=== PATIENT | male | born 1965 | race African-American/Black ===

== ENCOUNTER 2016-03-16 05:53 | Inpatient (IN) ==
[2016-03-16] MEDS ORDERED: ceFAZolin 1,000 MG VIAL ONE (07:09)
[2016-03-16] MEDS ORDERED: SODIUM CHLORIDE 0.9% 100 ML IV ONE (07:09)
[2016-03-16] MEDS ORDERED: MIDAZOLAM 2 MG/2 ML VIAL IV ONE (08:42)
[2016-03-16] MEDS ORDERED: fentaNYL 100 MCG/2 ML VIAL IV ONE (08:42)
[2016-03-16] MEDS ORDERED: DIAZEPAM 5 MG TABLET PO ONE (08:42)
[2016-03-16] MEDS ORDERED: SODIUM CHLORIDE 0.45% 1,000 ML IV SCH (09:00)
[2016-03-16] MEDS ORDERED: DIAZEPAM 5 MG TABLET ONE (09:28)
[2016-03-16 09:30] LABS: Basophils % 0.5 % (0.0-0.8); Eosinophils # 0.1 10*3/uL (0.0-0.87); Eosinophils % 1.8 % (0.00-10.9); Hematocrit 40.7 VOL% (42.0-52.0); Hemoglobin 12.4 GM/DL (14.0-18.0); Immature Granulocytes % 0.3 %; Immature Granulocytes Absolute 0.02 #; Lymphocytes # 3.2 10*3/uL (1.4-4.0); Lymphocytes % 40.4 % (21.2-54.2); Mean Corpuscular HGB Conc 30.5 GM/DL (32-36); Mean Corpuscular Hemoglobin 23 PG (27-34); Mean Corpuscular Volume 76.8 FL (87-102); Mean Platelet Volume 9.8 FL (9.6-12.0); Monocytes # 0.9 10*3/uL (0.11-0.8); Monocytes % 10.7 % (1.7-12.7); Neutrophils # 3.7 10*3/uL (1.4-7.4); Neutrophils % 46.3 % (38.7-73.9); Platelet Count 348 10*3/uL (130-400); Red Cell Distribution Width 21.7 % (9.3-17.3); White Blood Count 7.9 10*3/uL (4.5-13.71)
[2016-03-16 09:40] LABS: PT Patient Result 10.4 SECS
--- NOTE | 2016-03-16 09:45 | IR History and Physical Update ---
IR Pre-Procedure - History and Physical H&P was reviewed, the patient examined and there: are no changes in the patients condition since last H&P was completed. Reason for procedure:: PAD with ischemic ulcers left lower leg - Dictation Physical: refer to scanned H&P - Physical Exam Vital Signs: Last Vital Signs Temp 97.6 F 03/16/16 06:58 Pulse 84 03/16/16 06:58 Resp 20 03/16/16 06:58 BP 132/95 03/16/16 06:58 Pulse Ox 99 03/16/16 06:58 Mental Status: alert and oriented Heart: regular rate and rhythm Lung: clear to auscultation Abdomen: within normal limits - Sedation IR anesthesia plan for sedation: moderate ASA Class: III Airway Assessment: Class III: Soft palate, base of uvula visible - Risks Risks: Procedures explained. Risks discussed include, but not limited to, the following:[Bleeding, infection, injury to vessels ] All questions answered. The following alternatives were discussed:[Watchful waiting ] Risks and benefits discussed with: patient Consent obtained from: patient Assessment and Plan - Time spent with patient Time spent with patient: Less than 30 minutes (1) Peripheral vascular disease Problem details: LLE ischemic ulcers that are not healing Status: Acute Assessment and plan: Plan for formal arteriogram of the left lower extremity. No catheter based intervention is planned today although could be performed if indicated. Otherwise, plan is for hopeful surgical femoral-popliteal bypass if possible. Current Visit: No
[2016-03-16 09:54] LABS: Osmolality,Calculated 287.1 MOS/KG (273-304); Potassium 4.4 MMOL/L (3.5-5.1)
[2016-03-16] MEDS ORDERED: HEPARIN/NACL 0.9% 2 UNITS/ML 1,000 ML IV ONE (09:57)
[2016-03-16] MEDS ORDERED: MIDAZOLAM 2 MG/2 ML VIAL ONE (10:07)
[2016-03-16] MEDS ORDERED: fentaNYL 100 MCG/2 ML VIAL ONE (10:07)
--- NOTE | 2016-03-16 12:06 | Post Interventional Procedure ---
Pre-op diagnosis: PAD, LLE ischemic ulcerations Post-op diagnosis: same Procedure: pelvic and left lower extremity arteriogram Contrast: 90 mL Visipaque 320 Flouroscopy: 1.6 min Radiologist: Luis Carlos Guzman Anesthesia: conscious sedation Medications: 25 mcg intravenous fentanyl and 1 mg intravenous Versed and Total Sedation Time: 45 min Specimens: none sent Estimated blood loss: minimal (3 mL) Complications: none Condition: stable Description/Findings: Right common femoral artery was evaluated with ultrasound and no visualized and/ or atretic/occluded. The left common femoral artery is patent. On ultrasound, the superficial femoral artery appears to be occluded. Via a left common femoral artery access, pelvic arteriogram demonstrates essentially widely patent bilateral iliac vasculature. The left lower extremity runoff images demonstrate the deep femoral and muscular branches to the hypertrophied with complete occlusion of the proximal and mid left SFA. There is reconstitution at the distal SFA/ popliteal artery. There is a widely patent popliteal artery and trifurcation below the knee with minimal atherosclerotic disease visualized. No intervention was performed. All catheters and wires were removed. A Mynx closure device was utilized to obtain hemostasis. A sterile dressing was applied. Patient tolerated the procedure well and remained stable throughout. Assessment and Plan - Time spent with patient Time spent with patient: Greater than 30 minutes (1) Peripheral vascular disease Problem details: LLE ischemic ulcers that are not healing Status: Acute Assessment and plan: Plan for formal arteriogram of the left lower extremity. No catheter based intervention is planned today although could be performed if indicated. Otherwise, plan is for hopeful surgical femoral-popliteal bypass if possible. Current Visit: No
[2016-03-16] MEDS ORDERED: DEXTROSE 50% 25 GM/50 ML VIAL IV PRN (12:11)
[2016-03-16] MEDS ORDERED: GLUCAGON 1 MG VIAL IM PRN (12:11)
--- NOTE | 2016-03-16 12:20 | Interventional Radiology Rpt ---
IR angio extremity LT Clinical Information: 50-year-old male with diabetes mellitus, peripheral artery disease and nonhealing left lower extremity ischemic ulcers. History of right BKA and subsequent AKA for similar issues. Physician: Dr. Guzman Procedure: The patient was advised of the benefits, risks, and alternatives of the procedure and informed consent was obtained. A time out was performed with verification of the patient's name, MRN, site of procedure, and type of procedure to be performed. The patient was positioned in the supine position on the angiographic table. The site was prepped and draped in the usual sterile fashion. Moderate sedation was performed by the physician including the presence of an independent trained observer that assisted in monitoring the patient's level of consciousness and physiological status. Following the administration of 1 mg intravenous Versed and 25 mcg intravenous fentanyl the physician spent 45 minutes of continuous [id number] time with the patient. A director design radiograph reveals no relevant abnormality. 2% lidocaine was used for local anesthesia. The left common femoral artery was accessed with a microintroducer set. A short 0.018" wire was inserted and the needle was exchanged for a 4 Fr microintroducer sheath. The guidewire and dilator were removed and a 0.035" J-wire was advanced into the abdominal aorta. A 6 Fr sheath was placed over the wire. A 5F Omniflush catheter was inserted through the sheath and placed into the lower abdominal aorta. Aortography demonstrates normal caliber distal aorta and widely patent bilateral common and external iliac vessels. The Omniflush catheter was then exchanged for a 5 Cypriot straight flush catheter. The left external iliac artery was catheterized. From this position, a bolus phase runoff arteriogram covering the entire left lower extremity was performed. There is complete occlusion of the proximal and is superficial femoral artery with reconstitution via multiple collaterals at the distal SFA/proximal popliteal artery. Just above the knee, the indwelling popliteal stent is patent with mild recurrent in-stent stenosis suggested. The popliteal artery remains widely patent with minimal atherosclerotic disease posterior to the knee. There is a normal trifurcation pattern with widely patent vessels below the knee. The is anterior tibial and dorsalis pedis artery are widely patent into the foot. Given the findings, no intervention was warranted. A Mynx closure device was utilized to obtain hemostasis at the left common femoral puncture site. The patient tolerated the procedure well and was returned to the PRU in stable condition. EBL: < 5 mL. Complications: None. Fluoroscopy time: 1.6 minutes Conclusion: Complete occlusion of the proximal and mid superficial femoral arteries with reconstitution via multiple collaterals at the distal SFA/proximal popliteal artery. Otherwise widely patent popliteal vessel and trifurcation in the lower leg. PROCEDURE INTERPRETED AT [facility] DEPARTMENT OF RADIOLOGY Final Report Signed by: Luis Carlos Guzman
--- NOTE | 2016-03-16 16:20 | Event Note ---
Mr. Velasquez's arteriogram indicates a good aortoiliac system common femoral on the left is in good condition femoral was completely occluded to the popliteal and we have reasonably good popliteal flow and runoff. I think that we would be best served with a vein femoral-popliteal bypass I've advised Mr. Velasquez about this previously in the office and again today he understands poorly the risk and complications and it limb loss may eventually occurred. He understands there is risk of infection bleeding and non-usable vein that would require prosthetic device that would increase the chance of early thrombosis he agrees with the plan we will do a left femoral-popliteal bypass with vein tomorrow
[2016-03-16] MEDS ORDERED: ALBUTEROL 2.5 MG/3 ML NEB RESP TX PRN (16:30)
--- NOTE | 2016-03-16 18:03 | Hospitalist History & Physical ---
Assessment and Plan (1) Peripheral arterial disease Status: Acute Assessment and plan: due to smoking, HTN, IDDM Current Visit: Yes (2) Diabetes mellitus Status: Acute Assessment and plan: ISC, lantus, hold metformin Current Visit: No (3) Essential (primary) hypertension Status: Acute Assessment and plan: norvasc, metoprolol, lisinopril Current Visit: No History of Present Illness Chief complaint: medical management of DM and HTN History of present illness: Mr. Velasquez is a 50 year old male with history of PAD reports nonhealing wounds on his shins and calf. Angiography shows complete occlusion of the proximal and mid superficial femoral arteries with reconstitution and collaterals in the distal superficial femoral artery and proximal popliteal artery patient's leg is quite swollen as he keeps it hanging down because he said the pain is better. Dr. Wallace asked us to manage his diabetes and hypertension while in the hospital. Patient had today and we will hold his metformin. Home Medications Medication Instructions Recorded Confirmed Type Amlodipine Besylate 10 mg PO DAILY 04/11/15 03/16/16 History Clopidogrel Bisulfate [Clopidogrel] 75 mg PO DAILY 04/11/15 03/16/16 History Lovastatin 10 mg PO DAILY W/BREAKFAST 04/11/15 03/16/16 History Metoprolol Tartrate 100 mg PO DAILY 04/11/15 03/16/16 History Insulin Glargine [Lantus] 35 unit SUBCUT 2300 09/12/15 03/16/16 History Lisinopril 10 mg PO DAILY 09/12/15 03/16/16 History metFORMIN [Glucophage] 850 mg PO TID 01/29/16 03/16/16 History Cilostazol [Pletal] 50 mg PO DAILY 03/13/16 03/16/16 History Albuterol Sulfate [Ventolin HFA] 2 puff INH Q4HR PRN 03/16/16 03/16/16 History Gabapentin 100 mg PO BID 03/16/16 03/16/16 History Montelukast Tab [Singulair Tab] 10 mg PO DAILY 03/16/16 03/16/16 History Allergies Allergy/AdvReac Type Severity Reaction Status Date / Time sulfamethoxazole Allergy Severe ANAPHYLAXIS Verified 01/29/16 08:58 [From Bactrim] trimethoprim [From Bactrim] Allergy Severe ANAPHYLAXIS Verified 01/29/16 08:58 Medical,Surgical,& Family Hx - Medical History Cardio: History of: Hypertension, Cardiovascular Problems (dvt in left leg) Neurology: History of: Cerebrovascular Accident (Mr. Velasquez reports multiple strokes in he believes 2008), Migraine (past history) No history of: Seizures HEENT: History of: Eye Problem (no vision in left eye and poor vision in right eye, glasses), Dental Problems Endocrine: History of: Diabetes Mellitus (IDDM), Dyslipidemia Respiratory: History of: Asthma (PT STATES HE DOES NOT USE INHALER), Bronchitis (past history) Genitourinary: History of: Kidney Stones (DR FRANCOIS) Gastrointestinal: History of: GI Problems (occasional diarrhea and stomach pains ) Musculoskeletal: History of: Amputation (Rt AKA), Back/Neck Problems (lower back pains), Musculoskeletal Problems (arthritis) Hematology: History of: Clotting Problems (blood clot in left leg and left carotid artery) No history of: Blood Transfusion Reaction Other: History of: Miscellaneous Medical Problems (NON HEALING WOUND TO LEFT LOWER EXT., rt AKA) No history of: Anesthesia Reactions - Surgical History Cardiac Surgeries: Sugical HX of: Femoral-Popliteal Bypass Graft, Carotid Endarterectomy (left DR WALLACE 2006) HEENT Surgeries: Surgical HX of: Carotid Endarterectomy (left DR WALLACE 2006), Eye Surgery (2006) Abdominal Surgeries: Surgical HX of: Colonoscopy Orthopedic Surgeries: Surgical HX of;: Implanted Devices (bilateral femoral stents), Orthopedic Surgery (bilateral knee scope) - Family History Family History: Reports;: Family Diabetes (Mother, Father), Family Heart Disease (Mother, Father), Family Hypertension (Mother, Father), Family Stroke ( Mother, Father) Denies;: Family Anesthesia Reaction, Family Cancer, Family Psychiatric Problems - Social History Smoking Status: Current every day smoker Frequency of Alcohol Use: None Type of Drug Use: None Marital Status: Single Lives With:: Alone Functional capacity: uses cane/walker - Constitutional Constitutional: Absent: fatigue, fever(s), headache(s) - EENT Eyes: Present: loss of vision (left blind from stroke ). Absent: blurry vision Ears: Absent: decreased hearing, ear discharge Nose, mouth and throat: Absent: headache(s), sore throat - Cardiovascular Cardiovascular: Present: dyspnea on exertion, edema. Absent: chest pain at rest , chest pain with activity, dyspnea - Respiratory Respiratory: Present: cough, dyspnea on exertion, wheezing, change in phlegm color. Absent: dyspnea - Gastrointestinal Gastrointestinal: Absent: constipation, diarrhea, nausea, vomiting - Genitourinary Genitourinary: Absent: difficulty urinating, dysuria - Neurological Neurological: Absent: confusion, headache(s), syncope - Psychiatric Psychiatric: Present: depression. Absent: anxiety - Endocrine Endocrine: Absent: cold intolerance, heat intolerance - Hematologic/Lymphatic Hematologic/Lymphatic: Absent: easy bleeding, easy bruising Exam - Constitutional Vitals: Period Temp Pulse Resp BP Sys/Kennedy Pulse Ox Last 24 Hr 97.6 F-97.7 F 77-93 14-20 108-162/55-95 96-100 General appearance: normal weight, no acute distress - Head Head exam: Present: normal inspection, normocephalic - Eye Eye exam: Present: EOMI. Absent: scleral icterus Pupils: Present: EM, normal accommodation - ENT ENT exam: Present: normal exam, normal external ear exam - Neck Neck exam: Absent: lymphadenopathy, thyromegaly - Respiratory Respiratory exam: Present: clear to auscultation bilaterally (clear with coughing ), wheezes. Absent: rhonchi - Cardiovascular Cardiovascular exam: Present: regular rate and rhythm. Absent: systolic murmur - GI/Abdominal GI/Abdominal exam: Present: normal bowel sounds, soft. Absent: tenderness - Extremities Exam Extremities exam: Present: edema (2+ edema) - Neurological Exam Neurological exam: Present: alert, oriented X3, CN II-XII intact, motor sensory deficit (diminished sensation to left leg ) - Psychiatric Psychiatric exam: Present: normal affect, normal mood Results - Labs CBC & BMP: 03/16/16 09:23 03/16/16 09:23 Lab Results: I have reviewed the past 24 hour labs - Diagnostic Findings Procedure: X-ray: report reviewed by me (Angiogram showed complete occlusion of the proximal mid superficial femoral arteries with collaterals in the distal superficial femoral artery and proximal popliteal artery)
--- NOTE | 2016-03-16 18:45 | XRay Report ---
XR chest 1V portable Indication: Shortness of breath. Chest one view: Comparison 01/31/2016. Heart size and mediastinal contour are normal. Lungs are hypoinflated but generally clear, except for minimal bibasilar atelectasis. Pleural spaces are clear. Bones are intact. Impression: Mild pulmonary hypoinflation with atelectasis. PROCEDURE INTERPRETED AT [facility] DEPARTMENT OF RADIOLOGY Final Report Signed by: Matias Beltran M.D.
[2016-03-16] MEDS: ALBUTEROL/IPRATROPIUM 3 ML NEB RESP TX SCH (19:07)
[2016-03-16] MEDS: GABAPENTIN 100 MG CAPSULE PO SCH (20:49)
[2016-03-16] MEDS: INSULIN LISPRO 100 UNIT/ML SUBCUT SCH (20:49)
[2016-03-16] MEDS ORDERED: INSULIN GLARGINE 100 UNIT/ML SUBCUT SCH (23:00)
[2016-03-17] MEDS: ALBUTEROL/IPRATROPIUM 3 ML NEB RESP TX SCH ×7 (00:41→23:00)
[2016-03-17] MEDS ORDERED: ALBUTEROL/IPRATROPIUM 3 ML NEB RESP TX ONE (06:00)
[2016-03-17] MEDS ORDERED: VANCOMYCIN INJ 1,000 MG in SODIUM CHLORIDE 0.9% 250 ML IV ONE (07:00)
[2016-03-17] MEDS: METOPROLOL TARTRATE 100 MG TABLET PO SCH ×2 (07:51→09:58)
[2016-03-17] MEDS: amLODIPine 10 MG TABLET PO SCH ×2 (07:51→08:02)
[2016-03-17] MEDS: NICOTINE 21 MG/24 HR PATCH TRANSDERM SCH ×2 (07:51→08:02)
[2016-03-17] MEDS: LISINOPRIL 10 MG TABLET PO SCH ×2 (07:51→08:02)
[2016-03-17] MEDS: INSULIN LISPRO 100 UNIT/ML SUBCUT SCH ×4 (07:54→20:21)
[2016-03-17] MEDS: CILOSTAZOL 50 MG TABLET PO SCH (08:02)
[2016-03-17] MEDS: CLOPIDOGREL 75 MG TABLET PO SCH (08:02)
[2016-03-17] MEDS ORDERED: BUPIVACAINE 0.5% 50 ML VIAL ONE (08:14)
[2016-03-17] MEDS ORDERED: HEPARIN 5,000 UNIT/1 ML VIAL ONE (08:14)
[2016-03-17] MEDS ORDERED: THROMBIN TOPICAL (RECOMBINANT) 5,000 UNIT VIAL TOP ONE (08:14)
[2016-03-17] MEDS ORDERED: ROCURONIUM 100 MG/10 ML VIAL IV ONE (08:31)
[2016-03-17] MEDS ORDERED: ESMOLOL 100 MG/10 ML VIAL IV ONE (08:31)
[2016-03-17] MEDS ORDERED: LIDOCAINE 1% 5 ML VIAL ONE (08:31)
[2016-03-17] MEDS ORDERED: PROPOFOL 200 MG/20 ML VIAL IV ONE (08:31)
[2016-03-17] MEDS ORDERED: PHENYLEPHRINE 1 MG/10 ML SYRINGE IV ONE (08:31)
[2016-03-17] MEDS ORDERED: METOPROLOL TARTRATE 5 MG/5 ML VIAL IV ONE (08:31)
[2016-03-17] MEDS ORDERED: ONDANSETRON 4 MG/2 ML VIAL IV PRN ×2 (12:29→13:14)
[2016-03-17] MEDS ORDERED: SEVOFLURANE 1 UNIT/15 MINUTE INH ONE (12:39)
[2016-03-17] MEDS ORDERED: MIDAZOLAM 2 MG/2 ML VIAL ONE (12:39)
[2016-03-17] MEDS ORDERED: fentaNYL 100 MCG/2 ML VIAL ONE ×2 (12:39)
[2016-03-17 12:49] LABS: Hematocrit 37.6 VOL% (42.0-52.0); Hemoglobin 11.6 GM/DL (14.0-18.0)
[2016-03-17] MEDS: LACTATED RINGERS 1,000 ML IV SCH (12:51)
[2016-03-17] MEDS ORDERED: HYDROmorphone 2 MG/1 ML VIAL IV PRN (13:14)
[2016-03-17 13:16] LABS: Calcium 8.2 MG/DL (8.5-10.1); Osmolality,Calculated 285.3 MOS/KG (273-304); Potassium 4.8 MMOL/L (3.5-5.1)
[2016-03-17] MEDS: GABAPENTIN 100 MG CAPSULE PO SCH ×2 (13:55→20:21)
[2016-03-17] MEDS: MONTELUKAST 10 MG TABLET PO SCH (13:55)
[2016-03-17] MEDS: LOVASTATIN 20 MG TABLET PO SCH (13:55)
[2016-03-17] MEDS: VANCOMYCIN INJ 1,000 MG in SODIUM CHLORIDE 0.9% 250 ML IV SCH (15:01)
[2016-03-17] MEDS: HYDROmorphone 2 MG/1 ML VIAL IV PRN ×2 (15:02→21:43)
--- NOTE | 2016-03-17 15:19 | Hospitalist Progress Note ---
Assessment and Plan (1) Peripheral arterial disease Status: Acute Assessment and plan: due to smoking, HTN, IDDM, s/p fem pop bypass Current Visit: Yes (2) Diabetes mellitus Status: Acute Assessment and plan: ISC, increase lantus Current Visit: No (3) Essential (primary) hypertension Status: Acute Assessment and plan: cont metoprolol and lisinopril, hold norvasc Current Visit: No Hospitalist: Subjective Interval history: Saw patient in recovery room. Patient was snoring we elevated the head of the bed so he can breathe better. He was still sedated from anesthesia. Exam - Constitutional Vitals: Period Temp Pulse Resp BP Sys/Kennedy Pulse Ox Last 24 Hr 97 F-98.4 F 70-98 13-26 109-138/60-94 93-100 Exam: Heart Rate-[RRR] Lungs-[CTAB] GI-[+bs soft, NT] Ext-[no edema] Neuro still waking up psych unable to assess general no acute distress Results - Labs CBC & BMP: 03/17/16 12:45 03/17/16 12:45 Lab Results: I have reviewed the past 24 hour labs Quality Measures - VTE Contraindication to Pharmacological VTE Prophylaxis: High Risk of Bleeding
--- NOTE | 2016-03-17 16:41 | Operative Note ---
DATE: 03/17/2016 SURGEON: Kyle Wallace MD ANESTHESIA: Jennie, general endotracheal. PREOPERATIVE DIAGNOSIS: DIABETIC PERIPHERAL VASCULAR DISEASE WITH ISCHEMIC ULCERS, NONHEALING OF THE LEFT LOWER LEG. POSTOPERATIVE DIAGNOSIS: SAME. OPERATION PERFORMED: A left femoral popliteal bypass with in situ saphenous vein, on-table venography and completion arteriography. Note: Extra difficulty due to scarring from previous vascular procedures at the common femoral artery. INDICATION FOR THE PROCEDURE: Mr. Velasquez is a 50-year-old man with diabetes and diabetic peripheral vascular disease. He has undergone previous left femoral endarterectomy, remote endarterectomy, and stenting. He has had multiple procedures on the right leg that eventually resulted in a right above- knee amputation. He has got ischemic ulcers of the left lower leg with rest pain. I have offered a left femoral popliteal bypass hopefully with vein, explaining the alternatives, risks, and complications all of which he understands well and accepts. DESCRIPTION OF THE PROCEDURE: After the induction of general endotracheal anesthesia, the patient's abdomen and leg to the midcalf are prepped with ChloraPrep and Ioban. The lower foot with ulcers is prepped with ChloraPrep and covered with an isolation bag and wrapped with Ioban as well. I began at the groin making an incision over the femoral canal through the previous incision. This was carried down to the femoral canal. The saphenous vein was noted. It had been previously evaluated with ultrasound and appeared to be adequate. I dissected the proximal saphenous vein using 4-0 silk suture ligatures and hemoclips to control side branches dissected all the way to the saphenofemoral junction. I then spent a great deal of extra time exposing the common femoral and profunda femoris and superficial femoral arteries. These were markedly scarred from the previous remote endarterectomy approximately 8 to 10 years ago. This took a good bit of time but eventually I was able to control the common femoral artery under the inguinal ligament, the profunda. The superficial femoral was completely scarred and non-patent. These were covered. I then turned my attention to the lower leg. The patient appeared to have a popliteal artery that was patent above the knee, although very close and with a stent in the proximal popliteal artery. I marked the saphenous vein, which was a bit more posterior than I would normally use. I initially made an incision and exposed the saphenous vein, which did appear to be a good vein. I dissected into the popliteal space and noted that I could use the popliteal artery just above the knee. It was controlled with vessel loops as well. The patient received 5000 units of intravenous Heparin. In initially turned my attention again to the groin, where I controlled the saphenofemoral junction with a Satinsky and divided the saphenofemoral junction and oversewed the femoral vein with a running 5-0 Prolene suture. Proximal valve lysis was carried out. I then opened the femoral artery. I actually completely divided the superficial femoral away from the bifurcation and got a good opening that gave good visualization of the profunda and the common femoral. This proximal saphenous vein was anastomosed end-to-side to the common femoral artery with a running 5-0 Prolene under loupe magnification getting good flow into the proximal saphenous vein. I turned my attention to the lower leg and divided the distal saphenous vein at a length that would allow an anastomosis to the mid popliteal artery. I initially performed a valve lysis with a LeMaitre valvulotome getting good flow in the distal vein. I then used a catheter and performed a venography noting the side branches that would cause fistulas, these were marked. I then opened the popliteal artery taking a small wedge of the artery out. The vein was trimmed and anastomosed end-to-side to the popliteal artery with a running 6-0 Prolene suture, again using loupe magnification. I initiated flow from the vein graft into the proximal popliteal and then into the distal popliteal and initially flow appeared to be good. I began taking down further vein to get to the branches for control. As I did so, I suddenly lost flow in the saphenous vein at a level at about these branches. I spent a bit of time doing further venography, and I had to open the vein distally and perform further valve lysis to restore flow. Then, I had good Doppler flow. The proximal branches were controlled. Completion arteriography showed a good vein graft flowing into the popliteal artery with good flow into the lower leg. I did not try to visualize all the way to the foot or ankle, however. The small venotomies were closed with 6-0 Prolene suture. Flow was good. I did not reverse Heparin. The incisions were irrigated with saline and Vancomycin. SurgiSeal was placed over each anastomosis. The incisions were closed with layers of running 2-0 Monocryl and skin clips. A 1/4-inch Vidor drain was placed at the popliteal incision to allow drainage overnight. Blood loss is estimated at 200 to 250 cc. Sponge, needle, and instrument counts are correct, and the patient taken to recovery in stable condition. Again, note that this procedure was more difficult than normal due to the amount of scarring at the common femoral artery. COLT
--- NOTE | 2016-03-17 17:34 | Event Note ---
Mr. Velaqsuez is awake alert and well his foot is warm. No hematoma in the groins for popliteal space
[2016-03-17] MEDS: oxyCODONE/ACETAMINOPHEN 5-325 MG TABLET PO PRN (20:21)
[2016-03-17] MEDS: INSULIN GLARGINE 100 UNIT/ML SUBCUT SCH (23:17)
[2016-03-18] MEDS: LACTATED RINGERS 1,000 ML IV SCH ×2 (00:40→10:02)
[2016-03-18] MEDS: VANCOMYCIN INJ 1,000 MG in SODIUM CHLORIDE 0.9% 250 ML IV SCH ×2 (00:40→12:05)
[2016-03-18] MEDS: HYDROmorphone 2 MG/1 ML VIAL IV PRN (01:36)
[2016-03-18] MEDS: ALBUTEROL/IPRATROPIUM 3 ML NEB RESP TX SCH ×5 (02:40→19:25)
[2016-03-18 04:39] LABS: Basophils % 0.3 % (0.0-0.8); Eosinophils # 0.1 10*3/uL (0.0-0.87); Eosinophils % 0.7 % (0.00-10.9); Hematocrit 31.5 VOL% (42.0-52.0); Hemoglobin 9.7 GM/DL (14.0-18.0); Immature Granulocytes % 0.3 %; Immature Granulocytes Absolute 0.05 #; Lymphocytes # 4.1 10*3/uL (1.4-4.0); Lymphocytes % 28.1 % (21.2-54.2); Mean Corpuscular HGB Conc 30.8 GM/DL (32-36); Mean Corpuscular Hemoglobin 24 PG (27-34); Mean Corpuscular Volume 77.6 FL (87-102); Mean Platelet Volume 10.4 FL (9.6-12.0); Monocytes # 1.7 10*3/uL (0.11-0.8); Monocytes % 11.7 % (1.7-12.7); Neutrophils # 8.6 10*3/uL (1.4-7.4); Neutrophils % 58.9 % (38.7-73.9); Platelet Count 289 T/CUMM (130-400); Red Blood Count 4.06 MC/CUMM (3.8-5.5); Red Cell Distribution Width 21.5 % (9.3-17.3); White Blood Count 14.7 T/CUMM (4-12)
[2016-03-18] MEDS: oxyCODONE/ACETAMINOPHEN 5-325 MG TABLET PO PRN ×2 (04:49→17:30)
[2016-03-18 05:10] LABS: Calcium 8.4 MG/DL (8.5-10.1); Osmolality,Calculated 285.3 MOS/KG (273-304); Potassium 4.5 MMOL/L (3.5-5.1)
[2016-03-18] MEDS: CLOPIDOGREL 75 MG TABLET PO SCH (09:55)
[2016-03-18] MEDS: CILOSTAZOL 50 MG TABLET PO SCH (09:55)
[2016-03-18] MEDS: ASPIRIN CHEW 81 MG TABLET PO SCH (09:55)
[2016-03-18] MEDS: LOVASTATIN 20 MG TABLET PO SCH (09:56)
[2016-03-18] MEDS: MONTELUKAST 10 MG TABLET PO SCH (09:56)
[2016-03-18] MEDS: GABAPENTIN 100 MG CAPSULE PO SCH ×2 (09:56→22:00)
[2016-03-18] MEDS: INSULIN LISPRO 100 UNIT/ML SUBCUT SCH ×4 (09:57→22:00)
[2016-03-18] MEDS: NICOTINE 21 MG/24 HR PATCH TRANSDERM SCH (09:58)
[2016-03-18] MEDS: METOPROLOL TARTRATE 100 MG TABLET PO SCH (10:05)
[2016-03-18] MEDS: LISINOPRIL 10 MG TABLET PO SCH (10:05)
--- NOTE | 2016-03-18 11:13 | Event Note ---
Mr. Velasquez's foot remains warm and is much more comfortableincisions look good no hematomas I removed the [place] drain I've got a good Doppler flow in the vein graft. I don't really palpate any pedal pulses. We will get him up out of the bed and I'll ask wound care diet today with these lower
--- NOTE | 2016-03-18 11:35 | Anesthesia ---
Anesthesia Post OP - Post Ansesthetic Evaluation Patient seen in post op: Yes Resp: within normal limits CV: within normal limits Mental: within normal limits Temp: within normal limits Aldm-Rq-[id number]: within normal limits Nausea and Vomiting: within normal limits Pain: within normal limits
--- NOTE | 2016-03-18 13:10 | Hospitalist Progress Note ---
Assessment and Plan (1) Peripheral arterial disease Status: Acute Assessment and plan: due to smoking, HTN, IDDM, s/p fem pop bypass doing well Current Visit: Yes (2) Diabetes mellitus Status: Acute Assessment and plan: ISC, not controlled, will add metformin tomorrow, started glyburide 5 mg po bid Current Visit: No (3) Essential (primary) hypertension Status: Acute Assessment and plan: Change metoprolol to 50 mg p.o. twice daily Current Visit: No Hospitalist: Subjective Interval history: Patient was offered a place to go for rehab but he has declined. He usually declines due to the fact that he cannot smoke in rehab. We will set up home health for him. His foot is warm when I examined it today. Dr. Wallace and I discussed the case. Exam - Constitutional Vitals: Period Temp Pulse Resp BP Sys/Kennedy Pulse Ox Last 24 Hr 97.3 F-98.7 F 81-121 13-20 95-137/52-94 93-100 Exam: Heart Rate-[tachy] Lungs-[CTAB] GI-[+bs soft, NT] Ext-[no edema] Neuro motor 5 out of 5, alert and oriented 3 psych normal mood and affect general no acute distress Results - Labs CBC & BMP: 03/18/16 04:01 03/18/16 04:01 Lab Results: I have reviewed the past 24 hour labs Quality Measures - VTE Contraindication to Pharmacological VTE Prophylaxis: High Risk of Bleeding
[2016-03-18] MEDS: glyBURIDE 5 MG TABLET PO SCH (16:52)
[2016-03-18] MEDS: COLLAGENASE OINT 30 GM TUBE TOP SCH (18:59)
[2016-03-18] MEDS: SODIUM HYPOCHLORITE 0.25% IRRIG 473 ML BOTTLE TOP SCH (18:59)
[2016-03-18] MEDS: METOPROLOL TARTRATE 50 MG TABLET PO SCH (22:00)
[2016-03-18] MEDS: INSULIN GLARGINE 100 UNIT/ML SUBCUT SCH (22:00)
[2016-03-19] MEDS: ALBUTEROL/IPRATROPIUM 3 ML NEB RESP TX SCH ×5 (00:21→14:03)
[2016-03-19] MEDS: HYDROmorphone 2 MG/1 ML VIAL IV PRN ×2 (04:15→22:35)
--- NOTE | 2016-03-19 09:18 | Event Note ---
Mr. Velasquez's foot remains warm today palpate a pulse in the vein graft wounds are started clean and local care. I'm going to plan for him morning with home health
[2016-03-19] MEDS: INSULIN LISPRO 100 UNIT/ML SUBCUT SCH ×4 (09:32→22:37)
[2016-03-19] MEDS: glyBURIDE 5 MG TABLET PO SCH ×2 (09:51→18:53)
[2016-03-19] MEDS: NICOTINE 21 MG/24 HR PATCH TRANSDERM SCH (09:51)
[2016-03-19] MEDS: GABAPENTIN 100 MG CAPSULE PO SCH ×2 (09:51→22:37)
[2016-03-19] MEDS: ASPIRIN CHEW 81 MG TABLET PO SCH (09:51)
[2016-03-19] MEDS: CILOSTAZOL 50 MG TABLET PO SCH (09:51)
[2016-03-19] MEDS: METOPROLOL TARTRATE 50 MG TABLET PO SCH ×2 (09:51→22:36)
[2016-03-19] MEDS: LOVASTATIN 20 MG TABLET PO SCH (09:51)
[2016-03-19] MEDS: CLOPIDOGREL 75 MG TABLET PO SCH (09:51)
[2016-03-19] MEDS: MONTELUKAST 10 MG TABLET PO SCH (09:51)
[2016-03-19] MEDS: oxyCODONE/ACETAMINOPHEN 5-325 MG TABLET PO PRN ×2 (09:52→15:59)
[2016-03-19] MEDS: LISINOPRIL 10 MG TABLET PO SCH (13:04)
[2016-03-19] MEDS ORDERED: ACETAMINOPHEN 325 MG TABLET PO PRN (15:38)
--- NOTE | 2016-03-19 15:44 | Hospitalist Progress Note ---
Assessment and Plan (1) Peripheral arterial disease Status: Acute Assessment and plan: due to smoking, HTN, IDDM, s/p fem pop bypass doing well Current Visit: Yes (2) Diabetes mellitus Status: Acute Assessment and plan: ISC, restarted metformin Current Visit: No (3) Essential (primary) hypertension Status: Acute Assessment and plan: Cont metoprolol to 50 mg p.o. twice daily Current Visit: No (4) Fever Status: Acute Assessment and plan: Blood cultures 2, UA, start vancomycin, monitor CBC Current Visit: Yes (5) COPD (chronic obstructive pulmonary disease) Status: Acute Assessment and plan: Stable, stop breathing treatments. Current Visit: Yes Hospitalist: Subjective Interval history: Patient running fevers to yesterday. Wounds look chronic. New surgical site looks excellent. We will draw some blood cultures and start some vancomycin and monitor. Blood sugars are too high. Exam - Constitutional Vitals: Period Temp Pulse Resp BP Sys/Kennedy Pulse Ox Last 24 Hr 97.4 F-101.7 F 70-130 18-22 104-135/57-65 92-100 Exam: Heart Rate-[tachy] Lungs-[CTAB] GI-[+bs soft, NT] Ext-[no edema] Neuro motor 5 out of 5, alert and oriented 3 psych normal mood and affect general no acute distress wound chronic noninfected nonhealing wound in left lower extremity, surgical site looks good Results - Labs CBC & BMP: 03/18/16 04:01 03/18/16 04:01 Lab Results: I have reviewed the past 24 hour labs Quality Measures - VTE Contraindication to Pharmacological VTE Prophylaxis: High Risk of Bleeding
[2016-03-19] MEDS ORDERED: VANCOMYCIN INJ 1,000 MG in SODIUM CHLORIDE 0.9% 250 ML IV SCH (16:00)
[2016-03-19] MEDS: VANCOMYCIN INJ 1,750 MG in SODIUM CHLORIDE 0.9% 500 ML IV SCH (18:08)
[2016-03-19] MEDS: metFORMIN 500 MG TABLET PO SCH (18:47)
[2016-03-19] MEDS: SODIUM HYPOCHLORITE 0.25% IRRIG 473 ML BOTTLE TOP SCH (19:28)
[2016-03-19] MEDS: COLLAGENASE OINT 30 GM TUBE TOP SCH (19:29)
[2016-03-19 19:46] LABS: Apearance,Urine Slightly Hazy (Clear); Bilirubin,Urine Negative (Negative); Blood, Urine Negative (Negative); Glucose,Urine (UA) >=500 mg/dL (Negative); Ketones,Urine Negative (Negative); Mucus,Urine Occasional /LPF (Occasional); Nitrite,Urine Negative (Negative); Protein,Urine Negative; RBC,Urine 1 /HPF (0-4); Squamous Epithelial Cell,Urine Occasional /HPF (0-10); Urine Color Yellow (Yellow); Urine Urobilinogen < 2.0 EU/DL (0.2-1.0); WBC,Urine 3 /HPF (0-6)
[2016-03-19] MEDS: INSULIN GLARGINE 100 UNIT/ML SUBCUT SCH (22:37)
[2016-03-20] MEDS: VANCOMYCIN INJ 1,750 MG in SODIUM CHLORIDE 0.9% 500 ML IV SCH ×3 (05:28→22:53)
[2016-03-20] MEDS: HYDROmorphone 2 MG/1 ML VIAL IV PRN ×3 (05:37→22:47)
[2016-03-20 06:25] LABS: Basophils % 0.2 % (0.0-0.8); Eosinophils # 0.2 10*3/uL (0.0-0.87); Eosinophils % 1.8 % (0.00-10.9); Hematocrit 30.3 VOL% (42.0-52.0); Hemoglobin 9.3 GM/DL (14.0-18.0); Immature Granulocytes % 0.3 %; Immature Granulocytes Absolute 0.03 #; Lymphocytes # 2.4 10*3/uL (1.4-4.0); Lymphocytes % 21.5 % (21.2-54.2); Mean Corpuscular HGB Conc 30.7 GM/DL (32-36); Mean Corpuscular Hemoglobin 24 PG (27-34); Mean Corpuscular Volume 76.7 FL (87-102); Mean Platelet Volume 10.3 FL (9.6-12.0); Monocytes # 1.7 10*3/uL (0.11-0.8); Monocytes % 15.2 % (1.7-12.7); Neutrophils # 6.7 10*3/uL (1.4-7.4); Platelet Count 268 T/CUMM (130-400); Red Blood Count 3.95 MC/CUMM (3.8-5.5); Red Cell Distribution Width 21.3 % (9.3-17.3)
--- NOTE | 2016-03-20 08:12 | Event Note ---
Estrellita Velasquez had a left femoral [id number] popliteal bypass with in situ vein on Wednesday has some chronic ischemic ulcers of the left lower leg and appear to be doing well has a weakly palpable pulse in the vein graft that's actually fairly deep under the tissues. He developed fever and was started on vancomycin yesterday with fever has resolved and he does not have a significant elevation was white blood count blood cultures are pending. I had anticipated letting him go home today with the fever and blood cultures I think we should continue him here on vancomycin until that issue is
[2016-03-20] MEDS: INSULIN LISPRO 100 UNIT/ML SUBCUT SCH ×4 (09:20→20:39)
[2016-03-20] MEDS: LISINOPRIL 10 MG TABLET PO SCH (09:21)
[2016-03-20] MEDS: CILOSTAZOL 50 MG TABLET PO SCH (09:21)
[2016-03-20] MEDS: LOVASTATIN 20 MG TABLET PO SCH (09:21)
[2016-03-20] MEDS: METOPROLOL TARTRATE 50 MG TABLET PO SCH ×2 (09:21→20:40)
[2016-03-20] MEDS: MONTELUKAST 10 MG TABLET PO SCH (09:21)
[2016-03-20] MEDS: GABAPENTIN 100 MG CAPSULE PO SCH ×2 (09:21→20:40)
[2016-03-20] MEDS: CLOPIDOGREL 75 MG TABLET PO SCH (09:21)
[2016-03-20] MEDS: NICOTINE 21 MG/24 HR PATCH TRANSDERM SCH (09:22)
[2016-03-20] MEDS: glyBURIDE 5 MG TABLET PO SCH ×2 (09:22→17:23)
[2016-03-20] MEDS: metFORMIN 500 MG TABLET PO SCH ×2 (09:22→17:23)
[2016-03-20] MEDS: ASPIRIN CHEW 81 MG TABLET PO SCH (09:22)
[2016-03-20] MEDS: COLLAGENASE OINT 30 GM TUBE TOP SCH (09:28)
[2016-03-20] MEDS: SODIUM HYPOCHLORITE 0.25% IRRIG 473 ML BOTTLE TOP SCH (09:28)
--- NOTE | 2016-03-20 11:24 | Hospitalist Progress Note ---
Assessment and Plan (1) Peripheral arterial disease Status: Acute Assessment and plan: due to smoking, HTN, IDDM, s/p fem pop bypass doing well Current Visit: Yes (2) Diabetes mellitus Status: Acute Assessment and plan: ISC, continue glyburide and metformin Current Visit: No (3) Essential (primary) hypertension Status: Acute Assessment and plan: Cont metoprolol to 50 mg p.o. twice daily Current Visit: No (4) Fever Status: Acute Assessment and plan: Blood cultures 2 pending, UA negative, continue vancomycin, CBC improved, no source found, repeat chest x-ray may be just atelectasis Current Visit: Yes (5) COPD (chronic obstructive pulmonary disease) Status: Acute Assessment and plan: Stable, stop breathing treatments. Current Visit: Yes Hospitalist: Subjective Interval history: Patient is feeling better today. His fevers are better but we do not have a source of his infection. His wounds look excellent. I am awaiting his first set of blood cultures. Blood sugars are still running high but I restarted his metformin yesterday. Exam - Constitutional Vitals: Period Temp Pulse Resp BP Sys/Kennedy Pulse Ox Last 24 Hr 98.2 F-99.3 F 98-111 17-18 93-114/53-68 94-100 Exam: Heart Rate-[tachy] Lungs-[CTAB] GI-[+bs soft, NT] Ext-[no edema] Neuro motor 5 out of 5, alert and oriented 3 psych normal mood and affect general no acute distress skin bottom no wounds Results - Labs CBC & BMP: 03/20/16 05:40 03/18/16 04:01 Lab Results: I have reviewed the past 24 hour labs Labs: blood cx pending, ua negative, Quality Measures - VTE Contraindication to Pharmacological VTE Prophylaxis: High Risk of Bleeding
--- NOTE | 2016-03-20 12:31 | XRay Report ---
Referring Physician: Fatemeh Wayne Exam: XR chest 1V Date: March 20, 2016 at 12:10 PM Reason: Fever Comparison: Chest one view portable March 16, 2016 Findings: The cardiac silhouette is normal in size for the portable technique. No focal consolidation, pneumothorax or pleural effusion is identified. No acute osseous process is seen. Impression: No acute cardiopulmonary process is identified. PROCEDURE INTERPRETED AT [facility] DEPARTMENT OF RADIOLOGY Final Report Signed by: Dr. Liset Fernández
--- NOTE | 2016-03-20 14:27 | Event Note ---
Patient seen with wound care nurse, Charisma. Did a selective debridement of devitalized tissue of the left lower extremity wounds using scissors and curette. Anterior wound taken down to good healthy tissue. Pressure applied to stop bleeding. The posterior wound noted to have two areas of necrotic tissue that will need removal by a scalpel. Also, serous drainage noted from left thigh incision. There is redness throughout the leg and tightness due to fluid buildup. No purulence expressed from thigh wound. Discussed with Dr. Wallace who will look at posterior lower leg wound on Wednesday to see if it needs further debridement. He wanted to keep khloe in thigh wound as long as no purulence noted .
[2016-03-20] MEDS: INSULIN GLARGINE 100 UNIT/ML SUBCUT SCH (22:43)
[2016-03-21 03:52] LABS: Basophils % 0.2 % (0.0-0.8); Eosinophils # 0.2 10*3/uL (0.0-0.87); Eosinophils % 2.3 % (0.00-10.9); Hematocrit 29.1 VOL% (42.0-52.0); Hemoglobin 9.2 GM/DL (14.0-18.0); Immature Granulocytes % 0.3 %; Immature Granulocytes Absolute 0.03 #; Lymphocytes % 29.8 % (21.2-54.2); Mean Corpuscular HGB Conc 31.6 GM/DL (32-36); Mean Corpuscular Hemoglobin 24 PG (27-34); Mean Corpuscular Volume 75.2 FL (87-102); Mean Platelet Volume 9.9 FL (9.6-12.0); Monocytes # 1.4 10*3/uL (0.11-0.8); Neutrophils # 5.4 10*3/uL (1.4-7.4); Neutrophils % 53.4 % (38.7-73.9); Platelet Count 282 T/CUMM (130-400); Red Blood Count 3.87 MC/CUMM (3.8-5.5); White Blood Count 10.1 T/CUMM (4-12)
[2016-03-21] MEDS: INSULIN LISPRO 100 UNIT/ML SUBCUT SCH ×4 (07:50→21:25)
[2016-03-21] MEDS: NICOTINE 21 MG/24 HR PATCH TRANSDERM SCH (08:15)
[2016-03-21] MEDS: metFORMIN 500 MG TABLET PO SCH ×2 (08:16→16:43)
[2016-03-21] MEDS: LOVASTATIN 20 MG TABLET PO SCH (08:16)
[2016-03-21] MEDS: ASPIRIN CHEW 81 MG TABLET PO SCH (08:16)
[2016-03-21] MEDS: GABAPENTIN 100 MG CAPSULE PO SCH ×2 (08:16→21:25)
[2016-03-21] MEDS: CILOSTAZOL 50 MG TABLET PO SCH (08:16)
[2016-03-21] MEDS: glyBURIDE 5 MG TABLET PO SCH ×2 (08:17→16:43)
[2016-03-21] MEDS: CLOPIDOGREL 75 MG TABLET PO SCH (08:17)
[2016-03-21] MEDS: LISINOPRIL 10 MG TABLET PO SCH (08:17)
[2016-03-21] MEDS: MONTELUKAST 10 MG TABLET PO SCH (08:17)
[2016-03-21] MEDS: METOPROLOL TARTRATE 50 MG TABLET PO SCH ×2 (08:17→21:25)
[2016-03-21] MEDS: VANCOMYCIN INJ 1,750 MG in SODIUM CHLORIDE 0.9% 500 ML IV SCH ×2 (09:31→22:51)
[2016-03-21] MEDS: SODIUM HYPOCHLORITE 0.25% IRRIG 473 ML BOTTLE TOP SCH (09:31)
[2016-03-21] MEDS: COLLAGENASE OINT 30 GM TUBE TOP SCH (09:31)
--- NOTE | 2016-03-21 09:45 | Event Note ---
He feels better. He denies any pain in his foot or signs of ischemia. He has no numbness weakness or rest pain. His dressing is dry and his foot is warm and soft and nontender. His low-grade temperature appears to be resolved. We will continue antibiotics and wound care.
[2016-03-21] MEDS: oxyCODONE/ACETAMINOPHEN 5-325 MG TABLET PO PRN (13:47)
--- NOTE | 2016-03-21 16:04 | Hospitalist Progress Note ---
Assessment and Plan (1) Peripheral arterial disease Status: Acute Assessment and plan: due to smoking, HTN, IDDM, s/p fem pop bypass Current Visit: Yes (2) Diabetes mellitus Status: Acute Assessment and plan: ISC, continue glyburide and metformin, decrease lantus Current Visit: No (3) Essential (primary) hypertension Status: Acute Assessment and plan: Cont metoprolol to 50 mg p.o. twice daily Current Visit: No (4) Fever Status: Acute Assessment and plan: Blood cultures 2 negative, UA negative, continue vancomycin Current Visit: Yes (5) COPD (chronic obstructive pulmonary disease) Status: Acute Assessment and plan: Stable Current Visit: Yes Exam - Constitutional Vitals: Period Temp Pulse Resp BP Sys/Kennedy Pulse Ox Last 24 Hr 98.4 F-99.5 F 99-124 19-20 97-119/58-89 94-99 Results - Labs CBC & BMP: 03/21/16 03:38 03/18/16 04:01 Lab Results: I have reviewed the past 24 hour labs Labs: UA culture negative and blood cx no growth - Diagnostic Findings Procedure: Chest x-ray: report reviewed by me (no pneumonia ) Quality Measures - VTE Contraindication to Pharmacological VTE Prophylaxis: High Risk of Bleeding
[2016-03-21] MEDS: INSULIN GLARGINE 100 UNIT/ML SUBCUT SCH (22:51)
[2016-03-22] MEDS: INSULIN LISPRO 100 UNIT/ML SUBCUT SCH ×4 (08:57→20:54)
--- NOTE | 2016-03-22 09:16 | Event Note ---
He feels well and denies pain. He is afebrile. His dressings are dry. He has no signs of rest pain.
[2016-03-22] MEDS: NICOTINE 21 MG/24 HR PATCH TRANSDERM SCH (09:29)
[2016-03-22] MEDS: LOVASTATIN 20 MG TABLET PO SCH (09:29)
[2016-03-22] MEDS: GABAPENTIN 100 MG CAPSULE PO SCH ×2 (09:29→20:54)
[2016-03-22] MEDS: MONTELUKAST 10 MG TABLET PO SCH (09:29)
[2016-03-22] MEDS: metFORMIN 500 MG TABLET PO SCH ×2 (09:29→17:53)
[2016-03-22] MEDS: CILOSTAZOL 50 MG TABLET PO SCH (09:29)
[2016-03-22] MEDS: CLOPIDOGREL 75 MG TABLET PO SCH (09:30)
[2016-03-22] MEDS: ASPIRIN CHEW 81 MG TABLET PO SCH (09:30)
[2016-03-22] MEDS: glyBURIDE 5 MG TABLET PO SCH ×2 (09:30→17:53)
[2016-03-22] MEDS: METOPROLOL TARTRATE 50 MG TABLET PO SCH ×2 (09:30→20:54)
[2016-03-22] MEDS: COLLAGENASE OINT 30 GM TUBE TOP SCH (09:30)
[2016-03-22] MEDS: SODIUM HYPOCHLORITE 0.25% IRRIG 473 ML BOTTLE TOP SCH (09:30)
[2016-03-22] MEDS: VANCOMYCIN INJ 1,750 MG in SODIUM CHLORIDE 0.9% 500 ML IV SCH (10:25)
--- NOTE | 2016-03-22 13:15 | Hospitalist Progress Note ---
Assessment and Plan (1) Peripheral arterial disease Status: Acute Assessment and plan: s/p fem pop bypass Current Visit: Yes (2) Diabetes mellitus Status: Acute Assessment and plan: ISC, continue glyburide and metformin and lantus Current Visit: No (3) Essential (primary) hypertension Status: Acute Assessment and plan: Cont metoprolol to 50 mg p.o. twice daily Current Visit: No (4) Fever Status: Acute Assessment and plan: no source keflex for five days then stop Current Visit: Yes (5) COPD (chronic obstructive pulmonary disease) Status: Acute Assessment and plan: Stable Current Visit: Yes Hospitalist: Subjective Interval history: Patient has not been afebrile overnight and from my standpoint can go home. Dr. Wallace will see him in the morning. Exam - Constitutional Vitals: Period Temp Pulse Resp BP Sys/Kennedy Pulse Ox Last 24 Hr 97.5 F-98.8 F 94-103 14-20 88-107/47-64 94-100 Exam: Heart Rate-[regular rate and rhythm] Lungs-[CTAB] GI-[+bs soft, NT] Ext-[no edema] Neuro motor 5 out of 5, alert and oriented 3 psych normal mood and affect general no acute distress Results - Labs CBC & BMP: 03/21/16 03:38 03/18/16 04:01 Lab Results: I have reviewed the past 24 hour labs Labs: Blood cultures and urine culture no growth Quality Measures - VTE Contraindication to Pharmacological VTE Prophylaxis: High Risk of Bleeding
[2016-03-22] MEDS: cephALEXin 500 MG CAPSULE PO SCH ×2 (17:53→23:44)
[2016-03-22] MEDS: INSULIN GLARGINE 100 UNIT/ML SUBCUT SCH (23:45)
[2016-03-23] MEDS: cephALEXin 500 MG CAPSULE PO SCH ×3 (05:39→18:32)
[2016-03-23] MEDS: INSULIN LISPRO 100 UNIT/ML SUBCUT SCH ×4 (08:25→22:28)
[2016-03-23] MEDS: METOPROLOL TARTRATE 50 MG TABLET PO SCH ×2 (09:21→22:26)
[2016-03-23] MEDS: glyBURIDE 5 MG TABLET PO SCH ×2 (09:21→16:43)
[2016-03-23] MEDS: CILOSTAZOL 50 MG TABLET PO SCH (09:21)
[2016-03-23] MEDS: ASPIRIN CHEW 81 MG TABLET PO SCH (09:21)
[2016-03-23] MEDS: GABAPENTIN 100 MG CAPSULE PO SCH ×2 (09:21→22:26)
[2016-03-23] MEDS: CLOPIDOGREL 75 MG TABLET PO SCH (09:21)
[2016-03-23] MEDS: LOVASTATIN 20 MG TABLET PO SCH (09:21)
[2016-03-23] MEDS: metFORMIN 500 MG TABLET PO SCH ×2 (09:21→16:43)
[2016-03-23] MEDS: MONTELUKAST 10 MG TABLET PO SCH (09:22)
[2016-03-23] MEDS: NICOTINE 21 MG/24 HR PATCH TRANSDERM SCH (09:22)
--- NOTE | 2016-03-23 10:40 | Event Note ---
Mr. Velasquez's in general feels much better and has considerably less edema of the incisions look good the open wounds are cleaning up I think we can try wet- to-dry time being we'll see if we can give him a dose of Dalvanc tomorrow to continue his antibiotic coverage and see if we can get him home with home health.
[2016-03-23] MEDS: SODIUM HYPOCHLORITE 0.25% IRRIG 473 ML BOTTLE TOP SCH (19:23)
[2016-03-23] MEDS: COLLAGENASE OINT 30 GM TUBE TOP SCH (19:23)
[2016-03-23] MEDS: oxyCODONE/ACETAMINOPHEN 5-325 MG TABLET PO PRN (22:26)
[2016-03-23] MEDS: INSULIN GLARGINE 100 UNIT/ML SUBCUT SCH (22:27)
[2016-03-24] MEDS: cephALEXin 500 MG CAPSULE PO SCH ×3 (00:47→11:59)
[2016-03-24] MEDS: glyBURIDE 5 MG TABLET PO SCH (09:39)
[2016-03-24] MEDS: GABAPENTIN 100 MG CAPSULE PO SCH (09:39)
[2016-03-24] MEDS: CILOSTAZOL 50 MG TABLET PO SCH (09:39)
[2016-03-24] MEDS: METOPROLOL TARTRATE 50 MG TABLET PO SCH (09:39)
[2016-03-24] MEDS: CLOPIDOGREL 75 MG TABLET PO SCH (09:39)
[2016-03-24] MEDS: ASPIRIN CHEW 81 MG TABLET PO SCH (09:39)
[2016-03-24] MEDS: LOVASTATIN 20 MG TABLET PO SCH (09:39)
[2016-03-24] MEDS: MONTELUKAST 10 MG TABLET PO SCH (09:39)
[2016-03-24] MEDS: metFORMIN 500 MG TABLET PO SCH (09:39)
[2016-03-24] MEDS: NICOTINE 21 MG/24 HR PATCH TRANSDERM SCH (09:41)
[2016-03-24] MEDS: INSULIN LISPRO 100 UNIT/ML SUBCUT SCH ×2 (09:42→11:59)
--- NOTE | 2016-03-24 12:45 | Discharge Summary ---
Hospital Course - Hospital Course Hospital Course: Mr. Estrellita Velasquez 50-year-old man with diabetes and peripheral vascular disease was admitted with arteriography that revealed a complete occlusion of the superficial femoral artery but with reconstitution of the popliteal on 03/17 I performed a left femoral popliteal bypass with in situ saphenous vein and showed improved perfusion of his left lower leg and then marked improvement in his ischemic rest pain he had pre-existing ulcers on the left lower leg that we are now treating more or less with wet-to-dry. There was question of infection these placed on vancomycin which he completed his fifth day to day we will have arranged for him to get a dose of bowel Ros[place] tomorrow as an outpatient home health will follow his wounds his incisions look good and I will see him next week for staple removal be given Percocet for pain he'll continue his normal home medications and has assured me that he will not smoke again when he turns I'll although hasn't that has been an ongoing issue and take care of Mr. Velasquez over the last several years Discharge Plan - Discharge Data Disposition: Home Health Service Condition at Discharge: Stable Discharge Diet: diabetic diet Activity: resume usual activities as tolerated Hygiene: may shower Weight Bearing at Discharge: weight bear as tolerated Driving: not until seen by doctor Contact your physician if you experience:: fever over 101 Wound / Dressing Care Instructions: [facility] has instructions - Discharge Medications New Aspirin Chew Tab 81 mg PO DAILY #60 tablet Nicotine [Nicotrol Ns] 10 mg NS 5X DAILY #14 ml glyBURIDE [Diabeta] 5 mg PO BID W/MEALS tablet metFORMIN [Glucophage] 1,000 mg PO BID W/MEALS tablet Continue Metoprolol Tartrate 100 mg PO DAILY Lovastatin 10 mg PO DAILY W/BREAKFAST Clopidogrel Bisulfate [Clopidogrel] 75 mg PO DAILY Lisinopril 10 mg PO DAILY Insulin Glargine [Lantus] 35 unit SUBCUT 2300 metFORMIN [Glucophage] 850 mg PO TID Cilostazol [Pletal] 50 mg PO DAILY Montelukast Tab [Singulair Tab] 10 mg PO DAILY Gabapentin 100 mg PO BID Albuterol Sulfate [Ventolin HFA] 2 puff INH Q4HR PRN PRN Reason: Shortness Of Breath Discontinued Amlodipine Besylate 10 mg PO DAILY - Follow Up or Referral Follow Up: Kyle Wallace MD [Primary Care Provider] - 1 Week - Forms/Instructions Exam - Constitutional Vitals: Period Temp Pulse Resp BP Sys/Kennedy Pulse Ox Last 24 Hr 97.6 F-99.0 F 90-109 18-20 100-140/56-74 96-99 Discharge Results Procedures and tests throughout hospitalization: Pending Orders 03/19/16 16:10 Blood Culture Stat Labs on day of discharge: Labs from last 24 hours 03/23/16 03/23/16 20:01 16:27 POC Glucose 232 H 175 H Preliminary micro results at discharge 03/19/16 16:10 Blood Culture - Preliminary Blood No growth at 3 days 03/19/16 16:10 Blood Culture - Preliminary Blood No growth at 3 days DS: Provider Date of admission: 03/17/16 12:29 Primary care physician: Kyle Wallace MD Attending physician on admission: Kyle Wallace MD Consults: 03/16/16 16:17 Consult to Physician [CONS] Routine Comment: medical care perioperatively Consulting Provider: Fatemeh Wayne Consult to Specialist Group: Hospitalist Person Notified: Lay Date Notified: 03/16/16 Time Notified: 16:35 03/17/16 14:06 Consult to Pharmacy [CONS] Routine Reason for Pharmacy Consult: Adjust Meds Renal Funct 03/18/16 11:16 Consult to Wound Care - [facility] [CONS] Routine Reason for Wound Care: Wound Care Management 03/18/16 16:03 Consult to Physical Therapy [CONS] Routine Reason for Physical Therapy: Evaluate and Treat Gait Training Start Therapy: Today 03/19/16 15:40 Consult to Pharmacy [CONS] Routine Reason for Pharmacy Consult: Dose/Manage Vancomycin 03/23/16 10:46 Consult to Case Mgmt/Social Srvs [CONS] Routine Reason for Case Mgmt/Social Srvs: Home [facility]fusion [facility] Consult Comment: LLE wd care;Dalvance x1dose 1500mg on wed am at infusion center or home Discharging clinician: Kyle Wallace MD
[2016-03-24 17:05] VITALS: BP 97/58
== END 2016-03-24 14:42 | disposition home health service (06) | DRG 253 ==
LOC: N.RAD 05:53 → N.SDSINP 05:54 → N.3E 11:08
PROVIDERS: ADMIT Surgery; ATTEND Surgery

== ENCOUNTER 2017-10-23 15:49 | Inpatient (IN) ==
[2017-10-23 17:26] LABS: Basophils % 0.5 % (0.0-0.8); Eosinophils # 0.1 10*3/uL (0.0-0.87); Eosinophils % 1.2 % (0.00-10.9); Hematocrit 40.4 VOL% (42.0-52.0); Hemoglobin 12.6 GM/DL (14.0-18.0); Immature Granulocytes % 0.2 %; Immature Granulocytes Absolute 0.02 #; Lymphocytes # 2.3 10*3/uL (1.4-4.0); Lymphocytes % 26.6 % (21.2-54.2); Mean Corpuscular HGB Conc 31.2 GM/DL (32-36); Mean Corpuscular Hemoglobin 27 PG (27-34); Mean Corpuscular Volume 85.1 FL (87-102); Mean Platelet Volume 10.4 FL (9.6-12.0); Monocytes # 0.5 10*3/uL (0.11-0.8); Monocytes % 5.5 % (1.7-12.7); NRBC # 0.04 10*3/uL; Neutrophils # 5.7 10*3/uL (1.4-7.4); Platelet Count 333 T/CUMM (130-400); Red Blood Count 4.75 MC/CUMM (3.8-5.5); Red Cell Distribution Width 20.5 % (9.3-17.3); White Blood Count 8.6 T/CUMM (4-12)
[2017-10-23] MEDS ORDERED: ALBUTEROL/IPRATROPIUM 3 ML NEB RESP TX STA (17:29)
[2017-10-23] MEDS ORDERED: FUROSEMIDE 100 MG/10 ML VIAL IV STA (17:29)
[2017-10-23] MEDS ORDERED: MORPHINE 4 MG/1 ML VIAL IV STA (17:30)
[2017-10-23 18:01] LABS: Albumin 3.8 G/DL (3.4-5.0); Bilirubin,Total 1.1 MG/DL (0.2-1.0); Calcium 8.9 MG/DL (8.5-10.1); Osmolality,Calculated 279.4 MOS/KG (273-304); Total Protein 7.6 G/DL (6.4-8.3)
[2017-10-23] MEDS ORDERED: methylPREDNISolone SOD SUC 125 MG/2 ML VIAL IV STA (18:17)
[2017-10-23 19:19] LABS: Barbiturates Screen,Urine Negative (Negative); Benzodiazepines Screen,Urine Negative (Negative); Cannabinoid Screen,Urine Negative (Negative); Opiate Screen,Urine Negative (Negative); Phencyclidine Screen,Urine Negative (Negative)
[2017-10-23] MEDS ORDERED: ONDANSETRON 4 MG/2 ML VIAL IV PRN (20:13)
[2017-10-23] MEDS ORDERED: ZALEPLON 5 MG CAPSULE PO PRN (20:13)
[2017-10-23] MEDS ORDERED: DEXTROSE 50% 25 GM/50 ML VIAL IV PRN (20:13)
[2017-10-23] MEDS ORDERED: LACTULOSE 20 GM/30 ML UDCUP PO PRN (20:13)
[2017-10-23] MEDS ORDERED: ACETAMINOPHEN 325 MG TABLET PO PRN (20:13)
[2017-10-23] MEDS ORDERED: ALBUTEROL 2.5 MG/3 ML NEB RESP TX PRN (20:13)
[2017-10-23] MEDS ORDERED: GLUCAGON 1 MG VIAL IM PRN (20:13)
[2017-10-23] MEDS: ALBUTEROL/IPRATROPIUM 3 ML NEB RESP TX SCH (21:10)
[2017-10-23 21:14] LABS: Allen Test Positive
[2017-10-23 21:15] LABS: ABG Base Excess -2.2 MMOL/L (-2.5-2.5); ABG HCO3 21.2 MMOL/L (20-26); ABG Oxygen Saturation 93.3 % (95-100); ABG PCO2 32.6 MM HG (35-48); ABG PH 7.432 (7.35-7.45); ABG PO2 71.2 MM HG (80-95); ABG TCO2 22.3 MMOL/L (23-27)
[2017-10-23 21:44] LABS: Apearance,Urine CLEAR (Clear); Bacteria,Urine Occasional /HPF (Few); Bilirubin,Urine Negative (Negative); Blood, Urine Large mg/dL (Negative); Glucose,Urine (UA) Negative (Negative); Ketones,Urine Negative (Negative); Mucus,Urine Occasional /LPF (Occasional); Nitrite,Urine Negative (Negative); Protein,Urine 30 MG/DL; RBC,Urine 543 /HPF (0-4); Urine Color Straw (Yellow); Urine Specific Gravity 1.006 (1.001-1.035); Urine Urobilinogen < 2.0 EU/DL (0.2-1.0); WBC,Urine 6 /HPF (0-6)
[2017-10-23 21:58] LABS: Lactic Acid 1.6 MMOL/L (0.4-2.0)
[2017-10-23 22:05] LABS: Thyroid Stimulating Hormone 1.14 uIU/ml (0.358-3.74)
[2017-10-23] MEDS: MONTELUKAST 10 MG TABLET PO SCH (22:43)
[2017-10-23] MEDS: SPIRONOLACTONE 50 MG TABLET PO SCH (22:43)
[2017-10-23] MEDS: LEVOFLOXACIN INJ 750 MG in PREMIX 1 EACH IV SCH (22:44)
[2017-10-23] MEDS: INSULIN LISPRO 100 UNIT/ML SUBCUT SCH (22:44)
[2017-10-23] MEDS: INSULIN GLARGINE 100 UNIT/ML SUBCUT SCH (22:44)
[2017-10-23] MEDS: FAMOTIDINE 20 MG/2 ML VIAL IV SCH (22:49)
[2017-10-24] MEDS: methylPREDNISolone SOD SUC 125 MG/2 ML VIAL IV SCH ×5 (01:02→20:58)
[2017-10-24] MEDS: FUROSEMIDE 40 MG/4 ML VIAL IV SCH ×3 (01:02→15:44)
[2017-10-24] MEDS: ALBUTEROL/IPRATROPIUM 3 ML NEB RESP TX SCH ×4 (01:35→19:15)
[2017-10-24 03:49] LABS: Basophils % 0.2 % (0.0-0.8); Hematocrit 40.5 VOL% (42.0-52.0); Hemoglobin 12.4 GM/DL (14.0-18.0); Immature Granulocytes % 0.5 %; Immature Granulocytes Absolute 0.05 #; Lymphocytes # 0.8 10*3/uL (1.4-4.0); Lymphocytes % 8.1 % (21.2-54.2); Mean Corpuscular HGB Conc 30.6 GM/DL (32-36); Mean Corpuscular Hemoglobin 26 PG (27-34); Mean Corpuscular Volume 84.7 FL (87-102); Mean Platelet Volume 10.7 FL (9.6-12.0); Monocytes # 0.1 10*3/uL (0.11-0.8); Monocytes % 0.8 % (1.7-12.7); Neutrophils % 90.4 % (38.7-73.9); Platelet Count 346 T/CUMM (130-400); Red Blood Count 4.78 MC/CUMM (3.8-5.5); Red Cell Distribution Width 20.1 % (9.3-17.3); White Blood Count 9.9 T/CUMM (4-12)
[2017-10-24 04:08] LABS: Albumin 3.7 G/DL (3.4-5.0); Bilirubin,Total 1.4 MG/DL (0.2-1.0); Calcium 8.6 MG/DL (8.5-10.1); Osmolality,Calculated 282.8 MOS/KG (273-304); Potassium 3.7 MMOL/L (3.5-5.1); Risk Ratio 3.63; Total Protein 7.9 G/DL (6.4-8.3); VLDL CHOLESTEROL 10.8 MG/DL
[2017-10-24] MEDS: sitaGLIPtin 100 MG TABLET PO SCH (08:07)
[2017-10-24] MEDS: CLOPIDOGREL 75 MG TABLET PO SCH (08:07)
[2017-10-24] MEDS: FAMOTIDINE 20 MG/2 ML VIAL IV SCH ×2 (08:07→21:01)
[2017-10-24] MEDS: SPIRONOLACTONE 50 MG TABLET PO SCH (08:07)
[2017-10-24] MEDS: PANTOPRAZOLE 40 MG TABLET PO SCH (08:07)
[2017-10-24] MEDS: POTASSIUM CHLORIDE 20 MEQ TABLET PO SCH (08:07)
[2017-10-24] MEDS: ATORVASTATIN 20 MG TABLET PO SCH (08:07)
[2017-10-24] MEDS: METOPROLOL SUCCINATE XL 100 MG TABLET PO SCH (08:07)
[2017-10-24] MEDS: ASPIRIN CHEW 81 MG TABLET PO SCH (08:07)
[2017-10-24] MEDS: INSULIN LISPRO 100 UNIT/ML SUBCUT SCH ×4 (08:07→20:58)
[2017-10-24] MEDS: NICOTINE 21 MG/24 HR PATCH TRANSDERM SCH (08:08)
[2017-10-24] MEDS: ENOXAPARIN 40 MG/0.4 ML SYRINGE SUBCUT SCH (08:08)
[2017-10-24] MEDS: INSULIN GLARGINE 100 UNIT/ML SUBCUT SCH ×2 (15:44→20:59)
[2017-10-24] MEDS: LEVOFLOXACIN INJ 750 MG in PREMIX 1 EACH IV SCH (20:59)
[2017-10-24] MEDS: MONTELUKAST 10 MG TABLET PO SCH (20:59)
[2017-10-25] MEDS: ALBUTEROL/IPRATROPIUM 3 ML NEB RESP TX SCH ×4 (00:42→19:00)
[2017-10-25] MEDS: methylPREDNISolone SOD SUC 125 MG/2 ML VIAL IV SCH ×3 (02:24→16:25)
[2017-10-25] MEDS: FUROSEMIDE 40 MG/4 ML VIAL IV SCH ×2 (02:24→14:04)
[2017-10-25 04:08] LABS: Basophils % 0.1 % (0.0-0.8); Hematocrit 37.7 VOL% (42.0-52.0); Hemoglobin 11.8 GM/DL (14.0-18.0); Immature Granulocytes % 0.6 %; Immature Granulocytes Absolute 0.09 #; Lymphocytes % 6.1 % (21.2-54.2); Mean Corpuscular HGB Conc 31.3 GM/DL (32-36); Mean Corpuscular Hemoglobin 26 PG (27-34); Mean Corpuscular Volume 82.5 FL (87-102); Mean Platelet Volume 11.6 FL (9.6-12.0); Monocytes # 0.8 10*3/uL (0.11-0.8); Monocytes % 5.3 % (1.7-12.7); NRBC # 0.02 10*3/uL; Neutrophils # 13.9 10*3/uL (1.4-7.4); Neutrophils % 87.9 % (38.7-73.9); Platelet Count 361 T/CUMM (130-400); Red Blood Count 4.57 MC/CUMM (3.8-5.5); White Blood Count 15.8 T/CUMM (4-12)
[2017-10-25 04:51] LABS: Albumin 3.5 G/DL (3.4-5.0); Bilirubin,Total 0.7 MG/DL (0.2-1.0); Calcium 8.9 MG/DL (8.5-10.1); Osmolality,Calculated 292.5 MOS/KG (273-304); Potassium 3.6 MMOL/L (3.5-5.1); Total Protein 7.3 G/DL (6.4-8.3)
[2017-10-25] MEDS: INSULIN GLARGINE 100 UNIT/ML SUBCUT SCH ×2 (08:27→21:16)
[2017-10-25] MEDS: INSULIN LISPRO 100 UNIT/ML SUBCUT SCH ×4 (08:28→21:15)
[2017-10-25] MEDS: NICOTINE 21 MG/24 HR PATCH TRANSDERM SCH (08:29)
[2017-10-25] MEDS: FAMOTIDINE 20 MG/2 ML VIAL IV SCH ×2 (08:29→21:16)
[2017-10-25] MEDS: ENOXAPARIN 40 MG/0.4 ML SYRINGE SUBCUT SCH (08:30)
[2017-10-25] MEDS: SPIRONOLACTONE 50 MG TABLET PO SCH (08:30)
[2017-10-25] MEDS: METOPROLOL SUCCINATE XL 100 MG TABLET PO SCH (08:30)
[2017-10-25] MEDS: ATORVASTATIN 20 MG TABLET PO SCH (08:30)
[2017-10-25] MEDS: POTASSIUM CHLORIDE 20 MEQ TABLET PO SCH (08:30)
[2017-10-25] MEDS: PANTOPRAZOLE 40 MG TABLET PO SCH (08:30)
[2017-10-25] MEDS: ASPIRIN CHEW 81 MG TABLET PO SCH (08:30)
[2017-10-25] MEDS: CLOPIDOGREL 75 MG TABLET PO SCH (08:30)
[2017-10-25] MEDS: sitaGLIPtin 100 MG TABLET PO SCH (08:30)
[2017-10-25] MEDS: LEVOFLOXACIN 750 MG TABLET PO SCH (10:42)
[2017-10-25] MEDS ORDERED: MAGNESIUM SULF RIDER 2 GM in PREMIX 1 EACH IV PRN (17:13)
[2017-10-25] MEDS ORDERED: POTASSIUM CHLORIDE RIDER 10 MEQ in PREMIX 1 EACH IV PRN (17:13)
[2017-10-25] MEDS: MONTELUKAST 10 MG TABLET PO SCH (21:16)
[2017-10-26] MEDS: ALBUTEROL/IPRATROPIUM 3 ML NEB RESP TX SCH ×4 (00:30→20:05)
[2017-10-26] MEDS: FUROSEMIDE 40 MG/4 ML VIAL IV SCH ×2 (02:09→14:05)
[2017-10-26] MEDS: methylPREDNISolone SOD SUC 125 MG/2 ML VIAL IV SCH (02:12)
[2017-10-26 05:22] LABS: Basophils % 0.1 % (0.0-0.8); Hematocrit 41.1 VOL% (42.0-52.0); Hemoglobin 13.2 GM/DL (14.0-18.0); Immature Granulocytes % 0.7 %; Immature Granulocytes Absolute 0.12 #; Lymphocytes # 1.2 10*3/uL (1.4-4.0); Lymphocytes % 6.6 % (21.2-54.2); Mean Corpuscular HGB Conc 32.1 GM/DL (32-36); Mean Corpuscular Hemoglobin 26 PG (27-34); Mean Corpuscular Volume 81.2 FL (87-102); Monocytes # 0.9 10*3/uL (0.11-0.8); Monocytes % 4.8 % (1.7-12.7); NRBC # 0.03 10*3/uL; Neutrophils # 15.9 10*3/uL (1.4-7.4); Neutrophils % 87.8 % (38.7-73.9); Platelet Count 414 T/CUMM (130-400); Red Blood Count 5.06 MC/CUMM (3.8-5.5); White Blood Count 18.1 T/CUMM (4-12)
[2017-10-26 05:41] LABS: Albumin 3.7 G/DL (3.4-5.0); Bilirubin,Total 0.9 MG/DL (0.2-1.0); Calcium 8.9 MG/DL (8.5-10.1); Osmolality,Calculated 285.7 MOS/KG (273-304); Potassium 3.7 MMOL/L (3.5-5.1); Total Protein 7.7 G/DL (6.4-8.3)
[2017-10-26] MEDS ORDERED: DIAZEPAM 5 MG TABLET PO ONE (09:00)
[2017-10-26] MEDS ORDERED: diphenhydrAMINE CAP 25 MG CAPSULE PO ONE (09:00)
[2017-10-26] MEDS: INSULIN LISPRO 100 UNIT/ML SUBCUT SCH ×4 (09:55→21:15)
[2017-10-26] MEDS: CLOPIDOGREL 75 MG TABLET PO SCH (09:56)
[2017-10-26] MEDS: ENOXAPARIN 40 MG/0.4 ML SYRINGE SUBCUT SCH (09:57)
[2017-10-26] MEDS: ASPIRIN CHEW 81 MG TABLET PO SCH (09:57)
[2017-10-26] MEDS: SPIRONOLACTONE 50 MG TABLET PO SCH (09:57)
[2017-10-26] MEDS: sitaGLIPtin 100 MG TABLET PO SCH (09:57)
[2017-10-26] MEDS: INSULIN GLARGINE 100 UNIT/ML SUBCUT SCH ×2 (09:57→21:15)
[2017-10-26] MEDS: PANTOPRAZOLE 40 MG TABLET PO SCH (09:57)
[2017-10-26] MEDS: ATORVASTATIN 20 MG TABLET PO SCH (09:57)
[2017-10-26] MEDS: METOPROLOL SUCCINATE XL 100 MG TABLET PO SCH (09:57)
[2017-10-26] MEDS: POTASSIUM CHLORIDE 20 MEQ TABLET PO SCH (09:57)
[2017-10-26] MEDS: LEVOFLOXACIN 750 MG TABLET PO SCH (09:57)
[2017-10-26] MEDS: FAMOTIDINE 20 MG/2 ML VIAL IV SCH ×2 (09:58→21:16)
[2017-10-26] MEDS: NICOTINE 21 MG/24 HR PATCH TRANSDERM SCH (09:58)
[2017-10-26] MEDS ORDERED: LIDOCAINE 1% 20 ML VIAL ONE (15:25)
[2017-10-26] MEDS ORDERED: HYDROmorphone 2 MG/1 ML VIAL ONE (15:40)
[2017-10-26] MEDS ORDERED: MIDAZOLAM 2 MG/2 ML VIAL ONE (15:41)
[2017-10-26] MEDS ORDERED: NITROGLYCERIN DRIP 50 MG/250 ML BOTTLE IV ONE (15:45)
[2017-10-26] MEDS ORDERED: VERAPAMIL 5 MG/2 ML VIAL ONE (15:45)
[2017-10-26] MEDS ORDERED: ENOXAPARIN 60 MG/0.6 ML SYRINGE ONE ×4 (15:54→17:08)
[2017-10-26] MEDS ORDERED: CLOPIDOGREL 300 MG TABLET ONE (17:25)
[2017-10-26] MEDS ORDERED: HYDROmorphone 2 MG/1 ML VIAL IV PRN (17:26)
[2017-10-26] MEDS: MONTELUKAST 10 MG TABLET PO SCH (21:17)
[2017-10-27 04:26] LABS: Basophils % 0.1 % (0.0-0.8); Eosinophils % 0.2 % (0.00-10.9); Hematocrit 42.4 VOL% (42.0-52.0); Hemoglobin 13.1 GM/DL (14.0-18.0); Immature Granulocytes % 0.4 %; Immature Granulocytes Absolute 0.07 #; Lymphocytes # 4.6 10*3/uL (1.4-4.0); Lymphocytes % 27.7 % (21.2-54.2); Mean Corpuscular HGB Conc 30.9 GM/DL (32-36); Mean Corpuscular Hemoglobin 26 PG (27-34); Mean Platelet Volume 11.1 FL (9.6-12.0); Monocytes # 1.5 10*3/uL (0.11-0.8); Monocytes % 9.1 % (1.7-12.7); NRBC # 0.03 10*3/uL; Neutrophils # 10.4 10*3/uL (1.4-7.4); Neutrophils % 62.5 % (38.7-73.9); Platelet Count 389 T/CUMM (130-400); Red Blood Count 5.05 MC/CUMM (3.8-5.5); Red Cell Distribution Width 19.9 % (9.3-17.3); White Blood Count 16.6 T/CUMM (4-12)
[2017-10-27 05:01] LABS: Calcium 8.7 MG/DL (8.5-10.1); Osmolality,Calculated 280.7 MOS/KG (273-304); Potassium 3.5 MMOL/L (3.5-5.1)
[2017-10-27] MEDS: FUROSEMIDE 40 MG/4 ML VIAL IV SCH (06:24)
[2017-10-27] MEDS: ALBUTEROL/IPRATROPIUM 3 ML NEB RESP TX SCH ×3 (06:46→18:59)
[2017-10-27] MEDS: INSULIN LISPRO 100 UNIT/ML SUBCUT SCH ×4 (08:43→22:00)
[2017-10-27] MEDS ORDERED: predniSONE 20 MG TABLET PO SCH ×2 (09:00→10:21)
[2017-10-27] MEDS ORDERED: ASPIRIN EC 81 MG TABLET PO SCH (09:00)
[2017-10-27] MEDS: METOPROLOL SUCCINATE XL 100 MG TABLET PO SCH (10:00)
[2017-10-27] MEDS: ENOXAPARIN 40 MG/0.4 ML SYRINGE SUBCUT SCH (10:02)
[2017-10-27] MEDS: NICOTINE 21 MG/24 HR PATCH TRANSDERM SCH (10:02)
[2017-10-27] MEDS: PANTOPRAZOLE 40 MG TABLET PO SCH (10:04)
[2017-10-27] MEDS: LEVOFLOXACIN 750 MG TABLET PO SCH (10:04)
[2017-10-27] MEDS: CLOPIDOGREL 75 MG TABLET PO SCH (10:04)
[2017-10-27] MEDS: POTASSIUM CHLORIDE 20 MEQ TABLET PO SCH (10:04)
[2017-10-27] MEDS: ASPIRIN CHEW 81 MG TABLET PO SCH (10:05)
[2017-10-27] MEDS: sitaGLIPtin 100 MG TABLET PO SCH (10:05)
[2017-10-27] MEDS: FAMOTIDINE 20 MG/2 ML VIAL IV SCH ×2 (10:14→21:59)
[2017-10-27] MEDS: ROSUVASTATIN 20 MG TABLET PO SCH (10:14)
[2017-10-27] MEDS: INSULIN GLARGINE 100 UNIT/ML SUBCUT SCH ×2 (10:15→22:00)
[2017-10-27] MEDS: ATORVASTATIN 20 MG TABLET PO SCH (10:22)
[2017-10-27] MEDS ORDERED: SODIUM CHLORIDE 0.9% 500 ML IV ONE (15:25)
[2017-10-27] MEDS: MONTELUKAST 10 MG TABLET PO SCH (21:59)
[2017-10-28] MEDS: ALBUTEROL/IPRATROPIUM 3 ML NEB RESP TX SCH ×3 (00:51→14:18)
[2017-10-28 05:55] LABS: Calcium 9.1 MG/DL (8.5-10.1); Osmolality,Calculated 282.8 MOS/KG (273-304); Potassium 3.8 MMOL/L (3.5-5.1)
[2017-10-28] MEDS ORDERED: LOSARTAN 25 MG TABLET PO SCH (09:30)
[2017-10-28] MEDS: sitaGLIPtin 100 MG TABLET PO SCH (10:14)
[2017-10-28] MEDS: ROSUVASTATIN 20 MG TABLET PO SCH (10:14)
[2017-10-28] MEDS: ASPIRIN CHEW 81 MG TABLET PO SCH (10:14)
[2017-10-28] MEDS: CLOPIDOGREL 75 MG TABLET PO SCH (10:14)
[2017-10-28] MEDS: INSULIN GLARGINE 100 UNIT/ML SUBCUT SCH (10:14)
[2017-10-28] MEDS: PANTOPRAZOLE 40 MG TABLET PO SCH (10:15)
[2017-10-28] MEDS: POTASSIUM CHLORIDE 20 MEQ TABLET PO SCH (10:15)
[2017-10-28] MEDS: INSULIN LISPRO 100 UNIT/ML SUBCUT SCH ×2 (10:15→13:24)
[2017-10-28] MEDS: LEVOFLOXACIN 750 MG TABLET PO SCH (10:15)
[2017-10-28] MEDS: NICOTINE 21 MG/24 HR PATCH TRANSDERM SCH (10:16)
[2017-10-28] MEDS: ENOXAPARIN 40 MG/0.4 ML SYRINGE SUBCUT SCH (10:16)
[2017-10-28] MEDS: FAMOTIDINE 20 MG/2 ML VIAL IV SCH (10:17)
[2017-10-28 11:26] VITALS: BP 110/71
== END 2017-10-28 14:32 | disposition home or self-care (01) | DRG 246 ==
LOC: N.ED 15:49 → N.EDINP 18:27 → SUATTDRO 18:27 → N.CC 19:23 → N.5E 10-25 16:42 → N.TELES 10-26 18:04
PROVIDERS: ADMIT Internal Medicine; ATTEND Internal Medicine
PROC: CLCCHCL (ICD-10-PCS; 2017-10-26 14:45)

== ENCOUNTER 2018-11-23 20:36 | Inpatient (IN) ==
[2018-11-23] MEDS ORDERED: LACTATED RINGERS 500 ML IV ONE (21:15)
[2018-11-23 21:18] LABS: Basophils # 0.1 10*3/uL (0.0-0.2); Basophils % 0.4 % (0.0-0.8); Immature Granulocytes % 3.5 %; Immature Granulocytes Absolute 0.67 #; Lymphocytes # 0.7 10*3/uL (1.4-4.0); Lymphocytes % 3.6 % (21.2-54.2); Mean Corpuscular HGB Conc 32.6 GM/DL (32-36); Mean Corpuscular Volume 84.9 FL (87-102); Mean Platelet Volume 10.1 FL (9.6-12.0); Neutrophils % 86.5 % (38.7-73.9); Platelet Count 222 T/CUMM (130-400); Red Blood Count 5.42 MC/CUMM (3.8-5.5); Red Cell Distribution Width 16.2 % (9.3-17.3); White Blood Count 19.1 T/CUMM (4-12)
[2018-11-23 21:29] LABS: PT Patient Result 10.9 SECS (9.6-12.2)
[2018-11-23 21:38] LABS: Calcium 8.8 MG/DL (8.5-10.1)
[2018-11-23 21:39] LABS: Band Neutrophils 4 % (0-10); Lymphocytes 10 % (20-55); Platelet Estimate Normal; Segmented Neutrophils 82 % (50-85); Total Cells Counted 100
[2018-11-23] MEDS ORDERED: LACTATED RINGERS 2,000 ML IV ONE (21:47)
[2018-11-23] MEDS ORDERED: cefTRIAXone 1,000 MG in SODIUM CHLORIDE 0.9% 100 ML IV STA (21:48)
[2018-11-23 22:37] LABS: Apearance,Urine Slightly Hazy (Clear); Bacteria,Urine Many /HPF (Few); Bilirubin,Urine Negative (Negative); Blood, Urine Moderate mg/dL (Negative); Glucose,Urine (UA) Negative (Negative); Hyaline Casts,Urine 3 /LPF (0-3); Ketones,Urine Negative (Negative); Mucus,Urine Few /LPF (Occasional); Nitrite,Urine Negative (Negative); Protein,Urine 30 MG/DL; RBC,Urine 19 /HPF (0-4); Squamous Epithelial Cell,Urine Occasional /HPF (0-10); Urine Color Amber (Yellow); Urine Specific Gravity 1.016 (1.001-1.035); WBC,Urine 16 /HPF (0-6)
[2018-11-23] MEDS ORDERED: ONDANSETRON 4 MG/2 ML VIAL IV PRN (23:39)
[2018-11-23] MEDS ORDERED: GLUCAGON 1 MG VIAL IM PRN (23:39)
[2018-11-23] MEDS ORDERED: DEXTROSE 50% 25 GM/50 ML VIAL IV PRN ×2 (23:39)
[2018-11-23] MEDS ORDERED: ALBUTEROL 2.5 MG/3 ML NEB RESP TX PRN (23:39)
[2018-11-23] MEDS ORDERED: NOREPINEPHRINE 8 MG in SODIUM CHLORIDE 0.9% 242 ML IV PRN (23:44)
[2018-11-24] MEDS: PIPERACILLIN/TAZOBACTAM 3,375 MG in SODIUM CHLORIDE 0.9% 100 ML IV SCH ×3 (00:15→15:21)
[2018-11-24] MEDS: ENOXAPARIN 40 MG/0.4 ML SYRINGE SUBCUT SCH (00:54)
[2018-11-24] MEDS ORDERED: ACETAMINOPHEN 325 MG TABLET PO PRN (01:02)
[2018-11-24] MEDS: SODIUM CHLORIDE 0.9% 1,000 ML IV SCH ×2 (01:21→15:21)
[2018-11-24] MEDS: VANCOMYCIN INJ 1,500 MG in SODIUM CHLORIDE 0.9% 500 ML IV SCH ×2 (05:15→17:26)
[2018-11-24 07:58] LABS: Basophils # 0.1 10*3/uL (0.0-0.2); Basophils % 0.4 % (0.0-0.8); Eosinophils % 0.1 % (0.00-10.9); Hematocrit 39.9 VOL% (42.0-52.0); Hemoglobin 12.9 GM/DL (14.0-18.0); Immature Granulocytes % 0.8 %; Immature Granulocytes Absolute 0.17 #; Lymphocytes % 9.1 % (21.2-54.2); Mean Corpuscular HGB Conc 32.3 GM/DL (32-36); Mean Corpuscular Volume 84.9 FL (87-102); Mean Platelet Volume 10.6 FL (9.6-12.0); Monocytes % 8.6 % (1.7-12.7); Platelet Count 209 T/CUMM (130-400); Red Cell Distribution Width 16.2 % (9.3-17.3); White Blood Count 21.6 T/CUMM (4-12)
[2018-11-24 08:14] LABS: Albumin 2.6 G/DL (3.4-5.0); Bilirubin,Total 0.5 MG/DL (0.2-1.0); Calcium 8.7 MG/DL (8.5-10.1); Osmolality,Calculated 284.8 MOS/KG (273-304); Total Protein 5.9 G/DL (6.4-8.3)
[2018-11-24 08:20] LABS: Band Neutrophils 5 % (0-10); Hypochromasia 1+; Lymphocytes 6 % (20-55); Platelet Estimate Adequate; Segmented Neutrophils 79 % (50-85); Total Cells Counted 100
[2018-11-24] MEDS: INSULIN REGULAR 100 UNIT/ML SUBCUT SCH ×4 (09:09→21:03)
[2018-11-24] MEDS: PANTOPRAZOLE 40 MG TABLET PO SCH (09:11)
[2018-11-24] MEDS: INSULIN GLARGINE 100 UNIT/ML SUBCUT SCH (21:03)
[2018-11-25] MEDS: PIPERACILLIN/TAZOBACTAM 3,375 MG in SODIUM CHLORIDE 0.9% 100 ML IV SCH ×4 (00:09→23:58)
[2018-11-25] MEDS: ENOXAPARIN 40 MG/0.4 ML SYRINGE SUBCUT SCH ×2 (00:09→23:58)
[2018-11-25] MEDS: VANCOMYCIN INJ 1,500 MG in SODIUM CHLORIDE 0.9% 500 ML IV SCH (05:00)
[2018-11-25] MEDS: SODIUM CHLORIDE 0.9% 1,000 ML IV SCH (05:01)
[2018-11-25 05:28] LABS: Basophils # 0.1 10*3/uL (0.0-0.2); Basophils % 0.4 % (0.0-0.8); Eosinophils # 0.1 10*3/uL (0.0-0.87); Eosinophils % 0.4 % (0.00-10.9); Hematocrit 40.4 VOL% (42.0-52.0); Hemoglobin 13.1 GM/DL (14.0-18.0); Immature Granulocytes % 0.7 %; Immature Granulocytes Absolute 0.12 #; Lymphocytes # 2.7 10*3/uL (1.4-4.0); Lymphocytes % 16.6 % (21.2-54.2); Mean Corpuscular HGB Conc 32.4 GM/DL (32-36); Mean Corpuscular Volume 85.4 FL (87-102); Mean Platelet Volume 10.8 FL (9.6-12.0); Monocytes % 10.6 % (1.7-12.7); Neutrophils % 71.3 % (38.7-73.9); Platelet Count 216 T/CUMM (130-400); Red Blood Count 4.73 MC/CUMM (3.8-5.5); Red Cell Distribution Width 16.4 % (9.3-17.3); White Blood Count 16.3 T/CUMM (4-12)
[2018-11-25 05:55] LABS: Alanine Aminotransferase 19 U/L (16-61); Albumin 2.4 G/DL (3.4-5.0); Alkaline Phosphatase 73 U/L (45-117); Aspartate Amino Transferase 15 U/L (0-37); Bilirubin,Total < 0.39 MG/DL (0.2-1.0); Blood Urea Nitrogen 9 MG/DL (7-18); Estimated Glom Filtration Rate 147 ML/MIN; Glucose 174 MG/DL (74-106); Osmolality,Calculated 283.3 MOS/KG (273-304); Total Protein 5.5 G/DL (6.4-8.3)
[2018-11-25] MEDS: ATORVASTATIN 40 MG TABLET PO SCH (08:11)
[2018-11-25] MEDS: INSULIN REGULAR 100 UNIT/ML SUBCUT SCH ×4 (08:11→20:54)
[2018-11-25] MEDS: CLOPIDOGREL 75 MG TABLET PO SCH (08:11)
[2018-11-25] MEDS: PANTOPRAZOLE 40 MG TABLET PO SCH (08:11)
[2018-11-25] MEDS: ASPIRIN CHEW 81 MG TABLET PO SCH (09:07)
[2018-11-25] MEDS ORDERED: METOPROLOL TARTRATE 25 MG TABLET PO SCH (13:00)
[2018-11-25] MEDS: INSULIN GLARGINE 100 UNIT/ML SUBCUT SCH (20:53)
[2018-11-25] MEDS: SACUBITRIL/VALSARTAN 49-51 MG TABLET PO SCH (20:54)
[2018-11-25] MEDS: METOPROLOL SUCCINATE XL 25 MG TABLET PO SCH (20:54)
[2018-11-26 04:54] LABS: Basophils % 0.3 % (0.0-0.8); Eosinophils # 0.1 10*3/uL (0.0-0.87); Eosinophils % 0.7 % (0.00-10.9); Hematocrit 40.8 VOL% (42.0-52.0); Hemoglobin 13.1 GM/DL (14.0-18.0); Immature Granulocytes % 0.6 %; Immature Granulocytes Absolute 0.07 #; Lymphocytes # 3.8 10*3/uL (1.4-4.0); Lymphocytes % 30.7 % (21.2-54.2); Mean Corpuscular HGB Conc 32.1 GM/DL (32-36); Mean Corpuscular Volume 84.6 FL (87-102); Mean Platelet Volume 10.7 FL (9.6-12.0); Monocytes % 11.3 % (1.7-12.7); Neutrophils % 56.4 % (38.7-73.9); Platelet Count 264 T/CUMM (130-400); Red Blood Count 4.82 MC/CUMM (3.8-5.5); Red Cell Distribution Width 16.8 % (9.3-17.3); White Blood Count 12.4 T/CUMM (4-12)
[2018-11-26 05:24] LABS: Calcium 8.5 MG/DL (8.5-10.1)
[2018-11-26] MEDS: INSULIN REGULAR 100 UNIT/ML SUBCUT SCH ×4 (08:53→20:45)
[2018-11-26] MEDS: PIPERACILLIN/TAZOBACTAM 3,375 MG in SODIUM CHLORIDE 0.9% 100 ML IV SCH ×3 (08:56→23:42)
[2018-11-26] MEDS: ASPIRIN CHEW 81 MG TABLET PO SCH (08:57)
[2018-11-26] MEDS: PANTOPRAZOLE 40 MG TABLET PO SCH (08:57)
[2018-11-26] MEDS: METOPROLOL SUCCINATE XL 25 MG TABLET PO SCH ×2 (08:57→20:46)
[2018-11-26] MEDS: ATORVASTATIN 40 MG TABLET PO SCH (08:57)
[2018-11-26] MEDS: CLOPIDOGREL 75 MG TABLET PO SCH (08:57)
[2018-11-26] MEDS: SACUBITRIL/VALSARTAN 49-51 MG TABLET PO SCH ×2 (08:57→20:46)
[2018-11-26] MEDS: POTASSIUM CHLORIDE 20 MEQ TABLET PO SCH (09:35)
[2018-11-26] MEDS: INSULIN GLARGINE 100 UNIT/ML SUBCUT SCH (20:46)
[2018-11-26] MEDS: ENOXAPARIN 40 MG/0.4 ML SYRINGE SUBCUT SCH (23:42)
[2018-11-27 06:05] LABS: Basophils % 0.5 % (0.0-0.8); Eosinophils # 0.1 10*3/uL (0.0-0.87); Hematocrit 42.5 VOL% (42.0-52.0); Hemoglobin 13.4 GM/DL (14.0-18.0); Immature Granulocytes % 1.5 %; Immature Granulocytes Absolute 0.12 #; Lymphocytes % 37.1 % (21.2-54.2); Mean Corpuscular HGB Conc 31.5 GM/DL (32-36); Mean Corpuscular Volume 84.3 FL (87-102); Mean Platelet Volume 10.5 FL (9.6-12.0); Neutrophils % 49.9 % (38.7-73.9); Platelet Count 269 T/CUMM (130-400); Red Blood Count 5.04 MC/CUMM (3.8-5.5); Red Cell Distribution Width 16.8 % (9.3-17.3); White Blood Count 8.1 T/CUMM (4-12)
[2018-11-27 06:27] LABS: Band Neutrophils 1 % (0-10); Eosinophils 2 % (0-10); Lymphocytes 35 % (20-55); Segmented Neutrophils 51 % (50-85); Total Cells Counted 100
[2018-11-27 06:28] LABS: Anisocytosis 1+; Ovalocytes 1+; Target Cells 1+
[2018-11-27 06:29] LABS: Alanine Aminotransferase 22 U/L (16-61); Albumin 2.6 G/DL (3.4-5.0); Alkaline Phosphatase 71 U/L (45-117); Aspartate Amino Transferase 10 U/L (0-37); Bilirubin,Total < 0.39 MG/DL (0.2-1.0); Blood Urea Nitrogen 7 MG/DL (7-18); Calcium 8.6 MG/DL (8.5-10.1); Estimated Glom Filtration Rate 134 ML/MIN; Glucose 176 MG/DL (74-106); Osmolality,Calculated 287.8 MOS/KG (273-304); Platelet Estimate Normal; Total Protein 6.1 G/DL (6.4-8.3)
[2018-11-27] MEDS: ATORVASTATIN 40 MG TABLET PO SCH (09:00)
[2018-11-27] MEDS: ASPIRIN CHEW 81 MG TABLET PO SCH (09:00)
[2018-11-27] MEDS: METOPROLOL SUCCINATE XL 25 MG TABLET PO SCH ×2 (09:00→20:38)
[2018-11-27] MEDS: CLOPIDOGREL 75 MG TABLET PO SCH (09:00)
[2018-11-27] MEDS: SACUBITRIL/VALSARTAN 49-51 MG TABLET PO SCH ×2 (09:00→20:38)
[2018-11-27] MEDS: INSULIN REGULAR 100 UNIT/ML SUBCUT SCH ×4 (09:01→20:39)
[2018-11-27] MEDS: POTASSIUM CHLORIDE 20 MEQ TABLET PO SCH (09:01)
[2018-11-27] MEDS: PIPERACILLIN/TAZOBACTAM 3,375 MG in SODIUM CHLORIDE 0.9% 100 ML IV SCH ×3 (09:01→23:34)
[2018-11-27] MEDS: PANTOPRAZOLE 40 MG TABLET PO SCH (09:01)
[2018-11-27] MEDS: INSULIN GLARGINE 100 UNIT/ML SUBCUT SCH (20:38)
[2018-11-27] MEDS: ENOXAPARIN 40 MG/0.4 ML SYRINGE SUBCUT SCH (23:33)
[2018-11-28 05:12] LABS: Basophils % 0.5 % (0.0-0.8); Eosinophils # 0.1 10*3/uL (0.0-0.87); Eosinophils % 1.6 % (0.00-10.9); Hematocrit 43.2 VOL% (42.0-52.0); Hemoglobin 13.9 GM/DL (14.0-18.0); Immature Granulocytes % 1.3 %; Lymphocytes # 3.5 10*3/uL (1.4-4.0); Lymphocytes % 45.9 % (21.2-54.2); Mean Corpuscular HGB Conc 32.2 GM/DL (32-36); Mean Platelet Volume 10.8 FL (9.6-12.0); Monocytes % 9.9 % (1.7-12.7); Neutrophils % 40.8 % (38.7-73.9); Platelet Count 327 T/CUMM (130-400); Red Blood Count 5.14 MC/CUMM (3.8-5.5); Red Cell Distribution Width 16.5 % (9.3-17.3); White Blood Count 7.6 T/CUMM (4-12)
[2018-11-28 05:24] LABS: Calcium 8.9 MG/DL (8.5-10.1); Osmolality,Calculated 290.4 MOS/KG (273-304)
[2018-11-28] MEDS ORDERED: CEFEPIME 1,000 MG in SODIUM CHLORIDE 0.9% 100 ML IV SCH (09:00)
[2018-11-28] MEDS: ASPIRIN CHEW 81 MG TABLET PO SCH (09:24)
[2018-11-28] MEDS: POTASSIUM CHLORIDE 20 MEQ TABLET PO SCH (09:24)
[2018-11-28] MEDS: METOPROLOL SUCCINATE XL 25 MG TABLET PO SCH (09:24)
[2018-11-28] MEDS: ATORVASTATIN 40 MG TABLET PO SCH (09:24)
[2018-11-28] MEDS: PANTOPRAZOLE 40 MG TABLET PO SCH (09:24)
[2018-11-28] MEDS: CLOPIDOGREL 75 MG TABLET PO SCH (09:24)
[2018-11-28] MEDS: INSULIN REGULAR 100 UNIT/ML SUBCUT SCH ×2 (09:32→11:42)
[2018-11-28] MEDS: SACUBITRIL/VALSARTAN 49-51 MG TABLET PO SCH (09:54)
[2018-11-28] MEDS: PIPERACILLIN/TAZOBACTAM 3,375 MG in SODIUM CHLORIDE 0.9% 100 ML IV SCH (10:04)
[2018-11-28 11:18] VITALS: BP 119/69
[2018-12-01] MEDS ORDERED: INFLUENZA VIRUS VACCINE 0.5 ML SYRINGE IM ONE (00:40)
[2018-12-01] MEDS ORDERED: PNEUMOCOCCAL VACCINE (13 VALENT) 0.5 ML SYRINGE IM ONE (00:42)
== END 2018-11-28 12:21 | disposition home health service (06) | DRG 690 ==
LOC: N.ED 20:36 → N.EDINP 23:39 → SUATTDRO 23:39 → N.ICU 11-24 00:12 → N.5E 11-25 14:39
PROVIDERS: ADMIT Internal Medicine; ATTEND Internal Medicine

== ENCOUNTER 2020-06-17 14:26 | Inpatient (IN) ==
[2020-06-17] MEDS ORDERED: cefTRIAXone 1,000 MG in SODIUM CHLORIDE 0.9% 100 ML IV STA (15:03)
[2020-06-17] MEDS ORDERED: SODIUM CHLORIDE 0.9% 1,000 ML IV STA (15:03)
[2020-06-17 15:29] LABS: Basophils % 0.1 % (0.0-0.8); Eosinophils % 0.1 % (0.00-10.9); Hematocrit 43.7 VOL% (42.0-52.0); Hemoglobin 13.6 GM/DL (14.0-18.0); Immature Granulocytes % 0.6 %; Immature Granulocytes Absolute 0.05 #; Lymphocytes # 0.6 10*3/uL (1.4-4.0); Lymphocytes % 7.5 % (21.2-54.2); Mean Corpuscular HGB Conc 31.1 GM/DL (32-36); Mean Corpuscular Volume 83.7 FL (87-102); Mean Platelet Volume 10.4 FL (9.6-12.0); Monocytes % 0.8 % (1.7-12.7); Neutrophils % 90.9 % (38.7-73.9); Platelet Count 260 T/CUMM (130-400); Red Blood Count 5.22 MC/CUMM (3.8-5.5); White Blood Count 7.8 T/CUMM (4-12)
[2020-06-17 15:49] LABS: Bacteria,Urine Occasional /HPF (Few); Bilirubin,Urine Negative (Negative); Blood, Urine Moderate mg/dL (Negative); Glucose,Urine (UA) Negative (Negative); Hyaline Casts,Urine 3 /LPF (0-3); Ketones,Urine 5 mg/dL (Negative); Mucus,Urine Occasional /LPF (Occasional); Nitrite,Urine Negative (Negative); Protein,Urine 100 MG/DL; RBC,Urine 14 /HPF (0-4); Squamous Epithelial Cell,Urine Occasional /HPF (0-10); Urine Appearance CLOUDY (Clear); Urine Color Yellow (Yellow); Urine Specific Gravity 1.011 (1.001-1.035)
[2020-06-17 15:50] LABS: Alanine Aminotransferase 20 U/L (16-61); Albumin 3.3 G/DL (3.4-5.0); Alkaline Phosphatase 161 U/L (45-117); Aspartate Amino Transferase 14 U/L (0-37); Blood Urea Nitrogen 11 MG/DL (7-18); Calcium 8.6 MG/DL (8.5-10.1); Carbon Dioxide 22 MMOL/L (21-32); Estimated Glom Filtration Rate 133 ML/MIN; Glucose 171 MG/DL (74-106); Osmolality,Calculated 277.7 MOS/KG (273-304); Potassium 3.6 MMOL/L (3.5-5.1); Sodium 138 MMOL/L (136-145); Total Protein 6.8 G/DL (6.4-8.2)
[2020-06-17] MEDS ORDERED: SODIUM CHLORIDE 0.9% 500 ML IV STA (17:03)
[2020-06-17 17:08] LABS: Band Neutrophils 12 % (0-10); Eosinophils 1 % (0-10); Hypochromasia 1+; Lymphocytes 7 % (20-55); Microcytosis 1+; Segmented Neutrophils 79 % (50-85); Total Cells Counted 100
[2020-06-17 17:09] LABS: Atypical Lymphocytes Few; Platelet Estimate Normal; Polychromasia Slight
[2020-06-17] MEDS ORDERED: GLUCAGON 1 MG VIAL IM PRN (17:40)
[2020-06-17] MEDS ORDERED: DEXTROSE 50% 25 GM/50 ML VIAL IV PRN (17:40)
[2020-06-17] MEDS ORDERED: ACETAMINOPHEN 325 MG TABLET PO PRN (17:42)
[2020-06-17] MEDS ORDERED: ONDANSETRON 4 MG/2 ML VIAL IV PRN (17:42)
[2020-06-17] MEDS ORDERED: SODIUM CHLORIDE 0.9% 1,000 ML IV SCH (18:00)
[2020-06-17] MEDS ORDERED: ENOXAPARIN 40 MG/0.4 ML SYRINGE SUBCUT SCH (18:00)
[2020-06-17] MEDS: LEVOFLOXACIN INJ 750 MG/150 ML PREMIX IV SCH (19:15)
[2020-06-17] MEDS ORDERED: VANCOMYCIN INJ 1,500 MG in SODIUM CHLORIDE 0.9% 500 ML IV SCH (19:30)
[2020-06-17] MEDS: INSULIN LISPRO 100 UNIT/ML SUBCUT SCH (21:35)
[2020-06-18 06:00] LABS: Osmolality,Calculated 280.8 MOS/KG (273-304); Potassium 3.7 MMOL/L (3.5-5.1)
[2020-06-18 06:20] LABS: Basophils # 0.1 10*3/uL (0.0-0.2); Basophils % 0.3 % (0.0-0.8); Eosinophils % 0.2 % (0.00-10.9); Hematocrit 32.5 VOL% (42.0-52.0); Immature Granulocytes % 2.9 %; Immature Granulocytes Absolute 0.67 #; Lymphocytes # 2.8 10*3/uL (1.4-4.0); Lymphocytes % 12.1 % (21.2-54.2); Mean Corpuscular HGB Conc 32.9 GM/DL (32-36); Mean Corpuscular Volume 81.3 FL (87-102); Monocytes % 8.3 % (1.7-12.7); NRBC # 0.02 10*3/uL; Neutrophils % 76.2 % (38.7-73.9); Platelet Count 237 T/CUMM (130-400); Red Cell Distribution Width 17.5 % (9.3-17.3)
[2020-06-18 06:31] LABS: Hemoglobin 10.7 GM/DL (14.0-18.0); White Blood Count 23.4 T/CUMM (4-12)
[2020-06-18 06:35] LABS: Band Neutrophils 8 % (0-10); Eosinophils 1 % (0-10); Hypochromasia 1+; Lymphocytes 8 % (20-55); Microcytosis 1+; Platelet Estimate Adequate; Segmented Neutrophils 78 % (50-85); Total Cells Counted 100
[2020-06-18] MEDS: INSULIN LISPRO 100 UNIT/ML SUBCUT SCH ×4 (10:08→20:35)
[2020-06-18] MEDS: PANTOPRAZOLE 40 MG TABLET PO SCH (10:08)
[2020-06-18] MEDS ORDERED: ALBUTEROL 2.5 MG/3 ML NEB RESP TX PRN (10:56)
[2020-06-18] MEDS: SODIUM CHLORIDE 0.9% 1,000 ML IV SCH (10:58)
[2020-06-18] MEDS: NICOTINE 21 MG/24 HR PATCH TRANSDERM SCH (11:06)
[2020-06-18] MEDS: CLOPIDOGREL 75 MG TABLET PO SCH (12:08)
[2020-06-18] MEDS: LEVOFLOXACIN INJ 750 MG/150 ML PREMIX IV SCH (19:31)
[2020-06-18] MEDS: GABAPENTIN 300 MG CAPSULE PO SCH (20:34)
[2020-06-18] MEDS: MONTELUKAST 10 MG TABLET PO SCH (20:34)
[2020-06-18] MEDS: INSULIN GLARGINE 100 UNIT/ML SUBCUT SCH (20:34)
[2020-06-18] MEDS ORDERED: INSULIN GLARGINE 100 UNIT/ML SUBCUT SCH (21:00)
[2020-06-19] MEDS: SODIUM CHLORIDE 0.9% 1,000 ML IV SCH ×2 (03:24→18:00)
[2020-06-19 05:16] LABS: Basophils # 0.1 10*3/uL (0.0-0.2); Basophils % 0.3 % (0.0-0.8); Eosinophils # 0.1 10*3/uL (0.0-0.87); Eosinophils % 0.5 % (0.00-10.9); Hematocrit 34.1 VOL% (42.0-52.0); Hemoglobin 11.1 GM/DL (14.0-18.0); Immature Granulocytes % 0.6 %; Lymphocytes # 2.5 10*3/uL (1.4-4.0); Lymphocytes % 13.7 % (21.2-54.2); Mean Corpuscular HGB Conc 32.6 GM/DL (32-36); Mean Corpuscular Volume 81.6 FL (87-102); Mean Platelet Volume 10.6 FL (9.6-12.0); Monocytes % 7.3 % (1.7-12.7); Neutrophils % 77.6 % (38.7-73.9); Platelet Count 224 T/CUMM (130-400); Red Blood Count 4.18 MC/CUMM (3.8-5.5); Red Cell Distribution Width 17.6 % (9.3-17.3)
[2020-06-19 05:38] LABS: Calcium 8.5 MG/DL (8.5-10.1); Osmolality,Calculated 285.5 MOS/KG (273-304); Potassium 3.7 MMOL/L (3.5-5.1)
[2020-06-19] MEDS ORDERED: CLOPIDOGREL 75 MG TABLET PO SCH (09:00)
[2020-06-19] MEDS: INSULIN LISPRO 100 UNIT/ML SUBCUT SCH ×7 (10:01→22:10)
[2020-06-19] MEDS: CLOPIDOGREL 75 MG TABLET PO SCH (10:02)
[2020-06-19] MEDS: ASPIRIN EC 81 MG TABLET PO SCH (10:02)
[2020-06-19] MEDS: ROSUVASTATIN 20 MG TABLET PO SCH (10:02)
[2020-06-19] MEDS: FENOFIBRATE 145 MG TABLET PO SCH (10:02)
[2020-06-19] MEDS: PANTOPRAZOLE 40 MG TABLET PO SCH (10:02)
[2020-06-19] MEDS: CETIRIZINE 10 MG TABLET PO SCH (10:02)
[2020-06-19] MEDS: NICOTINE 21 MG/24 HR PATCH TRANSDERM SCH (10:03)
[2020-06-19] MEDS: FUROSEMIDE 40 MG TABLET PO SCH (10:03)
[2020-06-19] MEDS: LEVOFLOXACIN INJ 750 MG/150 ML PREMIX IV SCH (18:02)
[2020-06-19] MEDS: INSULIN GLARGINE 100 UNIT/ML SUBCUT SCH (22:10)
[2020-06-19] MEDS: MONTELUKAST 10 MG TABLET PO SCH (22:10)
[2020-06-19] MEDS: GABAPENTIN 300 MG CAPSULE PO SCH (22:10)
[2020-06-20 05:29] LABS: Basophils % 0.3 % (0.0-0.8); Eosinophils # 0.1 10*3/uL (0.0-0.87); Eosinophils % 0.9 % (0.00-10.9); Hematocrit 35.7 VOL% (42.0-52.0); Hemoglobin 11.4 GM/DL (14.0-18.0); Immature Granulocytes % 0.5 %; Immature Granulocytes Absolute 0.06 #; Lymphocytes # 2.8 10*3/uL (1.4-4.0); Mean Corpuscular HGB Conc 31.9 GM/DL (32-36); Mean Corpuscular Volume 82.1 FL (87-102); Mean Platelet Volume 11.6 FL (9.6-12.0); Monocytes % 9.6 % (1.7-12.7); Neutrophils % 64.7 % (38.7-73.9); Platelet Count 288 T/CUMM (130-400); Red Blood Count 4.35 MC/CUMM (3.8-5.5); Red Cell Distribution Width 17.2 % (9.3-17.3); White Blood Count 11.6 T/CUMM (4-12)
[2020-06-20 05:47] LABS: Calcium 8.8 MG/DL (8.5-10.1); Osmolality,Calculated 288.3 MOS/KG (273-304); Potassium 3.6 MMOL/L (3.5-5.1)
[2020-06-20] MEDS: SODIUM CHLORIDE 0.9% 1,000 ML IV SCH (07:13)
[2020-06-20] MEDS: NICOTINE 21 MG/24 HR PATCH TRANSDERM SCH (09:02)
[2020-06-20] MEDS: INSULIN LISPRO 100 UNIT/ML SUBCUT SCH ×4 (09:02→11:46)
[2020-06-20] MEDS: PANTOPRAZOLE 40 MG TABLET PO SCH (09:03)
[2020-06-20] MEDS: CETIRIZINE 10 MG TABLET PO SCH (09:03)
[2020-06-20] MEDS: FUROSEMIDE 40 MG TABLET PO SCH (09:03)
[2020-06-20] MEDS: ASPIRIN EC 81 MG TABLET PO SCH (09:03)
[2020-06-20] MEDS: ROSUVASTATIN 20 MG TABLET PO SCH (09:03)
[2020-06-20] MEDS: FENOFIBRATE 145 MG TABLET PO SCH (09:04)
[2020-06-20] MEDS: CLOPIDOGREL 75 MG TABLET PO SCH (09:04)
[2020-06-20 11:37] VITALS: BP 136/77
== END 2020-06-20 13:55 | disposition home or self-care (01) | DRG 871 ==
LOC: EDUNIT# → N.ED 14:26 → N.EDINP 17:40 → N.3E 20:42
PROVIDERS: ADMIT Emergency Medicine; ATTEND Emergency Medicine

== ENCOUNTER 2020-09-05 16:39 | Inpatient (IN) ==
[2020-09-05] MEDS ORDERED: SODIUM CHLORIDE 0.9% 250 ML IV STA (20:25)
[2020-09-05 21:41] LABS: Basophils % 0.3 % (0.0-0.8); Eosinophils # 0.1 10*3/uL (0.0-0.87); Eosinophils % 0.7 % (0.00-10.9); Hematocrit 38.3 VOL% (42.0-52.0); Hemoglobin 12.2 GM/DL (14.0-18.0); Immature Granulocytes % 0.6 %; Immature Granulocytes Absolute 0.07 #; Lymphocytes # 2.7 10*3/uL (1.4-4.0); Lymphocytes % 22.1 % (21.2-54.2); Mean Corpuscular HGB Conc 31.9 GM/DL (32-36); Mean Corpuscular Volume 79.6 FL (87-102); Mean Platelet Volume 10.2 FL (9.6-12.0); Monocytes % 11.1 % (1.7-12.7); Neutrophils % 65.2 % (38.7-73.9); Platelet Count 325 T/CUMM (130-400); Red Blood Count 4.81 MC/CUMM (3.8-5.5); Red Cell Distribution Width 18.9 % (9.3-17.3); White Blood Count 12.2 T/CUMM (4-12)
[2020-09-05 21:47] LABS: Bacteria,Urine Occasional /HPF (Few); Bilirubin,Urine Negative (Negative); Blood, Urine Negative (Negative); Glucose,Urine (UA) 50 mg/dL (Negative); Ketones,Urine Negative (Negative); Mucus,Urine Occasional /LPF (Occasional); Nitrite,Urine Positive (Negative); Protein,Urine Negative; RBC,Urine 1 /HPF (0-4); Squamous Epithelial Cell,Urine Occasional /HPF (0-10); Urine Appearance CLEAR (Clear); Urine Color Yellow (Yellow); Urine Specific Gravity 1.016 (1.001-1.035)
[2020-09-05 22:02] LABS: Alanine Aminotransferase 29 U/L (16-61); Albumin 2.8 G/DL (3.4-5.0); Alkaline Phosphatase 64 U/L (45-117); Aspartate Amino Transferase 18 U/L (0-37); Bilirubin,Total < 0.39 MG/DL (0.20-1.00); Blood Urea Nitrogen 6 MG/DL (7-18); Calcium 8.8 MG/DL (8.5-10.1); Carbon Dioxide 22 MMOL/L (21-32); Estimated Glom Filtration Rate 146 ML/MIN; Glucose 157 MG/DL (74-106); Osmolality,Calculated 273.8 MOS/KG (273-304); Potassium 4.1 MMOL/L (3.5-5.1); Sodium 137 MMOL/L (136-145); Total Protein 7.4 G/DL (6.4-8.2)
[2020-09-05] MEDS ORDERED: VANCOMYCIN INJ 1,000 MG in SODIUM CHLORIDE 0.9% 250 ML IV STA (23:34)
[2020-09-05] MEDS ORDERED: PIPERACILLIN/TAZOBACTAM 3,375 MG in SODIUM CHLORIDE 0.9% 100 ML IV STA (23:34)
[2020-09-05] MEDS ORDERED: SODIUM CHLORIDE 0.9% 1,000 ML IV STA (23:36)
[2020-09-06] MEDS ORDERED: DEXTROSE 50% 25 GM/50 ML VIAL IV PRN (01:50)
[2020-09-06] MEDS ORDERED: GLUCAGON 1 MG VIAL IM PRN (01:50)
[2020-09-06] MEDS ORDERED: ACETAMINOPHEN 325 MG TABLET PO PRN (01:52)
[2020-09-06] MEDS ORDERED: DOCUSATE SODIUM 100 MG CAPSULE PO PRN (01:52)
[2020-09-06] MEDS ORDERED: BISACODYL 5 MG TABLET PO PRN (01:52)
[2020-09-06] MEDS ORDERED: ONDANSETRON 4 MG/2 ML VIAL IV PRN (01:52)
[2020-09-06] MEDS ORDERED: hydrALAZINE 20 MG/1 ML VIAL IV PRN (01:52)
[2020-09-06] MEDS ORDERED: MORPHINE 2 MG/1 ML SYRINGE IV PRN (04:29)
[2020-09-06 06:27] LABS: Basophils % 0.3 % (0.0-0.8); Eosinophils # 0.1 10*3/uL (0.0-0.87); Eosinophils % 0.9 % (0.00-10.9); Hematocrit 37.6 VOL% (42.0-52.0); Hemoglobin 12.4 GM/DL (14.0-18.0); Immature Granulocytes % 0.4 %; Immature Granulocytes Absolute 0.05 #; Lymphocytes # 2.5 10*3/uL (1.4-4.0); Lymphocytes % 20.2 % (21.2-54.2); Mean Corpuscular Volume 78.3 FL (87-102); Mean Platelet Volume 9.8 FL (9.6-12.0); Monocytes % 11.1 % (1.7-12.7); Neutrophils % 67.1 % (38.7-73.9); Platelet Count 418 T/CUMM (130-400); Red Cell Distribution Width 18.5 % (9.3-17.3); White Blood Count 12.6 T/CUMM (4-12)
[2020-09-06 06:39] LABS: Calcium 8.5 MG/DL (8.5-10.1); Osmolality,Calculated 278.5 MOS/KG (273-304); Potassium 3.9 MMOL/L (3.5-5.1)
[2020-09-06] MEDS: SODIUM CHLORIDE 0.9% 1,000 ML IV SCH ×2 (07:11→18:39)
[2020-09-06] MEDS: INSULIN LISPRO 100 UNIT/ML SUBCUT SCH ×4 (08:33→22:19)
[2020-09-06] MEDS: PANTOPRAZOLE 40 MG TABLET PO SCH (09:10)
[2020-09-06] MEDS: PIPERACILLIN/TAZOBACTAM 3,375 MG in SODIUM CHLORIDE 0.9% 100 ML IV SCH ×3 (09:11→23:50)
[2020-09-06] MEDS ORDERED: LIDOCAINE 1% 20 ML VIAL ONE (09:47)
[2020-09-06] MEDS ORDERED: HEPARIN 5,000 UNIT/1 ML VIAL ONE (09:47)
[2020-09-06] MEDS ORDERED: propofoL 200 MG/20 ML VIAL IV ONE (09:55)
[2020-09-06] MEDS ORDERED: LIDOCAINE 2% 5 ML VIAL ONE (09:55)
[2020-09-06] MEDS ORDERED: SEVOFLURANE 1 UNIT/15 MINUTE INH ONE ×2 (09:55→11:12)
[2020-09-06] MEDS ORDERED: ONDANSETRON 4 MG/2 ML VIAL ONE (09:55)
[2020-09-06] MEDS ORDERED: fentaNYL 100 MCG/2 ML VIAL ONE ×2 (09:56→11:21)
[2020-09-06] MEDS ORDERED: MIDAZOLAM 2 MG/2 ML VIAL ONE (09:56)
[2020-09-06] MEDS ORDERED: ACETAMINOPHEN INJ 1,000 MG/100 ML VIAL IV ONE (11:12)
[2020-09-06] MEDS ORDERED: SODIUM CHLORIDE 0.9% 250 ML IV ONE (11:46)
[2020-09-06] MEDS ORDERED: FAMOTIDINE 20 MG TABLET PO PRN (14:00)
[2020-09-06] MEDS: VANCOMYCIN INJ 1,250 MG in SODIUM CHLORIDE 0.9% 250 ML IV SCH (14:48)
[2020-09-06] MEDS: CETIRIZINE 10 MG TABLET PO SCH (18:05)
[2020-09-06] MEDS: MONTELUKAST 10 MG TABLET PO SCH (18:05)
[2020-09-06] MEDS: METOPROLOL SUCCINATE XL 100 MG TABLET PO SCH (22:19)
[2020-09-06] MEDS: GABAPENTIN 300 MG CAPSULE PO SCH (22:19)
[2020-09-06] MEDS: SACUBITRIL/VALSARTAN 49-51 MG TABLET PO SCH (22:19)
[2020-09-07] MEDS: VANCOMYCIN INJ 1,250 MG in SODIUM CHLORIDE 0.9% 250 ML IV SCH ×3 (04:47→23:10)
[2020-09-07] MEDS: SODIUM CHLORIDE 0.9% 1,000 ML IV SCH ×2 (04:50→18:00)
[2020-09-07 06:01] LABS: Basophils # 0.1 10*3/uL (0.0-0.2); Basophils % 0.3 % (0.0-0.8); Eosinophils # 0.1 10*3/uL (0.0-0.87); Eosinophils % 0.9 % (0.00-10.9); Hematocrit 34.9 VOL% (42.0-52.0); Hemoglobin 11.3 GM/DL (14.0-18.0); Immature Granulocytes % 0.5 %; Immature Granulocytes Absolute 0.07 #; Lymphocytes # 2.6 10*3/uL (1.4-4.0); Lymphocytes % 17.1 % (21.2-54.2); Mean Corpuscular HGB Conc 32.4 GM/DL (32-36); Mean Corpuscular Volume 79.1 FL (87-102); Neutrophils % 71.2 % (38.7-73.9); Platelet Count 430 T/CUMM (130-400); Red Blood Count 4.41 MC/CUMM (3.8-5.5); Red Cell Distribution Width 18.5 % (9.3-17.3); White Blood Count 15.2 T/CUMM (4-12)
[2020-09-07 06:31] LABS: Calcium 8.5 MG/DL (8.5-10.1); Osmolality,Calculated 281.4 MOS/KG (273-304); Potassium 3.6 MMOL/L (3.5-5.1)
[2020-09-07] MEDS: PANTOPRAZOLE 40 MG TABLET PO SCH (08:24)
[2020-09-07] MEDS: SACUBITRIL/VALSARTAN 49-51 MG TABLET PO SCH ×2 (08:24→20:49)
[2020-09-07] MEDS: PIPERACILLIN/TAZOBACTAM 3,375 MG in SODIUM CHLORIDE 0.9% 100 ML IV SCH ×2 (08:24→17:08)
[2020-09-07] MEDS: ROSUVASTATIN 20 MG TABLET PO SCH (08:24)
[2020-09-07] MEDS: INSULIN LISPRO 100 UNIT/ML SUBCUT SCH ×4 (08:24→20:49)
[2020-09-07] MEDS: FENOFIBRATE 145 MG TABLET PO SCH (08:25)
[2020-09-07] MEDS: FUROSEMIDE 40 MG TABLET PO SCH (08:25)
[2020-09-07] MEDS: METOPROLOL SUCCINATE XL 100 MG TABLET PO SCH ×2 (08:25→20:48)
[2020-09-07] MEDS: SODIUM HYPOCHLORITE 0.25% IRRIG 473 ML BOTTLE TOP SCH (10:45)
[2020-09-07] MEDS: CETIRIZINE 10 MG TABLET PO SCH (17:08)
[2020-09-07] MEDS: MONTELUKAST 10 MG TABLET PO SCH (17:08)
[2020-09-07] MEDS: GABAPENTIN 300 MG CAPSULE PO SCH (23:10)
[2020-09-08] MEDS: PIPERACILLIN/TAZOBACTAM 3,375 MG in SODIUM CHLORIDE 0.9% 100 ML IV SCH ×3 (00:54→16:22)
[2020-09-08 06:25] LABS: Basophils # 0.1 10*3/uL (0.0-0.2); Basophils % 0.4 % (0.0-0.8); Eosinophils # 0.2 10*3/uL (0.0-0.87); Eosinophils % 1.3 % (0.00-10.9); Hematocrit 35.3 VOL% (42.0-52.0); Hemoglobin 11.4 GM/DL (14.0-18.0); Immature Granulocytes % 0.6 %; Lymphocytes # 2.8 10*3/uL (1.4-4.0); Lymphocytes % 17.3 % (21.2-54.2); Mean Corpuscular HGB Conc 32.3 GM/DL (32-36); Mean Corpuscular Volume 79.3 FL (87-102); Monocytes % 9.7 % (1.7-12.7); Neutrophils % 70.7 % (38.7-73.9); Platelet Count 480 T/CUMM (130-400); Red Blood Count 4.45 MC/CUMM (3.8-5.5); Red Cell Distribution Width 18.5 % (9.3-17.3)
[2020-09-08 06:44] LABS: Calcium 8.3 MG/DL (8.5-10.1); Osmolality,Calculated 280.5 MOS/KG (273-304); Potassium 3.4 MMOL/L (3.5-5.1)
[2020-09-08] MEDS: SODIUM CHLORIDE 0.9% 1,000 ML IV SCH (07:06)
[2020-09-08] MEDS: ROSUVASTATIN 20 MG TABLET PO SCH (09:00)
[2020-09-08] MEDS: FENOFIBRATE 145 MG TABLET PO SCH (09:00)
[2020-09-08] MEDS: PANTOPRAZOLE 40 MG TABLET PO SCH (09:00)
[2020-09-08] MEDS: SACUBITRIL/VALSARTAN 49-51 MG TABLET PO SCH ×2 (09:00→21:51)
[2020-09-08] MEDS: FUROSEMIDE 40 MG TABLET PO SCH (09:00)
[2020-09-08] MEDS: METOPROLOL SUCCINATE XL 100 MG TABLET PO SCH ×2 (09:00→21:51)
[2020-09-08] MEDS: INSULIN LISPRO 100 UNIT/ML SUBCUT SCH ×4 (09:00→21:50)
[2020-09-08] MEDS: SODIUM HYPOCHLORITE 0.25% IRRIG 473 ML BOTTLE TOP SCH (09:01)
[2020-09-08] MEDS ORDERED: ALBUTEROL/IPRATROPIUM 3 ML NEB RESP TX PRN (10:21)
[2020-09-08] MEDS: VANCOMYCIN INJ 1,250 MG in SODIUM CHLORIDE 0.9% 250 ML IV SCH (13:28)
[2020-09-08] MEDS: CETIRIZINE 10 MG TABLET PO SCH (17:11)
[2020-09-08] MEDS: MONTELUKAST 10 MG TABLET PO SCH (17:11)
[2020-09-08] MEDS: POTASSIUM CHLORIDE 20 MEQ TABLET PO PRN ×2 (21:51→21:56)
[2020-09-08] MEDS: GABAPENTIN 300 MG CAPSULE PO SCH (22:03)
[2020-09-09] MEDS: VANCOMYCIN INJ 1,250 MG in SODIUM CHLORIDE 0.9% 250 ML IV SCH ×2 (01:02→13:23)
[2020-09-09] MEDS: PIPERACILLIN/TAZOBACTAM 3,375 MG in SODIUM CHLORIDE 0.9% 100 ML IV SCH ×2 (02:23→09:28)
[2020-09-09 05:15] LABS: Basophils # 0.1 10*3/uL (0.0-0.2); Basophils % 0.4 % (0.0-0.8); Eosinophils # 0.2 10*3/uL (0.0-0.87); Eosinophils % 1.7 % (0.00-10.9); Hematocrit 35.7 VOL% (42.0-52.0); Hemoglobin 11.7 GM/DL (14.0-18.0); Immature Granulocytes % 0.7 %; Immature Granulocytes Absolute 0.09 #; Lymphocytes # 2.8 10*3/uL (1.4-4.0); Lymphocytes % 21.3 % (21.2-54.2); Mean Corpuscular HGB Conc 32.8 GM/DL (32-36); Mean Corpuscular Volume 77.6 FL (87-102); Mean Platelet Volume 9.6 FL (9.6-12.0); Monocytes % 10.5 % (1.7-12.7); Neutrophils % 65.4 % (38.7-73.9); Platelet Count 506 T/CUMM (130-400); Red Cell Distribution Width 18.3 % (9.3-17.3); White Blood Count 12.9 T/CUMM (4-12)
[2020-09-09 05:55] LABS: Calcium 8.4 MG/DL (8.5-10.1); Osmolality,Calculated 280.7 MOS/KG (273-304)
[2020-09-09] MEDS: SACUBITRIL/VALSARTAN 49-51 MG TABLET PO SCH ×2 (09:27→21:07)
[2020-09-09] MEDS: FUROSEMIDE 40 MG TABLET PO SCH (09:27)
[2020-09-09] MEDS: FENOFIBRATE 145 MG TABLET PO SCH (09:27)
[2020-09-09] MEDS: PANTOPRAZOLE 40 MG TABLET PO SCH (09:27)
[2020-09-09] MEDS: METOPROLOL SUCCINATE XL 100 MG TABLET PO SCH ×2 (09:27→21:08)
[2020-09-09] MEDS: ROSUVASTATIN 20 MG TABLET PO SCH (09:27)
[2020-09-09] MEDS: INSULIN LISPRO 100 UNIT/ML SUBCUT SCH ×4 (10:15→22:21)
[2020-09-09] MEDS: SODIUM HYPOCHLORITE 0.25% IRRIG 473 ML BOTTLE TOP SCH (13:17)
[2020-09-09] MEDS: CEFEPIME 1,000 MG in SODIUM CHLORIDE 0.9% 100 ML IV SCH ×2 (13:40→21:07)
[2020-09-09] MEDS: CLOPIDOGREL 75 MG TABLET PO SCH (13:40)
[2020-09-09] MEDS: ASPIRIN EC 81 MG TABLET PO SCH (13:40)
[2020-09-09] MEDS: CETIRIZINE 10 MG TABLET PO SCH (18:25)
[2020-09-09] MEDS: MONTELUKAST 10 MG TABLET PO SCH (18:25)
[2020-09-09] MEDS: GABAPENTIN 300 MG CAPSULE PO SCH ×2 (21:08→22:23)
[2020-09-10] MEDS: CEFEPIME 1,000 MG in SODIUM CHLORIDE 0.9% 100 ML IV SCH ×4 (01:25→21:45)
[2020-09-10 05:07] LABS: Basophils # 0.1 10*3/uL (0.0-0.2); Basophils % 0.7 % (0.0-0.8); Eosinophils # 0.2 10*3/uL (0.0-0.87); Eosinophils % 1.7 % (0.00-10.9); Hematocrit 37.9 VOL% (42.0-52.0); Hemoglobin 11.9 GM/DL (14.0-18.0); Immature Granulocytes % 0.5 %; Immature Granulocytes Absolute 0.05 #; Lymphocytes # 2.5 10*3/uL (1.4-4.0); Lymphocytes % 24.7 % (21.2-54.2); Mean Corpuscular HGB Conc 31.4 GM/DL (32-36); Mean Corpuscular Volume 78.6 FL (87-102); Mean Platelet Volume 9.9 FL (9.6-12.0); Neutrophils % 62.4 % (38.7-73.9); Platelet Count 551 T/CUMM (130-400); Red Blood Count 4.82 MC/CUMM (3.8-5.5); Red Cell Distribution Width 18.6 % (9.3-17.3); White Blood Count 10.1 T/CUMM (4-12)
[2020-09-10 05:34] LABS: Calcium 8.5 MG/DL (8.5-10.1); Osmolality,Calculated 286.5 MOS/KG (273-304); Potassium 3.6 MMOL/L (3.5-5.1)
[2020-09-10] MEDS: FENOFIBRATE 145 MG TABLET PO SCH (08:48)
[2020-09-10] MEDS: SACUBITRIL/VALSARTAN 49-51 MG TABLET PO SCH ×2 (08:48→21:45)
[2020-09-10] MEDS: METOPROLOL SUCCINATE XL 100 MG TABLET PO SCH ×2 (08:48→21:45)
[2020-09-10] MEDS: ASPIRIN EC 81 MG TABLET PO SCH (08:48)
[2020-09-10] MEDS: FUROSEMIDE 40 MG TABLET PO SCH (08:48)
[2020-09-10] MEDS: PANTOPRAZOLE 40 MG TABLET PO SCH (08:48)
[2020-09-10] MEDS: CLOPIDOGREL 75 MG TABLET PO SCH (08:48)
[2020-09-10] MEDS: ROSUVASTATIN 20 MG TABLET PO SCH (08:48)
[2020-09-10] MEDS: POTASSIUM CHLORIDE 20 MEQ TABLET PO PRN ×2 (08:49→11:45)
[2020-09-10] MEDS: SODIUM HYPOCHLORITE 0.25% IRRIG 473 ML BOTTLE TOP SCH (09:22)
[2020-09-10] MEDS: INSULIN LISPRO 100 UNIT/ML SUBCUT SCH ×4 (09:25→22:26)
[2020-09-10] MEDS: CETIRIZINE 10 MG TABLET PO SCH (17:23)
[2020-09-10] MEDS: MONTELUKAST 10 MG TABLET PO SCH (17:23)
[2020-09-10] MEDS: GABAPENTIN 300 MG CAPSULE PO SCH (22:59)
[2020-09-11] MEDS: CEFEPIME 1,000 MG in SODIUM CHLORIDE 0.9% 100 ML IV SCH ×4 (02:22→21:20)
[2020-09-11 06:07] LABS: Basophils # 0.1 10*3/uL (0.0-0.2); Basophils % 0.6 % (0.0-0.8); Eosinophils # 0.1 10*3/uL (0.0-0.87); Eosinophils % 1.4 % (0.00-10.9); Hematocrit 37.5 VOL% (42.0-52.0); Hemoglobin 12.1 GM/DL (14.0-18.0); Immature Granulocytes % 0.5 %; Immature Granulocytes Absolute 0.05 #; Lymphocytes # 2.9 10*3/uL (1.4-4.0); Lymphocytes % 28.2 % (21.2-54.2); Mean Corpuscular HGB Conc 32.3 GM/DL (32-36); Mean Corpuscular Volume 78.5 FL (87-102); Mean Platelet Volume 9.6 FL (9.6-12.0); Monocytes % 9.5 % (1.7-12.7); NRBC # 0.02 10*3/uL; Neutrophils % 59.8 % (38.7-73.9); Platelet Count 582 T/CUMM (130-400); Red Blood Count 4.78 MC/CUMM (3.8-5.5); Red Cell Distribution Width 18.9 % (9.3-17.3); White Blood Count 10.2 T/CUMM (4-12)
[2020-09-11 06:25] LABS: Calcium 8.7 MG/DL (8.5-10.1); Osmolality,Calculated 280.7 MOS/KG (273-304); Potassium 3.6 MMOL/L (3.5-5.1)
[2020-09-11] MEDS: INSULIN LISPRO 100 UNIT/ML SUBCUT SCH ×4 (07:30→21:20)
[2020-09-11] MEDS: SODIUM HYPOCHLORITE 0.25% IRRIG 473 ML BOTTLE TOP SCH (09:00)
[2020-09-11] MEDS: ROSUVASTATIN 20 MG TABLET PO SCH (09:44)
[2020-09-11] MEDS: ASPIRIN EC 81 MG TABLET PO SCH (09:44)
[2020-09-11] MEDS: SACUBITRIL/VALSARTAN 49-51 MG TABLET PO SCH ×2 (09:44→21:20)
[2020-09-11] MEDS: FENOFIBRATE 145 MG TABLET PO SCH (09:45)
[2020-09-11] MEDS: FUROSEMIDE 40 MG TABLET PO SCH (09:45)
[2020-09-11] MEDS: METOPROLOL SUCCINATE XL 100 MG TABLET PO SCH ×2 (09:45→21:20)
[2020-09-11] MEDS: CLOPIDOGREL 75 MG TABLET PO SCH (09:45)
[2020-09-11] MEDS: PANTOPRAZOLE 40 MG TABLET PO SCH (09:45)
[2020-09-11] MEDS: CETIRIZINE 10 MG TABLET PO SCH (17:45)
[2020-09-11] MEDS: MONTELUKAST 10 MG TABLET PO SCH (17:45)
[2020-09-11] MEDS: GABAPENTIN 300 MG CAPSULE PO SCH (22:40)
[2020-09-12] MEDS: CEFEPIME 1,000 MG in SODIUM CHLORIDE 0.9% 100 ML IV SCH ×4 (01:16→20:59)
[2020-09-12 05:53] LABS: Basophils # 0.1 10*3/uL (0.0-0.2); Basophils % 0.7 % (0.0-0.8); Eosinophils # 0.1 10*3/uL (0.0-0.87); Eosinophils % 1.4 % (0.00-10.9); Hematocrit 37.1 VOL% (42.0-52.0); Hemoglobin 11.9 GM/DL (14.0-18.0); Immature Granulocytes % 0.4 %; Immature Granulocytes Absolute 0.04 #; Lymphocytes # 3.3 10*3/uL (1.4-4.0); Lymphocytes % 34.4 % (21.2-54.2); Mean Corpuscular HGB Conc 32.1 GM/DL (32-36); Mean Corpuscular Volume 79.8 FL (87-102); Mean Platelet Volume 9.6 FL (9.6-12.0); Monocytes % 8.6 % (1.7-12.7); Neutrophils % 54.5 % (38.7-73.9); Platelet Count 562 T/CUMM (130-400); Red Blood Count 4.65 MC/CUMM (3.8-5.5); Red Cell Distribution Width 19.4 % (9.3-17.3); White Blood Count 9.5 T/CUMM (4-12)
[2020-09-12 06:12] LABS: Calcium 8.8 MG/DL (8.5-10.1); Osmolality,Calculated 283.7 MOS/KG (273-304); Potassium 3.7 MMOL/L (3.5-5.1)
[2020-09-12] MEDS: INSULIN LISPRO 100 UNIT/ML SUBCUT SCH ×4 (10:17→20:59)
[2020-09-12] MEDS: ASPIRIN EC 81 MG TABLET PO SCH (10:18)
[2020-09-12] MEDS: ROSUVASTATIN 20 MG TABLET PO SCH (10:18)
[2020-09-12] MEDS: PANTOPRAZOLE 40 MG TABLET PO SCH (10:19)
[2020-09-12] MEDS: FENOFIBRATE 145 MG TABLET PO SCH (10:19)
[2020-09-12] MEDS: FUROSEMIDE 40 MG TABLET PO SCH (10:19)
[2020-09-12] MEDS: METOPROLOL SUCCINATE XL 100 MG TABLET PO SCH ×2 (10:19→20:59)
[2020-09-12] MEDS: SACUBITRIL/VALSARTAN 49-51 MG TABLET PO SCH ×2 (10:19→20:59)
[2020-09-12] MEDS: CLOPIDOGREL 75 MG TABLET PO SCH (10:19)
[2020-09-12] MEDS: SODIUM HYPOCHLORITE 0.25% IRRIG 473 ML BOTTLE TOP SCH (11:33)
[2020-09-12] MEDS: MONTELUKAST 10 MG TABLET PO SCH (17:49)
[2020-09-12] MEDS: CETIRIZINE 10 MG TABLET PO SCH (17:49)
[2020-09-12] MEDS: GABAPENTIN 300 MG CAPSULE PO SCH (23:39)
[2020-09-13] MEDS: CEFEPIME 1,000 MG in SODIUM CHLORIDE 0.9% 100 ML IV SCH ×4 (01:48→20:58)
[2020-09-13 05:16] LABS: Basophils # 0.1 10*3/uL (0.0-0.2); Basophils % 0.6 % (0.0-0.8); Eosinophils # 0.2 10*3/uL (0.0-0.87); Eosinophils % 1.8 % (0.00-10.9); Hemoglobin 12.2 GM/DL (14.0-18.0); Immature Granulocytes % 0.5 %; Immature Granulocytes Absolute 0.05 #; Lymphocytes # 3.2 10*3/uL (1.4-4.0); Mean Corpuscular HGB Conc 32.1 GM/DL (32-36); Mean Platelet Volume 9.5 FL (9.6-12.0); Monocytes % 8.9 % (1.7-12.7); Neutrophils % 55.2 % (38.7-73.9); Platelet Count 589 T/CUMM (130-400); Red Blood Count 4.81 MC/CUMM (3.8-5.5); Red Cell Distribution Width 19.9 % (9.3-17.3); White Blood Count 9.6 T/CUMM (4-12)
[2020-09-13 05:56] LABS: Calcium 8.8 MG/DL (8.5-10.1); Osmolality,Calculated 283.7 MOS/KG (273-304); Potassium 3.7 MMOL/L (3.5-5.1)
[2020-09-13] MEDS: ROSUVASTATIN 20 MG TABLET PO SCH (09:11)
[2020-09-13] MEDS: FUROSEMIDE 40 MG TABLET PO SCH (09:11)
[2020-09-13] MEDS: FENOFIBRATE 145 MG TABLET PO SCH (09:11)
[2020-09-13] MEDS: SACUBITRIL/VALSARTAN 49-51 MG TABLET PO SCH ×2 (09:11→20:59)
[2020-09-13] MEDS: METOPROLOL SUCCINATE XL 100 MG TABLET PO SCH ×2 (09:11→20:59)
[2020-09-13] MEDS: ASPIRIN EC 81 MG TABLET PO SCH (09:11)
[2020-09-13] MEDS: CLOPIDOGREL 75 MG TABLET PO SCH (09:11)
[2020-09-13] MEDS: INSULIN LISPRO 100 UNIT/ML SUBCUT SCH ×5 (09:12→20:59)
[2020-09-13] MEDS: PANTOPRAZOLE 40 MG TABLET PO SCH (09:12)
[2020-09-13] MEDS: SODIUM HYPOCHLORITE 0.25% IRRIG 473 ML BOTTLE TOP SCH (09:16)
[2020-09-13] MEDS: CETIRIZINE 10 MG TABLET PO SCH (17:04)
[2020-09-13] MEDS: MONTELUKAST 10 MG TABLET PO SCH (17:04)
[2020-09-13] MEDS: INSULIN GLARGINE 100 UNIT/ML SUBCUT SCH (21:00)
[2020-09-13] MEDS: GABAPENTIN 300 MG CAPSULE PO SCH (23:15)
[2020-09-14] MEDS: CEFEPIME 1,000 MG in SODIUM CHLORIDE 0.9% 100 ML IV SCH ×4 (01:40→21:16)
[2020-09-14 05:33] LABS: Basophils # 0.1 10*3/uL (0.0-0.2); Basophils % 0.6 % (0.0-0.8); Eosinophils # 0.2 10*3/uL (0.0-0.87); Eosinophils % 1.4 % (0.00-10.9); Hemoglobin 12.2 GM/DL (14.0-18.0); Immature Granulocytes % 0.4 %; Immature Granulocytes Absolute 0.05 #; Lymphocytes # 3.1 10*3/uL (1.4-4.0); Lymphocytes % 27.7 % (21.2-54.2); Mean Corpuscular HGB Conc 31.3 GM/DL (32-36); Mean Corpuscular Volume 79.1 FL (87-102); Mean Platelet Volume 9.7 FL (9.6-12.0); Neutrophils % 59.9 % (38.7-73.9); Platelet Count 628 T/CUMM (130-400); Red Blood Count 4.93 MC/CUMM (3.8-5.5); Red Cell Distribution Width 20.1 % (9.3-17.3); White Blood Count 11.3 T/CUMM (4-12)
[2020-09-14 06:02] LABS: Calcium 8.8 MG/DL (8.5-10.1); Osmolality,Calculated 283.5 MOS/KG (273-304); Potassium 3.5 MMOL/L (3.5-5.1)
[2020-09-14 06:11] LABS: Anisocytosis 2+; Platelet Estimate Increased; Target Cells Few
[2020-09-14 06:12] LABS: Polychromasia Slight
[2020-09-14] MEDS: INSULIN LISPRO 100 UNIT/ML SUBCUT SCH ×4 (09:25→21:15)
[2020-09-14] MEDS: FENOFIBRATE 145 MG TABLET PO SCH (09:28)
[2020-09-14] MEDS: SACUBITRIL/VALSARTAN 49-51 MG TABLET PO SCH ×2 (09:28→21:11)
[2020-09-14] MEDS: CLOPIDOGREL 75 MG TABLET PO SCH (09:28)
[2020-09-14] MEDS: FUROSEMIDE 40 MG TABLET PO SCH (09:28)
[2020-09-14] MEDS: ASPIRIN EC 81 MG TABLET PO SCH (09:29)
[2020-09-14] MEDS: ROSUVASTATIN 20 MG TABLET PO SCH (09:29)
[2020-09-14] MEDS: PANTOPRAZOLE 40 MG TABLET PO SCH (09:29)
[2020-09-14] MEDS: METOPROLOL SUCCINATE XL 100 MG TABLET PO SCH ×2 (09:29→21:11)
[2020-09-14] MEDS: SODIUM HYPOCHLORITE 0.25% IRRIG 473 ML BOTTLE TOP SCH (16:20)
[2020-09-14] MEDS: CETIRIZINE 10 MG TABLET PO SCH (18:04)
[2020-09-14] MEDS: MONTELUKAST 10 MG TABLET PO SCH (18:04)
[2020-09-14] MEDS: INSULIN GLARGINE 100 UNIT/ML SUBCUT SCH (21:15)
[2020-09-14] MEDS: GABAPENTIN 300 MG CAPSULE PO SCH (23:40)
[2020-09-15] MEDS: CEFEPIME 1,000 MG in SODIUM CHLORIDE 0.9% 100 ML IV SCH ×3 (01:44→14:54)
[2020-09-15] MEDS: INSULIN LISPRO 100 UNIT/ML SUBCUT SCH ×2 (08:21→11:19)
[2020-09-15] MEDS: ASPIRIN EC 81 MG TABLET PO SCH (08:25)
[2020-09-15] MEDS: METOPROLOL SUCCINATE XL 100 MG TABLET PO SCH (08:25)
[2020-09-15] MEDS: FUROSEMIDE 40 MG TABLET PO SCH (08:26)
[2020-09-15] MEDS: ROSUVASTATIN 20 MG TABLET PO SCH (08:26)
[2020-09-15] MEDS: CLOPIDOGREL 75 MG TABLET PO SCH (08:26)
[2020-09-15] MEDS: SACUBITRIL/VALSARTAN 49-51 MG TABLET PO SCH (08:26)
[2020-09-15] MEDS: FENOFIBRATE 145 MG TABLET PO SCH (08:30)
[2020-09-15] MEDS: PANTOPRAZOLE 40 MG TABLET PO SCH (10:14)
[2020-09-15] MEDS: SODIUM HYPOCHLORITE 0.25% IRRIG 473 ML BOTTLE TOP SCH (10:15)
[2020-09-15 15:56] VITALS: BP 128/75
== END 2020-09-15 16:35 | disposition home health service (06) | DRG 253 ==
LOC: N.ED 16:39 → SUATTDRO 09-06 01:51 → N.EDINP 09-06 01:51 → N.3E 09-06 05:43
PROVIDERS: ADMIT Internal Medicine; ATTEND Phlebology

== ENCOUNTER 2021-06-30 12:17 | Inpatient (IN) ==
[2021-06-30] MEDS ORDERED: DEXTROSE 50% 25 GM/50 ML SYRINGE IV ONE (13:50)
[2021-06-30] MEDS ORDERED: DEXTROSE 50% 25 GM/50 ML VIAL IV STA (14:19)
[2021-06-30] MEDS: DEXTROSE 5% NACL 0.45% 1,000 ML IV SCH ×2 (14:19→17:11)
[2021-06-30 14:44] LABS: Osmolality,Calculated 276.4 MOS/KG (273-304); Potassium 4.3 MMOL/L (3.5-5.1)
[2021-06-30] MEDS ORDERED: ONDANSETRON 4 MG/2 ML VIAL IV PRN (15:43)
[2021-06-30] MEDS ORDERED: DEXTROSE 10% 25 GM/250 ML BAG IV PRN ×2 (15:43)
[2021-06-30] MEDS ORDERED: hydrALAZINE 20 MG/1 ML VIAL IV PRN (15:43)
[2021-06-30] MEDS ORDERED: ACETAMINOPHEN 325 MG TABLET PO PRN (15:43)
[2021-06-30] MEDS ORDERED: DOCUSATE SODIUM 100 MG CAPSULE PO PRN (15:43)
[2021-06-30] MEDS ORDERED: SIMETHICONE CHEW 125 MG TABLET PO PRN (15:43)
[2021-06-30] MEDS ORDERED: GLUCAGON 1 MG VIAL IM PRN ×2 (15:43)
[2021-06-30] MEDS ORDERED: CALCIUM CARBONATE CHEW 500 MG TABLET PO PRN (15:43)
[2021-06-30 17:40] LABS: Basophils % 0.1 % (0.0-0.8); Hemoglobin 13.4 GM/DL (14.0-18.0); Immature Granulocytes % 0.5 %; Immature Granulocytes Absolute 0.05 #; Lymphocytes # 1.7 10*3/uL (1.4-4.0); Lymphocytes % 15.3 % (21.2-54.2); Mean Corpuscular HGB Conc 31.2 GM/DL (32-36); Mean Corpuscular Volume 69.1 FL (87-102); Monocytes # 1.5 10*3/uL (0.11-0.8); Monocytes % 13.6 % (1.7-12.7); NRBC # 0.03 10*3/uL; Neutrophils % 70.5 % (38.7-73.9); Platelet Count 225 T/CUMM (130-400); Red Blood Count 6.22 MC/CUMM (3.8-5.5); Red Cell Distribution Width 22.8 % (9.3-17.3)
[2021-06-30] MEDS: ENOXAPARIN 40 MG/0.4 ML SYRINGE SUBCUT SCH (17:45)
[2021-06-30 18:04] LABS: Hyaline Casts,Urine 32 /LPF (0-3); Mucus,Urine Few /LPF (Occasional); RBC,Urine 127 /HPF (0-4); Squamous Epithelial Cell,Urine Occasional /HPF (0-10)
[2021-06-30 18:11] LABS: Protein,Urine >=300 mg/dL (Negative); Urine Appearance Clear (Clear); Urine Color Dark Yellow (Yellow); Urine Specific Gravity >= 1.030 (1.001-1.035); Urine pH 5.5 (4.5-8.0)
[2021-06-30 18:12] LABS: Bilirubin,Urine Small mg/dL (Negative); Blood, Urine Large mg/dL (Negative); Glucose,Urine (UA) 100 mg/dL (Negative); Ketones,Urine Negative (Negative); Nitrite,Urine Negative (Negative)
[2021-07-01] MEDS: DEXTROSE 5% NACL 0.45% 1,000 ML IV SCH ×2 (03:49→19:03)
[2021-07-01 05:31] LABS: Basophils % 0.1 % (0.0-0.8); Eosinophils % 0.1 % (0.00-10.9); Hematocrit 36.9 VOL% (42.0-52.0); Hemoglobin 11.5 GM/DL (14.0-18.0); Immature Granulocytes % 0.4 %; Immature Granulocytes Absolute 0.03 #; Lymphocytes # 1.9 10*3/uL (1.4-4.0); Lymphocytes % 22.2 % (21.2-54.2); Mean Corpuscular HGB Conc 31.2 GM/DL (32-36); Mean Corpuscular Volume 69.2 FL (87-102); Monocytes # 0.9 10*3/uL (0.11-0.8); Monocytes % 10.5 % (1.7-12.7); NRBC # 0.02 10*3/uL; Neutrophils % 66.7 % (38.7-73.9); Platelet Count 274 T/CUMM (130-400); Red Blood Count 5.33 MC/CUMM (3.8-5.5); Red Cell Distribution Width 22.1 % (9.3-17.3); White Blood Count 8.5 T/CUMM (4-12)
[2021-07-01 05:53] LABS: Hypochromia 1+; Target Cells Few
[2021-07-01 05:54] LABS: Acanthocytes Few; Burr Cells Slight; Microcytosis 1+; Platelet Estimate Normal
[2021-07-01 05:56] LABS: Albumin 1.8 G/DL (3.4-5.0); Calcium 8.6 MG/DL (8.5-10.1); Osmolality,Calculated 273.4 MOS/KG (273-304); Potassium 3.8 MMOL/L (3.5-5.1); Total Protein 6.3 G/DL (6.4-8.2)
[2021-07-01] MEDS: PANTOPRAZOLE 40 MG TABLET PO SCH (08:57)
[2021-07-01] MEDS ORDERED: GLUCAGON 1 MG VIAL IM PRN (12:41)
[2021-07-01] MEDS ORDERED: DEXTROSE 50% 25 GM/50 ML VIAL IV PRN (12:41)
[2021-07-01] MEDS ORDERED: FUROSEMIDE 40 MG/4 ML VIAL IV ONE (14:30)
[2021-07-01] MEDS: INSULIN REGULAR 100 UNIT/ML SUBCUT SCH ×2 (16:26→21:11)
[2021-07-01] MEDS: SODIUM CHLORIDE 0.9% 1,000 ML IV SCH (16:27)
[2021-07-01] MEDS: CETIRIZINE 10 MG TABLET PO SCH (19:02)
[2021-07-01] MEDS: ROSUVASTATIN 20 MG TABLET PO SCH (21:09)
[2021-07-01] MEDS: METOPROLOL SUCCINATE XL 100 MG TABLET PO SCH (21:11)
[2021-07-01] MEDS: ENOXAPARIN 40 MG/0.4 ML SYRINGE SUBCUT SCH (21:11)
[2021-07-01] MEDS ORDERED: GABAPENTIN 300 MG CAPSULE PO SCH (23:00)
[2021-07-02 05:30] LABS: Basophils % 0.4 % (0.0-0.8); Eosinophils % 0.4 % (0.00-10.9); Hematocrit 38.8 VOL% (42.0-52.0); Hemoglobin 11.8 GM/DL (14.0-18.0); Immature Granulocytes % 0.3 %; Immature Granulocytes Absolute 0.02 #; Lymphocytes # 2.3 10*3/uL (1.4-4.0); Lymphocytes % 33.4 % (21.2-54.2); Mean Corpuscular HGB Conc 30.4 GM/DL (32-36); Mean Corpuscular Volume 70.3 FL (87-102); Monocytes # 0.9 10*3/uL (0.11-0.8); Monocytes % 13.6 % (1.7-12.7); NRBC # 0.02 10*3/uL; Neutrophils % 51.9 % (38.7-73.9); Platelet Count 241 T/CUMM (130-400); Red Blood Count 5.52 MC/CUMM (3.8-5.5); Red Cell Distribution Width 22.4 % (9.3-17.3); White Blood Count 6.8 T/CUMM (4-12)
[2021-07-02 05:44] LABS: Calcium 8.6 MG/DL (8.5-10.1); Osmolality,Calculated 276.8 MOS/KG (273-304); Potassium 3.3 MMOL/L (3.5-5.1)
[2021-07-02 05:57] LABS: Hypochromia 1+; Microcytosis 1+; Polychromasia Slight; Target Cells Slight
[2021-07-02 05:58] LABS: Platelet Estimate Normal
[2021-07-02] MEDS: SODIUM CHLORIDE 0.9% 1,000 ML IV SCH (06:05)
[2021-07-02] MEDS ORDERED: ASPIRIN EC 81 MG TABLET PO SCH (09:00)
[2021-07-02] MEDS: PANTOPRAZOLE 40 MG TABLET PO SCH (09:10)
[2021-07-02] MEDS: METOPROLOL SUCCINATE XL 100 MG TABLET PO SCH ×2 (09:10→20:38)
[2021-07-02] MEDS: FENOFIBRATE 145 MG TABLET PO SCH (09:10)
[2021-07-02] MEDS: CLOPIDOGREL 75 MG TABLET PO SCH (09:10)
[2021-07-02] MEDS: MONTELUKAST 10 MG TABLET PO SCH (09:10)
[2021-07-02] MEDS: INSULIN REGULAR 100 UNIT/ML SUBCUT SCH ×4 (09:10→20:38)
[2021-07-02] MEDS ORDERED: POTASSIUM CHLORIDE 20 MEQ TABLET PO ONE (11:00)
[2021-07-02] MEDS: SKIN HEALING OINT (AQUAPHOR) 50 GM TUBE TOP SCH (16:40)
[2021-07-02] MEDS: CETIRIZINE 10 MG TABLET PO SCH (18:11)
[2021-07-02] MEDS: ENOXAPARIN 40 MG/0.4 ML SYRINGE SUBCUT SCH (20:38)
[2021-07-02] MEDS: ROSUVASTATIN 20 MG TABLET PO SCH (20:38)
[2021-07-03] MEDS: NICOTINE 14 MG/24 HR PATCH TRANSDERM SCH ×2 (00:02→08:59)
[2021-07-03 05:15] LABS: Basophils % 0.4 % (0.0-0.8); Eosinophils # 0.1 10*3/uL (0.0-0.87); Eosinophils % 1.6 % (0.00-10.9); Hematocrit 39.9 VOL% (42.0-52.0); Hemoglobin 12.2 GM/DL (14.0-18.0); Immature Granulocytes % 0.4 %; Immature Granulocytes Absolute 0.03 #; Lymphocytes # 2.8 10*3/uL (1.4-4.0); Lymphocytes % 37.2 % (21.2-54.2); Mean Corpuscular HGB Conc 30.6 GM/DL (32-36); Mean Corpuscular Volume 70.9 FL (87-102); Mean Platelet Volume 10.5 FL (9.6-12.0); NRBC # 0.02 10*3/uL; Neutrophils % 47.4 % (38.7-73.9); Platelet Count 276 T/CUMM (130-400); Red Blood Count 5.63 MC/CUMM (3.8-5.5); Red Cell Distribution Width 22.6 % (9.3-17.3); White Blood Count 7.5 T/CUMM (4-12)
[2021-07-03 05:38] LABS: Blood Urea Nitrogen 15 MG/DL (7-18); Carbon Dioxide 26 MMOL/L (21-32); Chloride 103 MMOL/L (98-107); Glucose 208 MG/DL (74-106); HDL Cholesterol 11 MG/DL (40-60); Osmolality,Calculated 279.8 MOS/KG (273-304); Risk Ratio 4.55; Sodium 137 MMOL/L (136-145); Triglycerides 76 MG/DL (2-150); VLDL Cholesterol 15.2 MG/DL
[2021-07-03 05:58] LABS: Cholesterol < 50 MG/DL (50-200)
[2021-07-03] MEDS: CLOPIDOGREL 75 MG TABLET PO SCH (08:57)
[2021-07-03] MEDS: PANTOPRAZOLE 40 MG TABLET PO SCH (08:57)
[2021-07-03] MEDS: METOPROLOL SUCCINATE XL 100 MG TABLET PO SCH (08:58)
[2021-07-03] MEDS: FENOFIBRATE 145 MG TABLET PO SCH (08:58)
[2021-07-03] MEDS: SKIN HEALING OINT (AQUAPHOR) 50 GM TUBE TOP SCH (08:59)
[2021-07-03] MEDS ORDERED: CHOLECALCIFEROL 5,000 UNIT TABLET PO SCH (09:00)
[2021-07-03] MEDS ORDERED: FERRIC GLUCONATE COMPLEX 125 MG in SODIUM CHLORIDE 0.9% 100 ML IV SCH (09:00)
[2021-07-03] MEDS ORDERED: FUROSEMIDE 40 MG TABLET PO SCH (09:00)
[2021-07-03] MEDS: MONTELUKAST 10 MG TABLET PO SCH (09:17)
[2021-07-03] MEDS: INSULIN REGULAR 100 UNIT/ML SUBCUT SCH ×2 (09:17→12:20)
[2021-07-03 12:23] VITALS: BP 111/70
== END 2021-07-03 14:20 | disposition home health service (06) | DRG 637 ==
LOC: EDSEX → EDBD → EDUNIT# → SUATTDRO → N.ED 12:17 → N.EDINP 18:07 → N.5E 18:17
PROVIDERS: ADMIT Internal Medicine; ATTEND Internal Medicine

== ENCOUNTER 2021-09-28 11:20 | Inpatient (IN) ==
[2021-09-28] MEDS ORDERED: SODIUM CHLORIDE 0.9% 1,000 ML IV STA (11:30)
[2021-09-28 11:49] LABS: Arterial Base Excess iSTAT -13 MMOL/L (-2.5-2.5); Arterial O2 Saturation iSTAT 99 % (95-100); Arterial PCO2 iSTAT 16 MM HG (35-48); Arterial PO2 iSTAT 125 MM HG (80-95); Arterial Total CO2 iSTAT 9 MMO/L (23-27); Arterial pH iSTAT 7.346 (7.35-7.45)
[2021-09-28 11:53] LABS: Basophils % 0.2 % (0.0-0.8); Eosinophils % 0.1 % (0.00-10.9); Hematocrit 49.6 VOL% (42.0-52.0); Hemoglobin 15.4 GM/DL (14.0-18.0); Immature Granulocytes % 0.5 %; Immature Granulocytes Absolute 0.06 #; Lymphocytes # 0.9 10*3/uL (1.4-4.0); Lymphocytes % 7.9 % (21.2-54.2); Monocytes # 0.5 10*3/uL (0.11-0.8); Monocytes % 4.5 % (1.7-12.7); NRBC # 0.09 10*3/uL; Neutrophils % 86.8 % (38.7-73.9); Platelet Count 68 T/CUMM (130-400); Red Blood Count 6.44 MC/CUMM (3.8-5.5); Red Cell Distribution Width 26.5 % (9.3-17.3); White Blood Count 11.4 T/CUMM (4-12)
[2021-09-28 12:10] LABS: Alanine Aminotransferase 951 U/L (16-61); Albumin 2.7 G/DL (3.4-5.0); Alkaline Phosphatase 167 U/L (45-117); Aspartate Amino Transferase 800 U/L (0-37); Blood Urea Nitrogen 65 MG/DL (7-18); Calcium 8.6 MG/DL (8.5-10.1); Carbon Dioxide 15 MMOL/L (21-32); Chloride 89 MMOL/L (98-107); Osmolality,Calculated 292.6 MOS/KG (273-304); Potassium 5.8 MMOL/L (3.5-5.1); Sodium 124 MMOL/L (136-145)
[2021-09-28 12:20] LABS: Glucose 557 MG/DL (74-106)
[2021-09-28] MEDS ORDERED: LACTATED RINGERS 1,000 ML IV ONE (12:21)
[2021-09-28] MEDS ORDERED: PIPERACILLIN/TAZOBACTAM 3,375 MG in SODIUM CHLORIDE 0.9% 100 ML IV STA (12:29)
[2021-09-28] MEDS ORDERED: SODIUM BICARB INJ 100 MEQ in STERILE WATER INJ 400 ML IV PRN (12:31)
[2021-09-28] MEDS ORDERED: MAGNESIUM SULF RIDER 2 GM/50 ML PREMIX IV PRN (12:31)
[2021-09-28] MEDS ORDERED: MAGNESIUM SULF RIDER 4 GM/100 ML PREMIX IV PRN (12:31)
[2021-09-28] MEDS ORDERED: SODIUM PHOSPHATE IV PRN (12:31)
[2021-09-28] MEDS ORDERED: SODIUM CHLORIDE 0.9% 1,000 ML IV ONE (12:31)
[2021-09-28] MEDS ORDERED: SODIUM CHLORIDE 0.9% IV PRN (12:31)
[2021-09-28] MEDS ORDERED: INSULIN REGULAR 100 UNIT/ML IV ONE (12:31)
[2021-09-28] MEDS ORDERED: DEXTROSE 10% 250 ML BAG IV PRN ×2 (12:51)
[2021-09-28 12:52] LABS: Urine Appearance Cloudy (Clear); Urine Color Yellow (Yellow); Urine Specific Gravity 1.025 (1.001-1.035)
[2021-09-28 12:53] LABS: Bilirubin,Urine Moderate mg/dL (Negative); Blood, Urine Small mg/dL (Negative); Glucose,Urine (UA) >=1000 mg/dL (Negative); Ketones,Urine Trace mg/dL (Negative); Nitrite,Urine Negative (Negative); Protein,Urine 30 mg/dL (Negative)
[2021-09-28 12:53] LABS: Phosphorous 5.6 MG/DL (2.5-4.9)
[2021-09-28 12:58] LABS: Bacteria,Urine Many /HPF (Few); Hyaline Casts,Urine 128 /LPF (0-3); RBC,Urine 13 /HPF (0-4); Squamous Epithelial Cell,Urine Moderate /HPF (0-10)
[2021-09-28 13:13] LABS: PT Patient Result 39.8 SECS (10.1-12.1); Partial Thromboplastin Time 44.4 SECS (23.7-32.9)
[2021-09-28 13:48] LABS: Barbiturates Screen,Urine Negative (Negative); Benzodiazepines Screen,Urine Negative (Negative); Cannabinoid Screen,Urine Negative (Negative); Opiate Screen,Urine Negative (Negative); Phencyclidine Screen,Urine Negative (Negative)
[2021-09-28 13:54] LABS: Hepatitis B Core IgM Quant 0.15 Index; Hepatitis B Surface Ag Quant < 0.10 Index; Hepatitis B Surface Ag Result Non-Reactive (NonReactive); Hepatitis C Virus Ab Quant 0.06 Index; Hepatitis C Virus Ab Result Non-Reactive (NonReactive)
[2021-09-28] MEDS ORDERED: ENOXAPARIN 30 MG/0.3 ML SYRINGE SUBCUT SCH (14:00)
[2021-09-28] MEDS ORDERED: MORPHINE 2 MG/1 ML SYRINGE IV ONE (14:31)
[2021-09-28] MEDS: INSULIN REGULAR DRIP 100 ML IV SCH (14:55)
[2021-09-28 15:21] LABS: Calcium 7.6 MG/DL (8.5-10.1); Osmolality,Calculated 296.1 MOS/KG (273-304); Potassium 4.9 MMOL/L (3.5-5.1)
[2021-09-28] MEDS: SODIUM CHLORIDE 0.9% 1,000 ML IV SCH ×2 (15:37→16:20)
[2021-09-28] MEDS: cefTRIAXone 1,000 MG in SODIUM CHLORIDE 0.9% 100 ML IV SCH (15:37)
[2021-09-28 17:10] LABS: Calcium 7.3 MG/DL (8.5-10.1); Osmolality,Calculated 295.8 MOS/KG (273-304); Potassium 4.4 MMOL/L (3.5-5.1)
[2021-09-28] MEDS ORDERED: SODIUM CHLORIDE 0.9% 1,000 ML IV SCH (18:00)
[2021-09-28] MEDS ORDERED: MORPHINE 2 MG/1 ML SYRINGE IV PRN (18:18)
[2021-09-28] MEDS ORDERED: ONDANSETRON 4 MG/2 ML VIAL IV PRN (18:18)
[2021-09-28 18:33] LABS: Arterial Base Excess iSTAT -20 MMOL/L (-2.5-2.5); Arterial Bicarbonate iSTAT 5.4 MMOL/L (20-26); Arterial O2 Saturation iSTAT 99 % (95-100); Arterial PCO2 iSTAT 14 MM HG (35-48); Arterial PO2 iSTAT 145 MM HG (80-95); Arterial Total CO2 iSTAT 6 MMO/L (23-27); Arterial pH iSTAT 7.193 (7.35-7.45)
[2021-09-28] MEDS ORDERED: SODIUM BICARBONATE 50 MEQ/50 ML VIAL IV ONE (19:00)
[2021-09-28] MEDS: SODIUM BICARB INJ 150 MEQ in STERILE WATER INJ 1,000 ML IV SCH (19:31)
[2021-09-28 20:43] LABS: Albumin 1.9 G/DL (3.4-5.0); Bilirubin,Direct 3.54 MG/DL (0.0-0.20); Bilirubin,Indirect 0.8 MG/DL (0.0-1.0); Bilirubin,Total 4.3 MG/DL (0.20-1.00); Total Protein 5.1 G/DL (6.4-8.2)
[2021-09-28 20:46] LABS: Calcium 7.6 MG/DL (8.5-10.1); Osmolality,Calculated 297.1 MOS/KG (273-304); Potassium 4.1 MMOL/L (3.5-5.1)
[2021-09-28 20:58] LABS: Arterial Base Excess iSTAT -13 MMOL/L (-2.5-2.5); Arterial Bicarbonate iSTAT 10.8 MMOL/L (20-26); Arterial O2 Saturation iSTAT 98 % (95-100); Arterial PCO2 iSTAT 22 MM HG (35-48); Arterial PO2 iSTAT 103 MM HG (80-95); Arterial Total CO2 iSTAT 11 MMO/L (23-27); Arterial pH iSTAT 7.302 (7.35-7.45)
[2021-09-28] MEDS ORDERED: ROSUVASTATIN 10 MG TABLET PO SCH (21:00)
[2021-09-28] MEDS: SODIUM CHLOR 0.9% KCL 20 MEQ 20 MEQ/1,000 ML BAG IV SCH (22:25)
[2021-09-29 00:57] LABS: Calcium 7.3 MG/DL (8.5-10.1); Osmolality,Calculated 296.8 MOS/KG (273-304); Potassium 4.8 MMOL/L (3.5-5.1)
[2021-09-29] MEDS ORDERED: DEXT 5% NACL 0.45% KCL 20 MEQ 20 MEQ/1,000 ML BAG IV SCH (01:45)
[2021-09-29 03:47] LABS: Arterial Base Excess iSTAT -5 MMOL/L (-2.5-2.5); Arterial Bicarbonate iSTAT 17.3 MMOL/L (20-26); Arterial O2 Saturation iSTAT 99 % (95-100); Arterial PCO2 iSTAT 26 MM HG (35-48); Arterial PO2 iSTAT 134 MM HG (80-95); Arterial Total CO2 iSTAT 18 MMO/L (23-27); Arterial pH iSTAT 7.427 (7.35-7.45)
[2021-09-29 04:32] LABS: Basophils % 0.1 % (0.0-0.8); Hematocrit 40.7 VOL% (42.0-52.0); Hemoglobin 13.2 GM/DL (14.0-18.0); Immature Granulocytes % 0.3 %; Immature Granulocytes Absolute 0.04 #; Lymphocytes % 8.6 % (21.2-54.2); Mean Corpuscular HGB Conc 32.4 GM/DL (32-36); Mean Corpuscular Volume 75.5 FL (87-102); Monocytes # 0.7 10*3/uL (0.11-0.8); Monocytes % 6.1 % (1.7-12.7); NRBC # 0.09 10*3/uL; Neutrophils % 84.9 % (38.7-73.9); Platelet Count 50 T/CUMM (130-400); Red Blood Count 5.39 MC/CUMM (3.8-5.5); Red Cell Distribution Width 25.9 % (9.3-17.3); White Blood Count 11.6 T/CUMM (4-12)
[2021-09-29 04:48] LABS: Platelet Estimate Decreased
[2021-09-29 04:49] LABS: Cholesterol 63 MG/DL (50-200); HDL Cholesterol < 10 MG/DL (40-60); Triglycerides 100 MG/DL (2-150)
[2021-09-29 04:54] LABS: Bilirubin,Direct 3.4 MG/DL (0.0-0.20); Bilirubin,Indirect 0.7 MG/DL (0.0-1.0); Bilirubin,Total 4.1 MG/DL (0.20-1.00); Total Protein 5.1 G/DL (6.4-8.2)
[2021-09-29 05:26] LABS: Calcium 7.4 MG/DL (8.5-10.1); Osmolality,Calculated 294.1 MOS/KG (273-304); Potassium 4.6 MMOL/L (3.5-5.1)
[2021-09-29] MEDS ORDERED: SODIUM CHLORIDE 0.45% 1,000 ML IV SCH (06:00)
[2021-09-29] MEDS: INSULIN REGULAR DRIP 100 ML IV SCH ×2 (07:53→18:32)
[2021-09-29] MEDS: SODIUM BICARB INJ 150 MEQ in STERILE WATER INJ 1,000 ML IV SCH ×2 (07:53→20:01)
[2021-09-29] MEDS: SODIUM CHLOR 0.9% KCL 20 MEQ 20 MEQ/1,000 ML BAG IV SCH (07:54)
[2021-09-29] MEDS: PANTOPRAZOLE 40 MG TABLET PO SCH (09:10)
[2021-09-29] MEDS: CLOPIDOGREL 75 MG TABLET PO SCH (09:10)
[2021-09-29] MEDS: cefTRIAXone 1,000 MG in SODIUM CHLORIDE 0.9% 100 ML IV SCH (18:32)
[2021-09-29] MEDS: INSULIN REGULAR 100 UNIT/ML SUBCUT SCH ×2 (20:18→22:17)
[2021-09-30] MEDS: INSULIN REGULAR 100 UNIT/ML SUBCUT SCH ×5 (02:42→20:38)
[2021-09-30 04:30] LABS: Basophils % 0.1 % (0.0-0.8); Eosinophils % 0.1 % (0.00-10.9); Hematocrit 36.6 VOL% (42.0-52.0); Hemoglobin 12.1 GM/DL (14.0-18.0); Immature Granulocytes % 0.6 %; Immature Granulocytes Absolute 0.07 #; Mean Corpuscular HGB Conc 33.1 GM/DL (32-36); Mean Corpuscular Volume 73.5 FL (87-102); Monocytes # 0.6 10*3/uL (0.11-0.8); Monocytes % 5.1 % (1.7-12.7); NRBC # 0.08 10*3/uL; Neutrophils % 85.1 % (38.7-73.9); Red Blood Count 4.98 MC/CUMM (3.8-5.5); Red Cell Distribution Width 25.3 % (9.3-17.3); White Blood Count 11.3 T/CUMM (4-12)
[2021-09-30 04:33] LABS: Platelet Count 39 T/CUMM (130-400)
[2021-09-30 04:49] LABS: Platelet Estimate Decreased
[2021-09-30 04:57] LABS: Alanine Aminotransferase 579 U/L (16-61); Albumin 1.6 G/DL (3.4-5.0); Alkaline Phosphatase 120 U/L (45-117); Aspartate Amino Transferase 649 U/L (0-37); Blood Urea Nitrogen 54 MG/DL (7-18); Calcium 7.1 MG/DL (8.5-10.1); Carbon Dioxide 27 MMOL/L (21-32); Chloride 95 MMOL/L (98-107); Glucose 156 MG/DL (74-106); Osmolality,Calculated 285.2 MOS/KG (273-304); Potassium 3.7 MMOL/L (3.5-5.1); Sodium 134 MMOL/L (136-145); Total Protein 4.6 G/DL (6.4-8.2)
[2021-09-30] MEDS: POTASSIUM CHLORIDE RIDER 10 MEQ/100 ML PREMIX IV PRN ×2 (05:12→06:12)
[2021-09-30] MEDS: SODIUM BICARB INJ 150 MEQ in STERILE WATER INJ 1,000 ML IV SCH (07:50)
[2021-09-30] MEDS: PANTOPRAZOLE 40 MG TABLET PO SCH (08:59)
[2021-09-30] MEDS: CLOPIDOGREL 75 MG TABLET PO SCH (08:59)
[2021-09-30] MEDS: SODIUM CHLORIDE 0.45% 1,000 ML IV SCH ×2 (09:16→23:44)
[2021-09-30 10:33] LABS: INR 3.3; PT Patient Result 33.4 SECS (10.1-12.1)
[2021-09-30] MEDS: cefTRIAXone 1,000 MG in SODIUM CHLORIDE 0.9% 100 ML IV SCH (16:14)
[2021-09-30] MEDS: MENTHOL/ZINC OXIDE OINT 71 GM JAR TOP SCH ×2 (17:11→21:57)
[2021-10-01] MEDS: INSULIN REGULAR 100 UNIT/ML SUBCUT SCH ×7 (00:40→23:48)
[2021-10-01] MEDS: MONTELUKAST 10 MG TABLET PO SCH (08:25)
[2021-10-01] MEDS: PANTOPRAZOLE 40 MG TABLET PO SCH (08:25)
[2021-10-01] MEDS: FENOFIBRATE 145 MG TABLET PO SCH (08:25)
[2021-10-01] MEDS: CALCIUM (CARBONATE)/VITAMIN D 600 MG-400 UNIT TABLET PO SCH (08:25)
[2021-10-01] MEDS: CLOPIDOGREL 75 MG TABLET PO SCH (08:25)
[2021-10-01] MEDS: MENTHOL/ZINC OXIDE OINT 71 GM JAR TOP SCH ×2 (08:25→20:08)
[2021-10-01] MEDS: cefTRIAXone 1,000 MG in SODIUM CHLORIDE 0.9% 100 ML IV SCH (09:03)
[2021-10-01 09:10] LABS: Eosinophils % 0.2 % (0.00-10.9); Hematocrit 37.9 VOL% (42.0-52.0); Hemoglobin 12.5 GM/DL (14.0-18.0); Immature Granulocytes % 0.3 %; Immature Granulocytes Absolute 0.03 #; Lymphocytes # 1.3 10*3/uL (1.4-4.0); Mean Corpuscular Volume 73.3 FL (87-102); Monocytes # 0.6 10*3/uL (0.11-0.8); Monocytes % 6.6 % (1.7-12.7); NRBC # 0.03 10*3/uL; Neutrophils % 77.9 % (38.7-73.9); Platelet Count 42 T/CUMM (130-400); Red Blood Count 5.17 MC/CUMM (3.8-5.5); Red Cell Distribution Width 25.9 % (9.3-17.3); White Blood Count 8.6 T/CUMM (4-12)
[2021-10-01 09:27] LABS: Platelet Estimate Decreased
[2021-10-01 09:29] LABS: Albumin 1.6 G/DL (3.4-5.0); Calcium 7.9 MG/DL (8.5-10.1); Osmolality,Calculated 273.5 MOS/KG (273-304); Total Protein 4.9 G/DL (6.4-8.2)
[2021-10-01] MEDS: POTASSIUM CHLORIDE RIDER 20 MEQ/100 ML PREMIX IV PRN ×2 (10:13→14:33)
[2021-10-01] MEDS: SODIUM CHLORIDE 0.45% 1,000 ML IV SCH (14:31)
[2021-10-01 18:29] LABS: Albumin 1.8 G/DL (3.4-5.0); Bilirubin,Total 5.7 MG/DL (0.20-1.00); Calcium 7.6 MG/DL (8.5-10.1); Osmolality,Calculated 274.7 MOS/KG (273-304); Potassium 3.6 MMOL/L (3.5-5.1); Total Protein 5.3 G/DL (6.4-8.2)
[2021-10-02 03:22] LABS: Basophils % 0.2 % (0.0-0.8); Eosinophils % 0.2 % (0.00-10.9); Hematocrit 37.5 VOL% (42.0-52.0); Hemoglobin 12.6 GM/DL (14.0-18.0); Lymphocytes # 1.3 10*3/uL (1.4-4.0); Lymphocytes % 13.7 % (21.2-54.2); Mean Corpuscular HGB Conc 33.6 GM/DL (32-36); Mean Corpuscular Volume 73.4 FL (87-102); Monocytes # 0.7 10*3/uL (0.11-0.8); Neutrophils % 78.6 % (38.7-73.9); Platelet Count 43 T/CUMM (130-400); Red Blood Count 5.11 MC/CUMM (3.8-5.5); Red Cell Distribution Width 25.2 % (9.3-17.3); White Blood Count 9.2 T/CUMM (4-12)
[2021-10-02] MEDS: INSULIN REGULAR 100 UNIT/ML SUBCUT SCH ×5 (03:36→21:36)
[2021-10-02 03:37] LABS: Calcium 7.6 MG/DL (8.5-10.1); Osmolality,Calculated 273.7 MOS/KG (273-304); Potassium 3.5 MMOL/L (3.5-5.1)
[2021-10-02 03:42] LABS: Lymphocytes 11 % (20-55); Platelet Estimate Decreased
[2021-10-02] MEDS: METOPROLOL SUCCINATE XL 100 MG TABLET PO SCH ×2 (03:59→21:36)
[2021-10-02] MEDS ORDERED: FUROSEMIDE 40 MG/4 ML VIAL IV ONE ×2 (04:00→08:30)
[2021-10-02] MEDS: FENOFIBRATE 145 MG TABLET PO SCH (08:18)
[2021-10-02] MEDS: CALCIUM (CARBONATE)/VITAMIN D 600 MG-400 UNIT TABLET PO SCH (08:18)
[2021-10-02] MEDS: MENTHOL/ZINC OXIDE OINT 71 GM JAR TOP SCH ×2 (08:18→21:36)
[2021-10-02] MEDS: MONTELUKAST 10 MG TABLET PO SCH (08:18)
[2021-10-02] MEDS: PANTOPRAZOLE 40 MG TABLET PO SCH (08:18)
[2021-10-02] MEDS: CLOPIDOGREL 75 MG TABLET PO SCH (08:18)
[2021-10-02] MEDS: cefTRIAXone 1,000 MG in SODIUM CHLORIDE 0.9% 100 ML IV SCH (08:19)
[2021-10-02] MEDS: POTASSIUM CHLORIDE 20 MEQ TABLET PO SCH (08:35)
[2021-10-02] MEDS ORDERED: FUROSEMIDE 40 MG TABLET PO SCH (09:00)
[2021-10-02 09:21] LABS: Albumin 1.7 G/DL (3.4-5.0); Bilirubin,Direct 5.07 MG/DL (0.0-0.20); Bilirubin,Indirect 1.1 MG/DL (0.0-1.0); Bilirubin,Total 6.2 MG/DL (0.20-1.00); Total Protein 5.3 G/DL (6.4-8.2)
[2021-10-02 10:33] LABS: INR 2.6
[2021-10-02] MEDS: APIXABAN 5 MG TABLET PO SCH (21:35)
[2021-10-03] MEDS: INSULIN REGULAR 100 UNIT/ML SUBCUT SCH ×6 (01:28→20:07)
[2021-10-03 05:48] LABS: PT Patient Result 53.7 SECS (10.1-12.1)
[2021-10-03 05:55] LABS: Albumin 1.6 G/DL (3.4-5.0); Bilirubin,Direct 5.75 MG/DL (0.0-0.20); Bilirubin,Indirect 1.7 MG/DL (0.0-1.0); Bilirubin,Total 7.4 MG/DL (0.20-1.00); Total Protein 5.5 G/DL (6.4-8.2)
[2021-10-03 06:00] LABS: INR 5.5
[2021-10-03 06:01] LABS: Calcium 8.5 MG/DL (8.5-10.1); Osmolality,Calculated 276.5 MOS/KG (273-304)
[2021-10-03 07:46] LABS: PT Patient Result 56.7 SECS (10.1-12.1)
[2021-10-03 07:48] LABS: INR 5.8
[2021-10-03] MEDS: FENOFIBRATE 145 MG TABLET PO SCH (08:42)
[2021-10-03] MEDS: MONTELUKAST 10 MG TABLET PO SCH (08:43)
[2021-10-03] MEDS: CALCIUM (CARBONATE)/VITAMIN D 600 MG-400 UNIT TABLET PO SCH (08:43)
[2021-10-03] MEDS: POTASSIUM CHLORIDE 20 MEQ TABLET PO SCH (08:43)
[2021-10-03] MEDS: MENTHOL/ZINC OXIDE OINT 71 GM JAR TOP SCH ×2 (08:43→21:21)
[2021-10-03] MEDS: PANTOPRAZOLE 40 MG TABLET PO SCH (08:43)
[2021-10-03] MEDS: METOPROLOL SUCCINATE XL 100 MG TABLET PO SCH ×2 (08:46→20:12)
[2021-10-03] MEDS ORDERED: LACTATED RINGERS 1,000 ML IV ONE (08:59)
[2021-10-03] MEDS ORDERED: FUROSEMIDE 40 MG TABLET PO SCH (09:00)
[2021-10-03 09:52] LABS: Basophils % 0.1 % (0.0-0.8); Eosinophils % 0.2 % (0.00-10.9); Hematocrit 40.2 VOL% (42.0-52.0); Immature Granulocytes % 0.5 %; Immature Granulocytes Absolute 0.04 #; Lymphocytes # 1.7 10*3/uL (1.4-4.0); Lymphocytes % 19.6 % (21.2-54.2); Mean Corpuscular HGB Conc 32.3 GM/DL (32-36); Mean Corpuscular Volume 75.3 FL (87-102); Monocytes # 0.9 10*3/uL (0.11-0.8); NRBC # 0.06 10*3/uL; Neutrophils % 69.6 % (38.7-73.9); Platelet Count 44 T/CUMM (130-400); Red Blood Count 5.34 MC/CUMM (3.8-5.5); Red Cell Distribution Width 25.8 % (9.3-17.3); White Blood Count 8.7 T/CUMM (4-12)
[2021-10-03] MEDS: CLOPIDOGREL 75 MG TABLET PO SCH (10:09)
[2021-10-03 10:46] LABS: Target Cells Few
[2021-10-03 10:47] LABS: Platelet Estimate Decreased; Tear Drop Cells Slight
[2021-10-04] MEDS ORDERED: SODIUM CHLORIDE 0.9% 500 ML IV ONE (00:17)
[2021-10-04] MEDS: INSULIN REGULAR 100 UNIT/ML SUBCUT SCH ×6 (01:29→20:13)
[2021-10-04 05:08] LABS: Basophils % 0.1 % (0.0-0.8); Eosinophils % 0.1 % (0.00-10.9); Hemoglobin 12.4 GM/DL (14.0-18.0); Immature Granulocytes % 0.6 %; Immature Granulocytes Absolute 0.06 #; Lymphocytes # 1.9 10*3/uL (1.4-4.0); Lymphocytes % 20.7 % (21.2-54.2); Mean Corpuscular HGB Conc 32.6 GM/DL (32-36); Mean Corpuscular Volume 74.5 FL (87-102); Monocytes % 10.2 % (1.7-12.7); NRBC # 0.12 10*3/uL; Neutrophils % 68.3 % (38.7-73.9); Platelet Count 69 T/CUMM (130-400); Red Cell Distribution Width 25.3 % (9.3-17.3); White Blood Count 9.4 T/CUMM (4-12)
[2021-10-04 05:26] LABS: PT Patient Result 65.5 SECS (10.1-12.1); Partial Thromboplastin Time 43.5 SECS (23.7-32.9)
[2021-10-04 05:35] LABS: INR 6.8
[2021-10-04 05:54] LABS: Albumin 1.7 G/DL (3.4-5.0); Bilirubin,Total 8.3 MG/DL (0.20-1.00); Calcium 8.3 MG/DL (8.5-10.1); Osmolality,Calculated 278.4 MOS/KG (273-304); Potassium 4.2 MMOL/L (3.5-5.1); Total Protein 5.2 G/DL (6.4-8.2)
[2021-10-04] MEDS: CLOPIDOGREL 75 MG TABLET PO SCH (08:01)
[2021-10-04] MEDS: POTASSIUM CHLORIDE 20 MEQ TABLET PO SCH (08:01)
[2021-10-04] MEDS: FENOFIBRATE 145 MG TABLET PO SCH (08:01)
[2021-10-04] MEDS: CALCIUM (CARBONATE)/VITAMIN D 600 MG-400 UNIT TABLET PO SCH (08:01)
[2021-10-04] MEDS: METOPROLOL SUCCINATE XL 100 MG TABLET PO SCH (08:02)
[2021-10-04] MEDS: MONTELUKAST 10 MG TABLET PO SCH (08:02)
[2021-10-04] MEDS: PANTOPRAZOLE 40 MG TABLET PO SCH (08:02)
[2021-10-04] MEDS: MENTHOL/ZINC OXIDE OINT 71 GM JAR TOP SCH ×2 (08:02→21:20)
[2021-10-05] MEDS: INSULIN REGULAR 100 UNIT/ML SUBCUT SCH ×6 (00:33→20:42)
[2021-10-05 05:12] LABS: Eosinophils % 0.3 % (0.00-10.9); Hemoglobin 12.1 GM/DL (14.0-18.0); Immature Granulocytes % 0.9 %; Immature Granulocytes Absolute 0.08 #; Lymphocytes # 1.4 10*3/uL (1.4-4.0); Lymphocytes % 15.2 % (21.2-54.2); Mean Corpuscular HGB Conc 33.6 GM/DL (32-36); Mean Corpuscular Volume 73.9 FL (87-102); Monocytes # 0.7 10*3/uL (0.11-0.8); Monocytes % 7.2 % (1.7-12.7); NRBC # 0.18 10*3/uL; Neutrophils % 76.4 % (38.7-73.9); Red Blood Count 4.87 MC/CUMM (3.8-5.5); Red Cell Distribution Width 24.9 % (9.3-17.3); White Blood Count 9.1 T/CUMM (4-12)
[2021-10-05 05:19] LABS: Platelet Count 99 T/CUMM (130-400)
[2021-10-05 05:22] LABS: INR 2.9; PT Patient Result 29.9 SECS (10.1-12.1); Partial Thromboplastin Time 40.5 SECS (23.7-32.9)
[2021-10-05 05:33] LABS: Albumin 1.7 G/DL (3.4-5.0); Bilirubin,Total 8.3 MG/DL (0.20-1.00); Calcium 8.3 MG/DL (8.5-10.1); Osmolality,Calculated 282.2 MOS/KG (273-304); Potassium 4.3 MMOL/L (3.5-5.1); Total Protein 5.3 G/DL (6.4-8.2)
[2021-10-05] MEDS: POTASSIUM CHLORIDE 20 MEQ TABLET PO SCH (08:48)
[2021-10-05] MEDS: FENOFIBRATE 145 MG TABLET PO SCH (08:48)
[2021-10-05] MEDS: CLOPIDOGREL 75 MG TABLET PO SCH (08:49)
[2021-10-05] MEDS: MONTELUKAST 10 MG TABLET PO SCH (08:49)
[2021-10-05] MEDS: PANTOPRAZOLE 40 MG TABLET PO SCH (08:49)
[2021-10-05] MEDS: CALCIUM (CARBONATE)/VITAMIN D 600 MG-400 UNIT TABLET PO SCH (08:49)
[2021-10-05] MEDS: MENTHOL/ZINC OXIDE OINT 71 GM JAR TOP SCH ×2 (08:50→20:41)
[2021-10-06] MEDS: INSULIN REGULAR 100 UNIT/ML SUBCUT SCH ×6 (00:51→22:35)
[2021-10-06 06:10] LABS: Basophils % 0.2 % (0.0-0.8); Eosinophils % 0.2 % (0.00-10.9); Hematocrit 35.9 VOL% (42.0-52.0); Hemoglobin 12.1 GM/DL (14.0-18.0); Immature Granulocytes % 0.6 %; Immature Granulocytes Absolute 0.03 #; Lymphocytes % 20.2 % (21.2-54.2); Mean Corpuscular HGB Conc 33.7 GM/DL (32-36); Monocytes # 0.4 10*3/uL (0.11-0.8); Monocytes % 8.3 % (1.7-12.7); NRBC # 0.31 10*3/uL; Neutrophils % 70.5 % (38.7-73.9); Red Blood Count 4.85 MC/CUMM (3.8-5.5); Red Cell Distribution Width 24.9 % (9.3-17.3); White Blood Count 5.1 T/CUMM (4-12)
[2021-10-06 06:12] LABS: Platelet Count 94 T/CUMM (130-400)
[2021-10-06 06:24] LABS: PT Patient Result 21.2 SECS (10.1-12.1); Partial Thromboplastin Time 36.7 SECS (23.7-32.9)
[2021-10-06 06:29] LABS: Albumin 1.7 G/DL (3.4-5.0); Bilirubin,Total 7.1 MG/DL (0.20-1.00); Calcium 8.8 MG/DL (8.5-10.1); Osmolality,Calculated 274.8 MOS/KG (273-304); Potassium 3.9 MMOL/L (3.5-5.1); Total Protein 5.5 G/DL (6.4-8.2)
[2021-10-06 06:35] LABS: Macrocytosis Slight; Platelet Estimate Decreased; Target Cells Few
[2021-10-06] MEDS: CALCIUM (CARBONATE)/VITAMIN D 600 MG-400 UNIT TABLET PO SCH (08:49)
[2021-10-06] MEDS: POTASSIUM CHLORIDE 20 MEQ TABLET PO SCH (08:50)
[2021-10-06] MEDS: FENOFIBRATE 145 MG TABLET PO SCH (08:50)
[2021-10-06] MEDS: MONTELUKAST 10 MG TABLET PO SCH (08:50)
[2021-10-06] MEDS: CLOPIDOGREL 75 MG TABLET PO SCH (08:50)
[2021-10-06] MEDS: PANTOPRAZOLE 40 MG TABLET PO SCH (08:50)
[2021-10-06] MEDS: MENTHOL/ZINC OXIDE OINT 71 GM JAR TOP SCH ×2 (16:55→20:48)
[2021-10-06] MEDS ORDERED: ACETAMINOPHEN 325 MG TABLET PO PRN (22:44)
[2021-10-07] MEDS: INSULIN REGULAR 100 UNIT/ML SUBCUT SCH ×6 (00:10→20:30)
[2021-10-07 06:10] LABS: Eosinophils % 0.1 % (0.00-10.9); Hematocrit 37.4 VOL% (42.0-52.0); Hemoglobin 12.4 GM/DL (14.0-18.0); Immature Granulocytes % 0.6 %; Immature Granulocytes Absolute 0.04 #; Lymphocytes # 1.4 10*3/uL (1.4-4.0); Lymphocytes % 20.6 % (21.2-54.2); Mean Corpuscular HGB Conc 33.2 GM/DL (32-36); Mean Corpuscular Volume 77.1 FL (87-102); Monocytes # 0.4 10*3/uL (0.11-0.8); Monocytes % 6.2 % (1.7-12.7); NRBC # 0.55 10*3/uL; Neutrophils % 72.5 % (38.7-73.9); Platelet Count 86 T/CUMM (130-400); Red Blood Count 4.85 MC/CUMM (3.8-5.5); White Blood Count 6.8 T/CUMM (4-12)
[2021-10-07 06:16] LABS: INR 1.7; PT Patient Result 18.2 SECS (10.1-12.1); Partial Thromboplastin Time 31.9 SECS (23.7-32.9)
[2021-10-07 06:28] LABS: Macrocytosis Slight; Platelet Estimate Decreased; Target Cells Few
[2021-10-07 06:47] LABS: Albumin 1.7 G/DL (3.4-5.0); Calcium 8.9 MG/DL (8.5-10.1); Osmolality,Calculated 278.4 MOS/KG (273-304); Potassium 4.7 MMOL/L (3.5-5.1); Total Protein 5.8 G/DL (6.4-8.2)
[2021-10-07] MEDS: CLOPIDOGREL 75 MG TABLET PO SCH (09:48)
[2021-10-07] MEDS: APIXABAN 5 MG TABLET PO SCH ×2 (09:48→20:31)
[2021-10-07] MEDS: CALCIUM (CARBONATE)/VITAMIN D 600 MG-400 UNIT TABLET PO SCH (09:49)
[2021-10-07] MEDS: FENOFIBRATE 145 MG TABLET PO SCH (09:49)
[2021-10-07] MEDS: MONTELUKAST 10 MG TABLET PO SCH (09:49)
[2021-10-07] MEDS: POTASSIUM CHLORIDE 20 MEQ TABLET PO SCH (09:49)
[2021-10-07] MEDS: MENTHOL/ZINC OXIDE OINT 71 GM JAR TOP SCH ×2 (09:49→20:31)
[2021-10-07] MEDS: PANTOPRAZOLE 40 MG TABLET PO SCH (09:49)
[2021-10-07] MEDS ORDERED: TUBERCULIN SKIN TEST 0.1 ML SYRINGE INTRADERM ONE (16:17)
[2021-10-08 07:04] LABS: INR 2.8; PT Patient Result 28.9 SECS (10.1-12.1); Partial Thromboplastin Time 38.8 SECS (23.7-32.9)
[2021-10-08] MEDS: CLOPIDOGREL 75 MG TABLET PO SCH (09:10)
[2021-10-08] MEDS: MONTELUKAST 10 MG TABLET PO SCH (09:10)
[2021-10-08] MEDS: APIXABAN 5 MG TABLET PO SCH ×2 (09:10→21:12)
[2021-10-08] MEDS: INSULIN REGULAR 100 UNIT/ML SUBCUT SCH ×4 (09:10→21:51)
[2021-10-08] MEDS: POTASSIUM CHLORIDE 20 MEQ TABLET PO SCH (09:10)
[2021-10-08] MEDS: CALCIUM (CARBONATE)/VITAMIN D 600 MG-400 UNIT TABLET PO SCH (09:10)
[2021-10-08] MEDS: PANTOPRAZOLE 40 MG TABLET PO SCH (09:10)
[2021-10-08] MEDS: FENOFIBRATE 145 MG TABLET PO SCH (09:11)
[2021-10-08] MEDS: MENTHOL/ZINC OXIDE OINT 71 GM JAR TOP SCH ×2 (10:30→21:13)
[2021-10-08] MEDS: ALBUTEROL/IPRATROPIUM 3 ML NEB RESP TX SCH ×2 (15:25→19:48)
[2021-10-08] MEDS: SODIUM CHLORIDE 0.45% 1,000 ML IV SCH (15:25)
[2021-10-08] MEDS: NYSTATIN 500,000 UNIT/5 ML UDCUP SWISH/SWAL SCH ×2 (18:07→21:13)
[2021-10-08] MEDS ORDERED: MORPHINE 2 MG/1 ML SYRINGE IV ONE (20:33)
[2021-10-08] MEDS: INSULIN GLARGINE 100 UNIT/ML SUBCUT SCH (21:13)
[2021-10-09] MEDS: ALBUTEROL/IPRATROPIUM 3 ML NEB RESP TX SCH ×7 (00:16→22:38)
[2021-10-09 05:43] LABS: Basophils % 0.1 % (0.0-0.8); Hematocrit 37.9 VOL% (42.0-52.0); Hemoglobin 12.5 GM/DL (14.0-18.0); Immature Granulocytes % 0.7 %; Immature Granulocytes Absolute 0.06 #; Lymphocytes # 1.5 10*3/uL (1.4-4.0); Lymphocytes % 16.7 % (21.2-54.2); Mean Corpuscular Volume 77.5 FL (87-102); Monocytes # 0.5 10*3/uL (0.11-0.8); Monocytes % 5.1 % (1.7-12.7); NRBC # 0.46 10*3/uL; Neutrophils % 77.4 % (38.7-73.9); Platelet Count 79 T/CUMM (130-400); Red Blood Count 4.89 MC/CUMM (3.8-5.5); Red Cell Distribution Width 26.9 % (9.3-17.3)
[2021-10-09 06:08] LABS: Platelet Estimate Decreased; Target Cells Slight
[2021-10-09 06:11] LABS: INR 4.1; PT Patient Result 40.5 SECS (10.1-12.1); Partial Thromboplastin Time 38.7 SECS (23.7-32.9)
[2021-10-09 06:13] LABS: Albumin 1.8 G/DL (3.4-5.0); Bilirubin,Direct 6.51 MG/DL (0.0-0.20); Bilirubin,Indirect 1.2 MG/DL (0.0-1.0); Bilirubin,Total 7.7 MG/DL (0.20-1.00); Calcium 9.1 MG/DL (8.5-10.1); Osmolality,Calculated 274.5 MOS/KG (273-304); Potassium 4.9 MMOL/L (3.5-5.1)
[2021-10-09] MEDS: INSULIN REGULAR 100 UNIT/ML SUBCUT SCH (07:53)
[2021-10-09] MEDS: CALCIUM (CARBONATE)/VITAMIN D 600 MG-400 UNIT TABLET PO SCH (08:59)
[2021-10-09] MEDS: MENTHOL/ZINC OXIDE OINT 71 GM JAR TOP SCH ×2 (08:59→21:10)
[2021-10-09] MEDS: MONTELUKAST 10 MG TABLET PO SCH (09:00)
[2021-10-09] MEDS: PANTOPRAZOLE 40 MG TABLET PO SCH (09:00)
[2021-10-09] MEDS: CLOPIDOGREL 75 MG TABLET PO SCH (09:00)
[2021-10-09] MEDS: POTASSIUM CHLORIDE 20 MEQ TABLET PO SCH (09:00)
[2021-10-09] MEDS: FENOFIBRATE 145 MG TABLET PO SCH (09:00)
[2021-10-09] MEDS: APIXABAN 5 MG TABLET PO SCH ×2 (09:01→21:10)
[2021-10-09] MEDS: NYSTATIN 500,000 UNIT/5 ML UDCUP SWISH/SWAL SCH ×3 (09:01→21:16)
[2021-10-09] MEDS: SODIUM CHLORIDE 0.45% 1,000 ML IV SCH (09:04)
[2021-10-09] MEDS ORDERED: FUROSEMIDE 40 MG/4 ML VIAL IM SCH (11:30)
[2021-10-09] MEDS ORDERED: FUROSEMIDE 40 MG/4 ML VIAL IV SCH (12:00)
[2021-10-09] MEDS ORDERED: ALBUMIN 25% 12.5 GM/50 ML VIAL IV ONE ×2 (13:00→16:00)
[2021-10-09] MEDS: FUROSEMIDE 40 MG/4 ML VIAL IV SCH (16:24)
[2021-10-09] MEDS: INSULIN GLARGINE 100 UNIT/ML SUBCUT SCH (21:15)
[2021-10-10] MEDS: ALBUTEROL/IPRATROPIUM 3 ML NEB RESP TX SCH ×6 (04:45→23:52)
[2021-10-10 08:14] LABS: Basophils % 0.1 % (0.0-0.8); Hematocrit 35.1 VOL% (42.0-52.0); Hemoglobin 11.7 GM/DL (14.0-18.0); Immature Granulocytes % 0.7 %; Immature Granulocytes Absolute 0.06 #; Lymphocytes # 1.3 10*3/uL (1.4-4.0); Lymphocytes % 14.4 % (21.2-54.2); Mean Corpuscular HGB Conc 33.3 GM/DL (32-36); Mean Corpuscular Volume 76.6 FL (87-102); Monocytes # 0.4 10*3/uL (0.11-0.8); Monocytes % 4.9 % (1.7-12.7); NRBC # 0.16 10*3/uL; Neutrophils % 79.9 % (38.7-73.9); Platelet Count 86 T/CUMM (130-400); Red Blood Count 4.58 MC/CUMM (3.8-5.5); Red Cell Distribution Width 26.2 % (9.3-17.3); White Blood Count 8.8 T/CUMM (4-12)
[2021-10-10] MEDS: PANTOPRAZOLE 40 MG TABLET PO SCH (08:14)
[2021-10-10] MEDS: NYSTATIN 500,000 UNIT/5 ML UDCUP SWISH/SWAL SCH ×3 (08:14→21:25)
[2021-10-10] MEDS: POTASSIUM CHLORIDE 20 MEQ TABLET PO SCH (08:14)
[2021-10-10] MEDS: CALCIUM (CARBONATE)/VITAMIN D 600 MG-400 UNIT TABLET PO SCH (08:14)
[2021-10-10] MEDS: FUROSEMIDE 40 MG/4 ML VIAL IV SCH ×2 (08:14→16:41)
[2021-10-10] MEDS: CLOPIDOGREL 75 MG TABLET PO SCH (08:14)
[2021-10-10] MEDS: MENTHOL/ZINC OXIDE OINT 71 GM JAR TOP SCH ×2 (08:14→21:26)
[2021-10-10] MEDS: FENOFIBRATE 145 MG TABLET PO SCH (08:14)
[2021-10-10] MEDS: APIXABAN 5 MG TABLET PO SCH (08:14)
[2021-10-10] MEDS: MONTELUKAST 10 MG TABLET PO SCH (08:14)
[2021-10-10 08:28] LABS: Calcium 8.1 MG/DL (8.5-10.1); Osmolality,Calculated 283.2 MOS/KG (273-304); Potassium 5.5 MMOL/L (3.5-5.1)
[2021-10-10 08:32] LABS: Albumin 1.7 G/DL (3.4-5.0); Bilirubin,Direct 5.81 MG/DL (0.0-0.20); Bilirubin,Indirect 1.1 MG/DL (0.0-1.0); Bilirubin,Total 6.9 MG/DL (0.20-1.00); Total Protein 5.6 G/DL (6.4-8.2)
[2021-10-10 08:38] LABS: Macrocytosis 1+; Target Cells Few
[2021-10-10 08:39] LABS: Acanthocytes Few; Platelet Estimate Decreased; Polychromasia Slight
[2021-10-10 08:42] LABS: Hypochromia 1+; INR 3.2; PT Patient Result 32.7 SECS (10.1-12.1); Partial Thromboplastin Time 38.2 SECS (23.7-32.9)
[2021-10-10] MEDS ORDERED: SODIUM POLYSTYRENE SULFATE 15 GM/60 ML BOTTLE PO ONE (11:00)
[2021-10-10] MEDS: INSULIN GLARGINE 100 UNIT/ML SUBCUT SCH (21:26)
[2021-10-11] MEDS: ALBUTEROL/IPRATROPIUM 3 ML NEB RESP TX SCH ×5 (03:05→20:13)
[2021-10-11 06:30] LABS: Basophils % 0.2 % (0.0-0.8); Hematocrit 34.7 VOL% (42.0-52.0); Hemoglobin 11.6 GM/DL (14.0-18.0); Immature Granulocytes % 0.4 %; Immature Granulocytes Absolute 0.02 #; Mean Corpuscular HGB Conc 33.4 GM/DL (32-36); Mean Corpuscular Volume 77.3 FL (87-102); Monocytes # 0.3 10*3/uL (0.11-0.8); Monocytes % 5.7 % (1.7-12.7); NRBC # 0.09 10*3/uL; Neutrophils % 73.7 % (38.7-73.9); Platelet Count 88 T/CUMM (130-400); Red Blood Count 4.49 MC/CUMM (3.8-5.5); Red Cell Distribution Width 27.1 % (9.3-17.3); White Blood Count 5.1 T/CUMM (4-12)
[2021-10-11 06:47] LABS: Calcium 8.5 MG/DL (8.5-10.1); Osmolality,Calculated 286.1 MOS/KG (273-304); Potassium 3.3 MMOL/L (3.5-5.1)
[2021-10-11 06:49] LABS: INR 2.6; PT Patient Result 26.8 SECS (10.1-12.1)
[2021-10-11 07:17] LABS: Anisocytosis 2+; Platelet Estimate Decreased; Target Cells 1+
[2021-10-11 07:18] LABS: Burr Cells 1+; Macrocytosis 1+
[2021-10-11] MEDS: POTASSIUM CHLORIDE 20 MEQ TABLET PO SCH (09:03)
[2021-10-11] MEDS: FENOFIBRATE 145 MG TABLET PO SCH (09:03)
[2021-10-11] MEDS: CALCIUM (CARBONATE)/VITAMIN D 600 MG-400 UNIT TABLET PO SCH (09:03)
[2021-10-11] MEDS: CLOPIDOGREL 75 MG TABLET PO SCH (09:03)
[2021-10-11] MEDS: NYSTATIN 500,000 UNIT/5 ML UDCUP SWISH/SWAL SCH ×3 (09:03→21:57)
[2021-10-11] MEDS: PANTOPRAZOLE 40 MG TABLET PO SCH (09:03)
[2021-10-11] MEDS: MENTHOL/ZINC OXIDE OINT 71 GM JAR TOP SCH ×2 (09:04→21:56)
[2021-10-11] MEDS: FUROSEMIDE 40 MG/4 ML VIAL IV SCH ×2 (09:05→15:01)
[2021-10-11] MEDS: MONTELUKAST 10 MG TABLET PO SCH (09:05)
[2021-10-11] MEDS: INSULIN GLARGINE 100 UNIT/ML SUBCUT SCH ×2 (15:00→21:57)
[2021-10-11] MEDS: POTASSIUM CHLORIDE 20 MEQ TABLET PO PRN ×3 (15:36→19:35)
[2021-10-12] MEDS: ALBUTEROL/IPRATROPIUM 3 ML NEB RESP TX SCH ×7 (00:07→23:45)
[2021-10-12 06:41] LABS: Basophils % 0.2 % (0.0-0.8); Hematocrit 38.1 VOL% (42.0-52.0); Hemoglobin 12.4 GM/DL (14.0-18.0); Immature Granulocytes % 0.2 %; Immature Granulocytes Absolute 0.01 #; Lymphocytes # 1.1 10*3/uL (1.4-4.0); Lymphocytes % 21.7 % (21.2-54.2); Mean Corpuscular HGB Conc 32.5 GM/DL (32-36); Mean Corpuscular Volume 79.5 FL (87-102); Monocytes # 0.3 10*3/uL (0.11-0.8); Monocytes % 5.8 % (1.7-12.7); NRBC # 0.26 10*3/uL; Neutrophils % 72.1 % (38.7-73.9); Platelet Count 82 T/CUMM (130-400); Red Blood Count 4.79 MC/CUMM (3.8-5.5); Red Cell Distribution Width 27.8 % (9.3-17.3)
[2021-10-12 06:57] LABS: PT Patient Result 20.9 SECS (10.1-12.1)
[2021-10-12 07:06] LABS: Calcium 8.5 MG/DL (8.5-10.1); Osmolality,Calculated 286.8 MOS/KG (273-304); Potassium 4.1 MMOL/L (3.5-5.1)
[2021-10-12 07:08] LABS: Anisocytosis 2+; Platelet Estimate Decreased; Poikilocytosis 2+; Target Cells 2+
[2021-10-12] MEDS: POTASSIUM CHLORIDE 20 MEQ TABLET PO SCH (08:39)
[2021-10-12] MEDS: MONTELUKAST 10 MG TABLET PO SCH (08:39)
[2021-10-12] MEDS: PANTOPRAZOLE 40 MG TABLET PO SCH (08:39)
[2021-10-12] MEDS: FENOFIBRATE 145 MG TABLET PO SCH (08:39)
[2021-10-12] MEDS: MENTHOL/ZINC OXIDE OINT 71 GM JAR TOP SCH (08:39)
[2021-10-12] MEDS: CALCIUM (CARBONATE)/VITAMIN D 600 MG-400 UNIT TABLET PO SCH (08:39)
[2021-10-12] MEDS: FUROSEMIDE 40 MG/4 ML VIAL IV SCH ×2 (08:39→15:27)
[2021-10-12] MEDS: NYSTATIN 500,000 UNIT/5 ML UDCUP SWISH/SWAL SCH ×3 (08:39→23:32)
[2021-10-12] MEDS: CLOPIDOGREL 75 MG TABLET PO SCH (08:42)
[2021-10-12] MEDS ORDERED: GLUCAGON 1 MG VIAL IM PRN (09:29)
[2021-10-12] MEDS: INSULIN REGULAR 100 UNIT/ML SUBCUT SCH ×2 (10:15→16:49)
[2021-10-12] MEDS ORDERED: FUROSEMIDE 20 MG/2 ML VIAL IM ONE (11:55)
[2021-10-12] MEDS: INSULIN GLARGINE 100 UNIT/ML SUBCUT SCH (21:11)
[2021-10-12] MEDS: APIXABAN 5 MG TABLET PO SCH (22:42)
[2021-10-13] MEDS: MENTHOL/ZINC OXIDE OINT 71 GM JAR TOP SCH ×2 (00:53→09:48)
[2021-10-13] MEDS: ALBUTEROL/IPRATROPIUM 3 ML NEB RESP TX SCH ×6 (03:48→23:45)
[2021-10-13 05:42] LABS: Hematocrit 34.7 VOL% (42.0-52.0); Hemoglobin 11.5 GM/DL (14.0-18.0); Immature Granulocytes % 0.5 %; Immature Granulocytes Absolute 0.03 #; Lymphocytes # 0.9 10*3/uL (1.4-4.0); Lymphocytes % 14.9 % (21.2-54.2); Mean Corpuscular HGB Conc 33.1 GM/DL (32-36); Monocytes # 0.4 10*3/uL (0.11-0.8); Monocytes % 6.3 % (1.7-12.7); NRBC # 0.47 10*3/uL; Neutrophils % 78.3 % (38.7-73.9); Platelet Count 84 T/CUMM (130-400); Red Blood Count 4.39 MC/CUMM (3.8-5.5); Red Cell Distribution Width 27.3 % (9.3-17.3); White Blood Count 6.3 T/CUMM (4-12)
[2021-10-13 05:49] LABS: INR 3.2; PT Patient Result 32.9 SECS (10.1-12.1)
[2021-10-13 05:59] LABS: Calcium 8.8 MG/DL (8.5-10.1); Osmolality,Calculated 278.1 MOS/KG (273-304); Potassium 4.3 MMOL/L (3.5-5.1)
[2021-10-13 06:05] LABS: Platelet Estimate Decreased; Target Cells Slight
[2021-10-13] MEDS: INSULIN REGULAR 100 UNIT/ML SUBCUT SCH ×4 (07:54→23:52)
[2021-10-13] MEDS: FUROSEMIDE 40 MG/4 ML VIAL IV SCH ×2 (09:48→17:31)
[2021-10-13] MEDS: NYSTATIN 500,000 UNIT/5 ML UDCUP SWISH/SWAL SCH ×3 (09:51→23:52)
[2021-10-13] MEDS: CALCIUM (CARBONATE)/VITAMIN D 600 MG-400 UNIT TABLET PO SCH (09:51)
[2021-10-13] MEDS: POTASSIUM CHLORIDE 20 MEQ TABLET PO SCH (09:51)
[2021-10-13] MEDS: FENOFIBRATE 145 MG TABLET PO SCH (09:51)
[2021-10-13] MEDS: CLOPIDOGREL 75 MG TABLET PO SCH (09:51)
[2021-10-13] MEDS: PANTOPRAZOLE 40 MG TABLET PO SCH (09:51)
[2021-10-13] MEDS: MONTELUKAST 10 MG TABLET PO SCH (09:51)
[2021-10-13] MEDS: APIXABAN 5 MG TABLET PO SCH ×2 (09:51→23:52)
[2021-10-14] MEDS: MENTHOL/ZINC OXIDE OINT 71 GM JAR TOP SCH ×2 (01:50→09:03)
[2021-10-14] MEDS: ALBUTEROL/IPRATROPIUM 3 ML NEB RESP TX SCH ×3 (03:40→11:15)
[2021-10-14 05:51] LABS: Hematocrit 37.6 VOL% (42.0-52.0); Hemoglobin 12.3 GM/DL (14.0-18.0); Immature Granulocytes % 0.4 %; Immature Granulocytes Absolute 0.02 #; Lymphocytes % 19.6 % (21.2-54.2); Mean Corpuscular HGB Conc 32.7 GM/DL (32-36); Mean Corpuscular Volume 79.7 FL (87-102); Monocytes # 0.3 10*3/uL (0.11-0.8); Monocytes % 6.5 % (1.7-12.7); NRBC # 0.56 10*3/uL; Neutrophils % 73.5 % (38.7-73.9); Platelet Count 93 T/CUMM (130-400); Red Blood Count 4.72 MC/CUMM (3.8-5.5); White Blood Count 4.9 T/CUMM (4-12)
[2021-10-14 06:05] LABS: Calcium 8.9 MG/DL (8.5-10.1); Potassium 3.7 MMOL/L (3.5-5.1)
[2021-10-14 06:17] LABS: Lymphocytes 9 % (20-55); Macrocytosis Slight; Nucleated Red Blood Cells 19 /100 WBC (0-5); Platelet Estimate Decreased; Target Cells Slight; Total Cells Counted 100
[2021-10-14] MEDS: INSULIN REGULAR 100 UNIT/ML SUBCUT SCH ×2 (07:29→12:41)
[2021-10-14 07:35] VITALS: BP 103/86
[2021-10-14] MEDS: FENOFIBRATE 145 MG TABLET PO SCH (08:58)
[2021-10-14] MEDS: APIXABAN 5 MG TABLET PO SCH (08:58)
[2021-10-14] MEDS: CLOPIDOGREL 75 MG TABLET PO SCH (08:58)
[2021-10-14] MEDS: MONTELUKAST 10 MG TABLET PO SCH (08:58)
[2021-10-14] MEDS: POTASSIUM CHLORIDE 20 MEQ TABLET PO SCH (08:58)
[2021-10-14] MEDS: CALCIUM (CARBONATE)/VITAMIN D 600 MG-400 UNIT TABLET PO SCH (08:58)
[2021-10-14] MEDS: PANTOPRAZOLE 40 MG TABLET PO SCH (08:58)
[2021-10-14] MEDS: FUROSEMIDE 40 MG/4 ML VIAL IV SCH (09:03)
[2021-10-14] MEDS: NYSTATIN 500,000 UNIT/5 ML UDCUP SWISH/SWAL SCH (09:03)
== END 2021-10-14 12:35 | disposition home health service (06) | DRG 637 ==
LOC: N.ED 11:20 → N.EDINP 12:31 → SUATTDRO 12:31 → N.ICU 13:42 → N.3E 10-02 13:53
PROVIDERS: ADMIT Family Medicine; ATTEND Internal Medicine Geriatric Medicine